=== PATIENT | male | born 1935 | race Caucasian/White ===

== ENCOUNTER 2016-08-02 06:51 | Emergency (ER) | payer OTHER ==
[~2016-08-02] VITALS: Ht 175.3 cm; Wt 74.0 kg
[~2016-08-02 06:51] MED LIST: ACET-1311 PO; FRRG PO; IBUP-1050 PO; ZNT/150 PO
[2016-08-02 06:56] VITALS: TEMP 37.8; Ht 175.3 cm; Wt 74.0 kg
[2016-08-02] MEDS ORDERED: SODIUM CHLORIDE 0.9% 1000ML 1,000 ML IV STA (07:10)
[2016-08-02] MEDS ORDERED: ONDANSETRON INJ 2 MG/ML 2 ML VIAL IV STA (07:10)
[2016-08-02] MEDS ORDERED: PANTOprazole INJ 40 MG in SYRINGE 0 ML IV ONE (07:15)
[2016-08-02 07:22] LABS: COMPLETE YES; EOS % 1.3 %; HEMATOCRIT 43.4 % (42-52); LYMPH % 3.4 %; LYMPH ABS # 0.16 K/uL (1.2-3.4); MEAN CELL VOLUME 88.4 fL (80-100); MEAN CORPUSCULAR HEMOGLOBIN 30.5 pg (25-34); MEAN CORPUSCULAR HGB CONC 34.6 g/dl (32-36); MEAN PLATELET VOLUME 9.7 fL (7.4-10.4); MONO % 6.8 %; NEUT % 88.5 %; PLATELET COUNT 183 K/uL (130-400); RED BLOOD COUNT 4.91 M/uL (4.7-6.1); WHITE BLOOD COUNT 4.74 K/uL (4.8-10.8)
[2016-08-02 07:33] LABS: BUN/CREATININE RATIO 15.9 (10-20); CALCIUM 8.7 mg/dl (8.5-10.1); CREATININE 1.4 mg/dl (0.60-1.40); POTASSIUM 3.6 mmol/L (3.5-5.1)
--- NOTE | 2016-08-02 07:38 | EMERGENCY ROOM VISIT NOTE ---
History Report prepared by Juan: Lizbet Crum Under the Supervision of: Dr. Ru Le D.O. First contact with patient: 06:56 Chief Complaint: VOMITING Stated Complaint: DIARRHEA/VOMITING/WEAK/LIGHTHEADED Nursing Triage Summary: Pt presents via BLS to room A. Pt reports nausea, vomitting, diarrhea since last night. pt reports "i feel weak." History of Present Illness The patient is a 80 year old male arriving by ambulance who presents to the Emergency Room with complaints of multiple episodes of vomiting since 1899 last night. Currently, he is feeling nauseous and he rates his discomfort as a 5/10. Since the time of onset, the patient has vomited 20 times. He has also passed 10 -12 movements of watery diarrhea. Patient states that he now feels generally weak, but he denies fevers, chills, headache, chest pain, cough, shortness of breath, abdominal pain, hematochezia, melena, rectal bleeding, hematuria, urinary symptoms or increased swelling to his legs. Patient states that he has recently been around several other people who have been ill as he has been in and out of the hospital with his . 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 He also has a history of bowel obstruction and a duodenal ulcer. He takes Prilosec PRN. Source of History: patient Onset: 1899 last night Position: abdomen Symptom Intensity: 5/10 Quality: other (vomiting) Timing: other (20 episodes) Associated Symptoms: + diarrhea, + nausea, + weakness, No SOB, No abdominal pain, No chest pain, No chills, No fevers Review of Systems See HPI for pertinent positives & negatives. A total of 10 systems reviewed and were otherwise negative. Past Medical & Surgical Medical Problems: (1) Abdominal adhesions (2) Bowel obstruction (3) Bowel obstruction (4) Duodenal ulcer (5) Duodenal ulcer Surgical Problems: (1) H/O abdominal surgery (2) History of bowel resection Social History Smoking Status: Former Smoker Marital Status: Housing Status: lives with significant other Occupation Status: retired Current/Historical Medications Scheduled Acetaminophen (Tylenol), 650 MG PO Q4HR PRN Lactobacillus (Floranex), 1 TAB PO TID Scheduled PRN Ibuprofen (Advil), 200-600 MG PO Q4H PRN for Pain Ondansetron Hcl (Zofran), 4 MG PO Q8H PRN for Nausea Ranitidine Hcl (Zantac), 150 MG PO DAILY PRN for REFLUX Allergies Coded Allergies: Penicillin G (Verified Allergy, Unknown, "YEARS AGO" - UNKNOWN, 08/02/16) Sulfa Antibiotics (Verified Allergy, Unknown, "YEARS AGO" UNKNOWN REACTION , 08/02/16) Physical Exam Vital Signs Date Time Temp Pulse Resp B/P Pulse Ox O2 Delivery O2 Flow Rate FiO2 08/02/16 09:28 99 18 122/54 95 Room Air 08/02/16 08:52 92 08/02/16 07:51 103 20 132/98 100 Room Air 08/02/16 07:16 100 08/02/16 06:56 37.8 97 18 115/78 94 Room Air Physical Exam GENERAL: Patient is awake, alert, and in no acute distress. Patient is resting comfortably and showing no signs of anxiety EYES: The conjunctivae are clear. The pupils are round and reactive. EARS, NOSE, MOUTH AND THROAT: The nose is without any evidence of any deformity. Mucous membranes are dry, tongue is midline NECK: The neck is nontender and supple. RESPIRATORY: Normal respiratory effort is noted there is no evidence of wheezing rhonchi or rales CARDIOVASCULAR: Tachycardic rate but regular rhythm noted but no murmurs rubs or gallops normal S1 normal S2 GASTROINTESTINAL: The abdomen is soft. Bowel sounds are present in all quadrants. Abdomen is nontender MUSCULOSKELETAL/EXTREMITIES: There is no evidence of gross deformity full range of motion is noted in the hips and shoulders SKIN: There is no obvious evidence of any rash. There are no petechiae, pallor or cyanosis noted. NEUROLOGIC: Patient is awake alert and oriented x3 strength is symmetric patellar reflexes are 2+ bilaterally Medical Decision & Procedures ER Provider Diagnostic Interpretation: X-ray results as stated below per interpretation by me and the radiologist. CT results as stated below per my review and radiologist interpretation. ABDOMEN 2VIEW W/PA CHEST RTN CLINICAL HISTORY: Abdominal pain and vomiting COMPARISON STUDY: 11/10/2015 FINDINGS: The erect chest reveals no free air. There is no focal pulmonary consolidation. There are no pleural effusions. Erect and supine views the abdomen reveal multiple air-fluid levels. There are dilated small bowel loops measuring up to 52 mm in diameter. There is a gas and stool collection within the right mid abdomen in an unusual appearing bowel loop, possibly colonic. This measures [address] scanning should be considered in follow-up. IMPRESSION: Abnormal bowel gas pattern. Suspected bowel obstruction. Unusual appearing dilated gas and stool-filled right mid abdominal bowel measuring [address] scanning should be considered in follow-up. Electronically signed by: Manuel Terry M.D. 08/02/2016 7:57 AM Hand fracture, left, concussion, contusion of multiple sites CT OF THE ABDOMEN AND PELVIS WITH CONTRAST CLINICAL HISTORY: Vomiting. Abnormal radiograph. COMPARISON STUDY: CT of the abdomen and pelvis March 01, 2016 and abdominal series August 02, 2016 TECHNIQUE: Following IV administration of 92 mL of Optiray-320, axial images of the abdomen and pelvis were obtained from the lung bases to the proximal femurs. Images were reviewed in the axial, sagittal, and coronal planes. IV contrast was administered without complication. CT DOSE: 566.35 mGycm FINDINGS: Lung bases are clear with the exception of atelectasis. There is no pneumatosis, free air or portal venous gas. A 1.4 cm hypodense lateral segment hepatic lesion is unchanged since CT of February 03, 2014. There is no biliary or pancreatic ductal dilatation. The spleen and adrenal glands are normal. There are bilateral parapelvic cysts. Several small bowel anastomoses are noted. Dilatation at the level of the anastomosis is unchanged since earlier exams. The colon is fluid-filled. Portions of the small bowel are fluid filled. The prostate is mildly enlarged. There is no lymphadenopathy. There are no suspicious skeletal lesions. There is no evidence for a bowel obstruction. IMPRESSION: 1. Several small bowel anastomosis identified. Bowel dilatation at the level of the anastomoses is unchanged since earlier exams. No evidence for a bowel obstruction. 2. Fluid-filled colon as well as portions of the small bowel which may reflect a diarrheal state/gastroenteritis. Electronically signed by: Mike Flores M.D. 08/02/2016 10:56 AM Laboratory Results 08/02/16 07:00 Red Blood Count 4.91, Mean Corpuscular Volume 88.4, Mean Corpuscular Hemoglobin 30.5, Mean Corpuscular Hemoglobin Concent 34.6, Mean Platelet Volume 9.7, Neutrophils (%) (Auto) 88.5, Lymphocytes (%) (Auto) 3.4, Monocytes (%) (Auto) 6.8, Eosinophils (%) (Auto) 1.3, Basophils (%) (Auto) 0.0, Neutrophils # (Auto) 4.20, Lymphocytes # (Auto) 0.16, Monocytes # (Auto) 0.32, Eosinophils # (Auto) 0.06, Basophils # (Auto) 0.00 08/02/16 07:00 Test 08/02/16 07:00 08/02/16 07:45 White Blood Count 4.74 K/uL (4.8-10.8) Red Blood Count 4.91 M/uL (4.7-6.1) Hemoglobin 15.0 g/dL (14.0-18.0) Hematocrit 43.4 % (42-52) Mean Corpuscular Volume 88.4 fL (80-100) Mean Corpuscular Hemoglobin 30.5 pg (25-34) Mean Corpuscular Hemoglobin Concent 34.6 g/dl (32-36) Platelet Count 183 K/uL (130-400) Mean Platelet Volume 9.7 fL (7.4-10.4) Neutrophils (%) (Auto) 88.5 % Lymphocytes (%) (Auto) 3.4 % Monocytes (%) (Auto) 6.8 % Eosinophils (%) (Auto) 1.3 % Basophils (%) (Auto) 0.0 % Neutrophils # (Auto) 4.20 K/uL (1.4-6.5) Lymphocytes # (Auto) 0.16 K/uL (1.2-3.4) Monocytes # (Auto) 0.32 K/uL (0.11-0.59) Eosinophils # (Auto) 0.06 K/uL (0-0.5) Basophils # (Auto) 0.00 K/uL (0-0.2) RDW Standard Deviation 48.3 fL (36.4-46.3) RDW Coefficient of Variation 15.2 % (11.5-14.5) Immature Granulocyte % (Auto) 0.0 % Immature Granulocyte # (Auto) 0.00 K/uL (0.00-0.02) Anion Gap 9.0 mmol/L (3-11) Est Creatinine Clear Calc Drug Dose 42.8 ml/min Estimated GFR () 55.0 Estimated GFR (Non- 47.5 BUN/Creatinine Ratio 15.9 (10-20) Calcium Level 8.7 mg/dl (8.5-10.1) Total Bilirubin 0.9 mg/dl (0.2-1) Direct Bilirubin 0.2 mg/dl (0-0.2) Aspartate Amino Transf (AST/SGOT) 17 U/L (15-37) Alanine Aminotransferase (ALT/SGPT) 23 U/L (12-78) Alkaline Phosphatase 69 U/L (45-117) Total Protein 6.4 gm/dl (6.4-8.2) Albumin 3.4 gm/dl (3.4-5.0) Lipase 85 U/L (73-393) Urine Color DK YELLOW Urine Appearance CLEAR (CLEAR) Urine pH 5.0 (4.5-7.5) Urine Specific [place] 1.024 (1.000-1.030) Urine Protein NEG (NEG) Urine Glucose (UA) NEG (NEG) Urine Ketones NEG (NEG) Urine Occult Blood NEG (NEG) Urine Nitrite NEG (NEG) Urine Bilirubin NEG (NEG) Urine Urobilinogen NEG (NEG) Urine Leukocyte Esterase NEG (NEG) Laboratory results per my review. Medications Administered Medications (Trade) Dose Ordered Sig/Aleah Route Start Time Stop Time Status Last Admin Dose Admin Sodium Chloride (Nss 1000ml) 1,000 ml @ 999 mls/hr Q1H1M STAT IV 08/02/16 07:10 08/02/16 08:10 DC 08/02/16 07:15 999 MLS/HR Ondansetron HCl 4 mg 4 mg NOW STAT IV 08/02/16 07:10 08/02/16 07:11 DC 08/02/16 07:15 4 MG Pantoprazole Sodium 40 mg/ Syringe 10 ml @ 5 mls/min NOW ONCE IV 08/02/16 07:15 08/02/16 07:16 DC 08/02/16 07:21 5 MLS/MIN Sodium Chloride (Nss 500ml) 500 ml @ 999 mls/hr Q31M STAT IV 08/02/16 08:30 08/02/16 09:00 DC 08/02/16 08:37 999 MLS/HR ED Course 0700: The patient was evaluated in room A2. A complete history and physical examination were performed. 0710: Zofran 4 mg IV, NSS bolus IV and Pantoprazole Sodium 40 mg/Syringe 10 ml @ 5 mls/min IV were ordered. 0830: Upon reevaluation, patient was doing well. Additional fluids will bordered. NSS 500 ml @ 999 mls/hr IV was ordered. 0935: I reevaluated the patient at this time and updated him on the results of his radiology reports. He will go to CT for further imaging studies. 1030: NSS 1,000 ml @ 200 mls/hr IV was ordered. 1130: Upon reevaluation, patient was doing well. I updated him on the results of his CT. The hospitalist will be contacted. 1135: After discussion with Ernestine MORAN, the patient will continue to be evaluated by the [facility] Hospitalist for further management. He verbalized his understanding and agreement with this treatment plan. Medical Decision Differential diagnosis: Etiologies such as gastroenteritis, food borne illness, infections, appendicitis , diverticulitis, inflammatory bowel disease, obstruction, GI bleed, biliary pathology, as well as others were entertained. Nursing notes reviewed. The patient is a 80-year-old male who presented to the emergency department for an evaluation of nausea vomiting and diarrhea. The patient had very extensive symptoms and appeared to be dehydrated on physical exam. The patient is a history of bowel obstruction in the past. The patient is also had adhesions. The patient did not appear to have a physical exam consistent with an acute surgical abdomen. He was treated with IV fluids and IV antiemetics and on subsequent reevaluation was feeling much better. The patient was discharged to home but was asked to return when his x-rays were read as possible bowel obstruction. The patient was still waiting for his ride outside and was brought back in through triage. A second encounter was created. The patient at that time was found have a fever. He was initially hypotensive and was treated with further IV hydration. CT the abdomen and pelvis did not reveal any definite signs of bowel obstruction but did show a very significant amount of fluid filled bowel. I do feel that the patient's diarrheal illness is likely to continue giving these findings. This reason I discussed his case with the on- call [facility] hospitalist group. They've agreed to evaluate the patient in the emergency department for further management and disposition. I discussed the patient's laboratory and radiographic studies with him. Consults Time Called: 2930 Consulting Physician: Ernestine MORAN - [facility] Returned Call: [phone] Discussed the patient's case. He will continue to be evaluated by the [facility] hospitalist for further management. Impression Primary Impression: Nausea, vomiting, and diarrhea Additional Impressions: Dehydration, Bowel obstruction Scribe Attestation The scribe's documentation has been prepared under my direction and personally reviewed by me in its entirety. I confirm that the note above accurately reflects all work, treatment, procedures, and medical decision making performed by me. Departure Information Dispostion Being Evaluated By Hospitalist (Sh[facility]) Prescriptions Ondansetron Hcl (ZOFRAN) 4 Mg Tab 4 MG PO Q8H Y for Nausea, #15 TAB Prov: Ru Le, 08/02/16 Referrals Roby Balderrama M.D. (PCP)
--- NOTE | 2016-08-02 07:59 | DIAGNOSTIC IMAGING REPORT ---
ABDOMEN 2VIEW W/PA CHEST RTN CLINICAL HISTORY: Abdominal pain and vomiting COMPARISON STUDY: 11/10/2015 FINDINGS: The erect chest reveals no free air. There is no focal pulmonary consolidation. There are no pleural effusions. Erect and supine views the abdomen reveal multiple air-fluid levels. There are dilated small bowel loops measuring up to 52 mm in diameter. There is a gas and stool collection within the right mid abdomen in an unusual appearing bowel loop, possibly colonic. This measures [address] scanning should be considered in follow-up. IMPRESSION: Abnormal bowel gas pattern. Suspected bowel obstruction. Unusual appearing dilated gas and stool-filled right mid abdominal bowel measuring [address] scanning should be considered in follow-up. Electronically signed by: Manuel Terry M.D. 08/02/2016 7:57 AM
[2016-08-02 08:06] LABS: URINE APPEARANCE CLEAR (CLEAR); URINE BILIRUBIN NEG (NEG); URINE COLOR DK YELLOW; URINE NITRITE NEG (NEG); URINE SPECIFIC GRAVITY 1.024 (1.000-1.030); UROBILINOGEN NEG (NEG)
[2016-08-02 08:09] LABS: MANUAL MICROSCOPIC REQUIRED? NO; REVIEW REQ? NO
[2016-08-02] MEDS ORDERED: SODIUM CHLORIDE 0.9% 500ML 500 ML IV STA (08:30)
[2016-08-02] MEDS ORDERED: ONDA4TAB46 PO (08:50)
[2016-08-02 09:28] VITALS: BP 122/54; PULSE 99; O2SAT 95
[2016-08-02] MEDS ORDERED: LACT1TAB4 PO (10:50)
== END 2016-08-02 09:37 | disposition home or self-care (01) ==
LOC: EDBD 06:51 → C.EDA 06:52
DX: R11.2 Nausea with vomiting, unspecified (principal); R19.7 Diarrhea, unspecified; E86.0 Dehydration; K63.89 Other specified diseases of intestine; Z87.891 Personal history of nicotine dependence

== ENCOUNTER 2016-08-02 10:00 | Inpatient (IN) | payer OTHER ==
[~2016-08-02] VITALS: Ht 175.3 cm; Wt 74.1 kg
[~2016-08-02 10:00] MED LIST changes: +ONDA4TAB46 PO
[2016-08-02] MEDS ORDERED: SODIUM CHLORIDE 0.9% 1000ML 1,000 ML IV STA (10:14)
--- NOTE | 2016-08-02 10:16 | EMERGENCY ROOM VISIT NOTE ---
ED Visit Note First contact with patient: 10:05 The patient is a 80-year-old male who presented to the emergency department after recently being discharged. The patient had symptoms of nausea vomiting and diarrhea. His abdomen exam was not consistent with an acute surgical abdomen however his x-rays were read as signs of possible obstruction. When I realized his x-ray showed signs of possible obstruction the patient was asked to return to the emergency department for a CAT scan the abdomen and pelvis but he had already been discharged and was awaiting his ride. He came back again through triage. Please see his initial chart from today earlier. I will continue to chart his progress on the more recent visit on that earlier history and physical.
[2016-08-02] MEDS ORDERED: OPTIRAY 320 IV PRN (10:30)
[2016-08-02] MEDS ORDERED: LACT1TAB4 PO (10:50)
--- NOTE | 2016-08-02 10:58 | DIAGNOSTIC IMAGING REPORT ---
CT OF THE ABDOMEN AND PELVIS WITH CONTRAST CLINICAL HISTORY: Vomiting. Abnormal radiograph. COMPARISON STUDY: CT of the abdomen and pelvis March 01, 2016 and abdominal series August 02, 2016 TECHNIQUE: Following IV administration of 92 mL of Optiray-320, axial images of the abdomen and pelvis were obtained from the lung bases to the proximal femurs. Images were reviewed in the axial, sagittal, and coronal planes. IV contrast was administered without complication. CT DOSE: 566.35 mGycm FINDINGS: Lung bases are clear with the exception of atelectasis. There is no pneumatosis, free air or portal venous gas. A 1.4 cm hypodense lateral segment hepatic lesion is unchanged since CT of February 03, 2014. There is no biliary or pancreatic ductal dilatation. The spleen and adrenal glands are normal. There are bilateral parapelvic cysts. Several small bowel anastomoses are noted. Dilatation at the level of the anastomosis is unchanged since earlier exams. The colon is fluid-filled. Portions of the small bowel are fluid filled. The prostate is mildly enlarged. There is no lymphadenopathy. There are no suspicious skeletal lesions. There is no evidence for a bowel obstruction. IMPRESSION: 1. Several small bowel anastomosis identified. Bowel dilatation at the level of the anastomoses is unchanged since earlier exams. No evidence for a bowel obstruction. 2. Fluid-filled colon as well as portions of the small bowel which may reflect a diarrheal state/gastroenteritis. Electronically signed by: Mike Flores M.D. 08/02/2016 10:56 AM
[2016-08-02 11:56] VITALS: O2SAT 95; Ht 175.3 cm; Wt 74.1 kg
[2016-08-02] MEDS ORDERED: ONDANSETRON INJ 2 MG/ML 2 ML VIAL IV PRN (12:00)
[2016-08-02 12:21] LABS: HEMATOCRIT 38.8 % (42-52); MEAN CELL VOLUME 88.6 fL (80-100); MEAN CORPUSCULAR HEMOGLOBIN 29.5 pg (25-34); MEAN CORPUSCULAR HGB CONC 33.2 g/dl (32-36); MEAN PLATELET VOLUME 9.9 fL (7.4-10.4); PLATELET COUNT 155 K/uL (130-400); RED BLOOD COUNT 4.38 M/uL (4.7-6.1)
[2016-08-02 12:47] LABS: BUN/CREATININE RATIO 15.5 (10-20); CALCIUM 7.6 mg/dl (8.5-10.1); CREATININE 1.2 mg/dl (0.60-1.40); MAGNESIUM 1.8 mg/dl (1.8-2.4)
[2016-08-02 12:50] LABS: ALB/GLOB RATIO 1.1 (0.9-2); PHOSPHORUS 2.3 mg/dl (2.5-4.9)
[2016-08-02] MEDS: ACETAMINOPHEN 325 MG TAB PO PRN (13:28)
[2016-08-02 13:40] VITALS: BP 112/71; PULSE 93; TEMP 37.8; O2SAT 97
[2016-08-02] MEDS ORDERED: IV FLUIDS COMPLETED PRN (13:45)
--- NOTE | 2016-08-02 14:16 | History and Physical ---
History & Physical Date & Time of Service: Aug 02, 2016 at 13:47 Chief Complaint: Nausea, Vomiting, Diarrhea Primary Care Physician: Roby Balderrama M.D. History of Present Illness 80 year old male who presents to the ER with nausea, vomiting, and diarrhea. Patient reports his symptoms began last evening around 7pm. He reports multiple episodes of vomiting and diarrhea since that time. He denies hematemesis, coffee ground emesis, BRBPR, or dark tarry stools. He denies abdominal pain. He reports chills but did not take his temperature. He reports his is currently admitted to the hospital with the same symptoms. He denies chest pain and shortness of breath. He reports feeling generally weak but denies lightheadedness, dizziness, diaphoresis, or syncopal events. He denies any urinary symptoms. In the ER, abdominal XR was concerning for SBO so CT abd/ pelvis was obtained that did not show a SBO but did show fluid filled colon, likely diarrheal illness. Patient was mildly hypotensive which improved with IVF. Temp noted to be 38.3. Creat 1.2. Past Medical/Surgical History Medical Problems: (1) Bowel obstruction Status: Resolved (2) Duodenal ulcer Status: Resolved Surgical Problems: (1) History of bowel resection Permanent Comment: x6 Status: Resolved Family History FH: pancreatic cancer BROTHER Social History Smoking Status: Former Smoker Alcohol Use: none Marital Status: Housing status: lives with family Multi-Drug Resistant Organisms History of MDRO: No Allergies Coded Allergies: Penicillin G (Verified Allergy, Unknown, "YEARS AGO" - UNKNOWN, 08/02/16) Sulfa Antibiotics (Verified Allergy, Unknown, "YEARS AGO" UNKNOWN REACTION , 08/02/16) Home Medications Scheduled Acetaminophen (Tylenol), 650 MG PO Q4HR PRN Lactobacillus (Floranex), 1 TAB PO TID Scheduled PRN Ibuprofen (Advil), 200-600 MG PO Q4H PRN for Pain Ondansetron Hcl (Zofran), 4 MG PO Q8H PRN for Nausea Ranitidine Hcl (Zantac), 150 MG PO DAILY PRN for REFLUX Review of Systems 10 point review of systems was completed with the pertinent positives and negatives noted per the HPI Physical Exam Vital Signs Date Time Temp Pulse Resp B/P Pulse Ox O2 Delivery O2 Flow Rate FiO2 08/02/16 13:23 37.8 08/02/16 13:20 37.8 94 22 120/64 93 08/02/16 13:19 94 22 120/64 93 Room Air 08/02/16 12:56 86 08/02/16 11:56 95 Room Air 08/02/16 11:32 98 23 116/66 95 Room Air 08/02/16 10:49 94 08/02/16 10:03 38.3 109 18 96/61 94 Room Air General Appearance: WD/WN, no apparent distress Head: normocephalic, atraumatic Eyes: normal inspection, PERRL, EOMI, sclerae normal, funduscopic exam normal ENT: normal ENT inspection, hearing grossly normal, TMs normal, pharynx normal Neck: supple, no adenopathy, thyroid normal, no JVD, no carotid bruits, trachea midline Respiratory/Chest: chest non-tender, lungs clear, normal breath sounds, no respiratory distress, no accessory muscle use Cardiovascular: regular rate, rhythm, no edema, no gallop, no JVD, no murmur, normal peripheral pulses, + tachycardia, + systolic murmur Abdomen/GI: normal bowel sounds, non tender, soft, no organomegaly, no pulsatile mass Back: normal inspection, no CVA tenderness Extremities/Musculoskelatal: normal inspection, no calf tenderness, normal capillary refill, no pedal edema, normal range of motion, non-tender, pelvis stable Neurologic/Psych: saturator II-XII nml as tested, no motor/sensory deficits, alert, normal mood/affect, normal reflexes, oriented x 3 Skin: normal color, warm/dry, no rash Lymphatic: no adenopathy Diagnostics Laboratory Results Results Past 24 Hours Test 08/02/16 12:07 Range/Units White Blood Count 3.70 4.8-10.8 K/uL Red Blood Count 4.38 4.7-6.1 M/uL Hemoglobin 12.9 14.0-18.0 g/dL Hematocrit 38.8 42-52 % Mean Corpuscular Volume 88.6 80-100 fL Mean Corpuscular Hemoglobin 29.5 25-34 pg Mean Corpuscular Hemoglobin Concent 33.2 32-36 g/dl RDW Standard Deviation 49.3 36.4-46.3 fL RDW Coefficient of Variation 15.2 11.5-14.5 % Platelet Count 155 130-400 K/uL Mean Platelet Volume 9.9 7.4-10.4 fL Sodium Level 145 136-145 mmol/L Potassium Level 4.0 3.5-5.1 mmol/L Chloride Level 114 98-107 mmol/L Carbon Dioxide Level 22 21-32 mmol/L Anion Gap 9.0 3-11 mmol/L Blood Urea Nitrogen 19 7-18 mg/dl Creatinine 1.20 0.60-1.40 mg/dl Est Creatinine Clear Calc Drug Dose 49.9 ml/min Estimated GFR () 66.3 Estimated GFR (Non- 57.2 BUN/Creatinine Ratio 15.5 10-20 Random Glucose 111 70-99 mg/dl Lactic Acid Level 1.3 0.4-2.0 mmol/L Calcium Level 7.6 8.5-10.1 mg/dl Phosphorus Level 2.3 2.5-4.9 mg/dl Magnesium Level 1.8 1.8-2.4 mg/dl Total Bilirubin 0.7 0.2-1 mg/dl Aspartate Amino Transf (AST/SGOT) 13 15-37 U/L Alanine Aminotransferase (ALT/SGPT) 20 12-78 U/L Alkaline Phosphatase 58 45-117 U/L Total Protein 5.6 6.4-8.2 gm/dl Albumin 2.9 3.4-5.0 gm/dl Globulin 2.7 2.5-4.0 gm/dl Albumin/Globulin Ratio 1.1 0.9-2 Lipase 79 73-393 U/L Microbiology Results 08/02/16 Blood Culture, Zuleyma Batch Pending 08/02/16 Blood Culture, Ordered Pending Diagnostic Radiology CT ABD/PELVIS IMPRESSION: 1. Several small bowel anastomosis identified. Bowel dilatation at the level of the anastomoses is unchanged since earlier exams. No evidence for a bowel obstruction. 2. Fluid-filled colon as well as portions of the small bowel which may reflect a diarrheal state/gastroenteritis. Impression Assessment and Plan NAUSEA, VOMITING, DIARRHEA; SIRS - admit to med/surg - patient presenting with N/V/D x 1 day; noted to have similar symptoms as well - meets SIRS criteria with temp 38.3, mild tachycardia, and borderline hypotension - HR and BP improved with IVF - CT showing liquid throughout colon, likely diarrhea illness - due to SIRS, will empirically place on Cipro and Flagyl until stool studies are resulted - lactic acid WNL - supportive care with IVF, IV PPI, PRN antiemetics - clear liquid diet for now DVT PROPHYLAXIS - SQ Heparin DISPO - In my clinical judgment this beneficiary meets acute admission criteria, established by [facility], that includes being hospitalized through two midnights. Attending Note: Patient is interviewed and examined along with Ernestine MORAN Patient is a 80 Yr old male with with PMH of Duodenal Ulcer, Bowel resection presents with history of nausea, vomiting, diarrhea, generalized weakness and low grade fever since 1 day duration. He denies any abdominal pain blood in stools or emesis. His had similar symptoms and is currently being treated at [facility]. He denies any other relevant history. Physical Exam: Vitals signs as above General: No apparent distress CVS: S1, S2, + murmur, Tachycardia Resp: CTA Abd: soft, non tender, no guarding/rigidity Neuro: No focal deficits Assessment and plan: SIRS and Gastroenteritis: Currently mildly hypotensive, tachycardic CT abd: No signs of obstruction Start on IV fluids, Zofran PRN Empirically start on Cipro and flagyl Plan to DC antibiotics if stool studies/Blood cultures negative Advance diet as tolerated H/O Duodenal Ulcer and bowel resection: Stable No signs of obstruction on CT abd Continue PPI DVT Px: Heparin SQ Advanced Directives Existing Advance Directive: Yes Existing Living Will: Yes Existing Power of Lead Slot Technician: Yes VTE Prophylaxis VTE Risk Assessment Done? Y/N: Yes Risk Level: Moderate
[2016-08-02 14:26] LABS: INR 1.1 (0.9-1.1); PROTHROMBIN TIME (PATIENT) 11.6 SECONDS (9.0-12.0)
[2016-08-02] MEDS: PANTOprazole INJ 40 MG in SYRINGE 0 ML IV SCH ×2 (15:04→15:05)
[2016-08-02] MEDS: METRONIDAZOLE / NSS 500 MG in PREMIXED NSS 100 ML IV SCH ×2 (15:06→21:29)
[2016-08-02] MEDS: SODIUM CHLORIDE 0.9% 1000ML 1,000 ML IV SCH (15:06)
[2016-08-02 15:35] VITALS: BP 105/57; PULSE 83; TEMP 37.8; O2SAT 94
[2016-08-02] MEDS: LACTOBACILLUS ACIDOPHILUS (FLORANEX) TAB PO SCH ×2 (16:37→21:24)
[2016-08-02] MEDS: CIPROFLOXACIN / D5W 400 MG in PREMIXED IN D5W 200 ML IV SCH (16:37)
[2016-08-02] MEDS: HEPARIN SOD 5000 UNIT/0.5 ML CARP SQ SCH (21:27)
[2016-08-03] MEDS: SODIUM CHLORIDE 0.9% 1000ML 1,000 ML IV SCH (00:09)
[2016-08-03 00:44] VITALS: BP 103/61; PULSE 76; TEMP 37.2; O2SAT 94
[2016-08-03] MEDS: CIPROFLOXACIN / D5W 400 MG in PREMIXED IN D5W 200 ML IV SCH ×2 (02:36→14:36)
[2016-08-03] MEDS: METRONIDAZOLE / NSS 500 MG in PREMIXED NSS 100 ML IV SCH ×3 (05:56→22:29)
[2016-08-03 07:12] LABS: HEMATOCRIT 33.4 % (42-52); MEAN CELL VOLUME 88.6 fL (80-100); MEAN CORPUSCULAR HEMOGLOBIN 29.4 pg (25-34); MEAN CORPUSCULAR HGB CONC 33.2 g/dl (32-36); MEAN PLATELET VOLUME 10.3 fL (7.4-10.4); PLATELET COUNT 127 K/uL (130-400); RED BLOOD COUNT 3.77 M/uL (4.7-6.1); WHITE BLOOD COUNT 3.57 K/uL (4.8-10.8)
[2016-08-03 07:35] VITALS: BP 111/61; PULSE 70; TEMP 36.8; O2SAT 95
[2016-08-03 07:47] LABS: BUN/CREATININE RATIO 14.9 (10-20); CALCIUM 7.4 mg/dl (8.5-10.1); CREATININE 1.1 mg/dl (0.60-1.40); POTASSIUM 3.5 mmol/L (3.5-5.1)
[2016-08-03 08:00] VITALS: O2SAT 95
[2016-08-03 08:03] LABS: PHOSPHORUS 1.7 mg/dl (2.5-4.9)
[2016-08-03] MEDS: HEPARIN SOD 5000 UNIT/0.5 ML CARP SQ SCH ×2 (09:00→20:20)
[2016-08-03] MEDS: LACTOBACILLUS ACIDOPHILUS (FLORANEX) TAB PO SCH ×3 (09:08→20:17)
[2016-08-03] MEDS: ACETAMINOPHEN 325 MG TAB PO PRN (15:39)
[2016-08-03 16:00] VITALS: BP 121/67; PULSE 75; TEMP 36.8; O2SAT 97
--- NOTE | 2016-08-03 17:23 | Progress Note ---
Internal Med Progress Note Date of Service: Aug 03, 2016. (Ernestine Moran CRNP) Provider Documentation: SUBJECTIVE: Patient seen with Dr. Mancuso. Patient reports much improvement in his symptoms today. No further diarrhea or vomiting. Tolerating clear liquids. Feels generally weak, no lightheadedness or dizziness. No chest pain or shortness of breath. OBJECTIVE: Vital Signs-as noted below Exam: please refer to Dr. Mancuso's addendum for physical exam Lab data as noted below. ASSESSMENT & PLAN: NAUSEA, VOMITING, DIARRHEA; SIRS - patient improving today, no further diarrhea or vomiting - patient presenting with N/V/D x 1 day; noted to have similar symptoms as well - meets SIRS criteria with temp 38.3, mild tachycardia, and borderline hypotension - HR and BP improved with IVF - CT showing liquid throughout colon, likely diarrhea illness - due to SIRS, will empirically place on Cipro and Flagyl until stool studies are resulted (still pending); but suspect viral gastroenteritis - lactic acid WNL - supportive care with IVF, IV PPI, PRN antiemetics - d/c fluids today, change IV PPI to PO ranitidine, advance diet DVT PROPHYLAXIS - SQ Heparin DISPO - expect d/c home tomorrow (Ernestine Moran CRNP) ASSESSMENT & PLAN: Attending Note: Patient is interviewed and examined along with Ernestine MORAN Patient states he feels much better when compared to yesterday. States diarrhea resolved. Denies any nausea, vomiting, abd pain. Physical Exam: Vitals signs as noted above General: Moderately built and nourished, No distress CVS; S1, S2, + murmur Resp: CTA Abd: Soft, non tender, BS present Neuro: No focal deficits Assessment and plan: SIRS and Gastroenteritis: Improving clinically CT abd: No signs of obstruction Tolerating diet, DC IV fluids, Zofran PRN Continue Cipro and Flagyl Stool studies pending Will advance diet H/O Duodenal Ulcer and bowel resection: Stable No signs of obstruction on CT abd Continue PPI DVT Px: Heparin SQ Disposition: Plan to discharge tomorrow if stable Vital Signs: Date Time Temp Pulse Resp B/P Pulse Ox O2 Delivery O2 Flow Rate FiO2 08/03/16 16:00 Room Air 08/03/16 16:00 36.8 75 18 121/67 97 Room Air 08/03/16 08:00 95 Room Air 08/03/16 07:35 36.8 70 18 111/61 95 Room Air 08/03/16 00:44 37.2 76 18 103/61 94 Room Air 08/03/16 00:00 Room Air (Will Mancuso MD) Lab Results: Results Past 24 Hours Test 08/03/16 06:36 Range/Units White Blood Count 3.57 4.8-10.8 K/uL Red Blood Count 3.77 4.7-6.1 M/uL Hemoglobin 11.1 14.0-18.0 g/dL Hematocrit 33.4 42-52 % Mean Corpuscular Volume 88.6 80-100 fL Mean Corpuscular Hemoglobin 29.4 25-34 pg Mean Corpuscular Hemoglobin Concent 33.2 32-36 g/dl RDW Standard Deviation 49.4 36.4-46.3 fL RDW Coefficient of Variation 15.2 11.5-14.5 % Platelet Count 127 130-400 K/uL Mean Platelet Volume 10.3 7.4-10.4 fL Sodium Level 146 136-145 mmol/L Potassium Level 3.5 3.5-5.1 mmol/L Chloride Level 115 98-107 mmol/L Carbon Dioxide Level 24 21-32 mmol/L Anion Gap 7.0 3-11 mmol/L Blood Urea Nitrogen 16 7-18 mg/dl Creatinine 1.10 0.60-1.40 mg/dl Est Creatinine Clear Calc Drug Dose 54.5 ml/min Estimated GFR () 73.6 Estimated GFR (Non- 63.5 BUN/Creatinine Ratio 14.9 10-20 Random Glucose 83 70-99 mg/dl Calcium Level 7.4 8.5-10.1 mg/dl Phosphorus Level 1.7 2.5-4.9 mg/dl (Will Mancuso MD)
[2016-08-03] MEDS ORDERED: RANITIDINE HCL 150 MG TAB PO ONE (17:30)
[2016-08-04 00:31] VITALS: BP 124/67; PULSE 63; TEMP 36.7; O2SAT 95
[2016-08-04] MEDS: CIPROFLOXACIN / D5W 400 MG in PREMIXED IN D5W 200 ML IV SCH (02:11)
[2016-08-04] MEDS: METRONIDAZOLE / NSS 500 MG in PREMIXED NSS 100 ML IV SCH (05:45)
[2016-08-04 06:02] LABS: MEAN CELL VOLUME 87.1 fL (80-100); MEAN CORPUSCULAR HEMOGLOBIN 29.6 pg (25-34); MEAN CORPUSCULAR HGB CONC 33.9 g/dl (32-36); PLATELET COUNT 120 K/uL (130-400); RED BLOOD COUNT 3.79 M/uL (4.7-6.1); WHITE BLOOD COUNT 3.92 K/uL (4.8-10.8)
[2016-08-04 06:40] LABS: BUN/CREATININE RATIO 13.1 (10-20); CALCIUM 7.9 mg/dl (8.5-10.1); CREATININE 0.88 mg/dl (0.60-1.40); POTASSIUM 3.3 mmol/L (3.5-5.1)
[2016-08-04] MEDS: LACTOBACILLUS ACIDOPHILUS (FLORANEX) TAB PO SCH (07:43)
[2016-08-04] MEDS: HEPARIN SOD 5000 UNIT/0.5 ML CARP SQ SCH (07:45)
[2016-08-04] MEDS ORDERED: RANITIDINE HCL 150 MG TAB PO SCH (08:00)
[2016-08-04 08:13] VITALS: BP 155/77; PULSE 69; TEMP 36.6; O2SAT 98
[2016-08-04] MEDS ORDERED: POTASSIUM CHLORIDE 10 MEQ TABCR PO ONE (08:45)
--- NOTE | 2016-08-04 09:09 | DIAGNOSTIC IMAGING REPORT ---
KUB CLINICAL HISTORY: Abdominal distention, vomiting, diarrhea COMPARISON STUDY: 08/02/2016 FINDINGS: There is mild gaseous prominence the colon. There are no transition zone to indicate a bowel obstruction. There is a minimally dilated left mid abdominal small bowel loop. There is a linear opacity projecting of the pelvis. This is present the prior study. This may represent prior extravasated contrast. There are multiple pelvic basin calcifications likely representing phleboliths. IMPRESSION: Diminished bowel distention. Electronically signed by: Manuel Terry M.D. 08/04/2016 9:06 AM Dictated Date/Time: 08/04/2016 9:04 AM
--- NOTE | 2016-08-04 10:54 | Hospitalist Progress Note ---
Hospitalist Progress Note Date of Service Aug 04, 2016. Subjective Pt evaluation today including: conversation w/ patient, physical exam, lab review, review of studies, review of inpatient medication list Patient is seen and examined at bedside. States having an episode semiformed BM this morning. Abdominal distention better after BM. Denies any nausea, vomiting, abdominal pain. Medications Medications (Trade) Dose Ordered Sig/Aleah Route Start Time Stop Time Status Last Admin Dose Admin Ranitidine HCl (zANTac TAB) 150 mg 1730 ONCE PO 08/03/16 17:30 08/03/16 17:31 DC 08/03/16 19:15 150 MG Ranitidine HCl (zANTac TAB) 150 mg QAM PO 08/04/16 08:00 09/03/16 07:59 08/04/16 07:43 150 MG Potassium Chloride (Klor-Con M10) 40 meq NOW ONCE PO 08/04/16 08:45 08/04/16 09:04 DC 08/04/16 09:37 40 MEQ Objective Vital Signs Date Time Temp Pulse Resp B/P Pulse Ox O2 Delivery O2 Flow Rate FiO2 08/04/16 08:13 36.6 69 18 155/77 98 Room Air 08/04/16 02:20 Room Air 08/04/16 00:31 36.7 63 18 124/67 95 Room Air 08/03/16 16:00 Room Air 08/03/16 16:00 36.8 75 18 121/67 97 Room Air Physical Exam General Appearance: WD/WN, no apparent distress Eyes: normal inspection, PERRL, EOMI, sclerae normal ENT: normal ENT inspection, hearing grossly normal, TMs normal, pharynx normal Neck: supple, no adenopathy, thyroid normal, no JVD, no carotid bruits, trachea midline Respiratory/Chest: chest non-tender, lungs clear, normal breath sounds, no respiratory distress, no accessory muscle use Cardiovascular: regular rate, rhythm, no edema, no gallop, no JVD, + systolic murmur Abdomen: normal bowel sounds, non tender, soft, no organomegaly, no pulsatile mass Extremities: normal range of motion, non-tender, normal inspection, no pedal edema, no calf tenderness, normal capillary refill, pelvis stable Neurologic/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: 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, no motor/sensory deficits, alert, normal mood/affect, oriented x 3 Skin: normal color, warm/dry, no rash Lymphatic: no adenopathy Laboratory Results Last 24 Hours Test 08/04/16 05:30 White Blood Count 3.92 K/uL Red Blood Count 3.79 M/uL Hemoglobin 11.2 g/dL Hematocrit 33.0 % Mean Corpuscular Volume 87.1 fL Mean Corpuscular Hemoglobin 29.6 pg Mean Corpuscular Hemoglobin Concent 33.9 g/dl RDW Standard Deviation 47.6 fL RDW Coefficient of Variation 14.9 % Platelet Count 120 K/uL Mean Platelet Volume 10.0 fL Sodium Level 145 mmol/L Potassium Level 3.3 mmol/L Chloride Level 113 mmol/L Carbon Dioxide Level 24 mmol/L Anion Gap 8.0 mmol/L Blood Urea Nitrogen 12 mg/dl Creatinine 0.88 mg/dl Est Creatinine Clear Calc Drug Dose 68.1 ml/min Estimated GFR () 94.7 Estimated GFR (Non- 81.7 BUN/Creatinine Ratio 13.1 Random Glucose 87 mg/dl Calcium Level 7.9 mg/dl Diagnostic Results KUB: Diminished bowel distention. CT Abd: 1. Several small bowel anastomosis identified. Bowel dilatation at the level of the anastomoses is unchanged since earlier exams. No evidence for a bowel obstruction. 2. Fluid-filled colon as well as portions of the small bowel which may reflect a diarrheal state/gastroenteritis. Assessment and Plan Patient is a 80 Yr old male with with PMH of Duodenal Ulcer, Bowel resection presents with history of nausea, vomiting, diarrhea, generalized weakness and low grade fever since 1 day duration. He denies any abdominal pain blood in stools or emesis. His had similar symptoms and is currently being treated at [facility]. He denies any other relevant history. SIRS and Gastroenteritis: Likely Viral origin Stool for C.diff is negative SIRS criteria parameters improved CT abd: No signs of obstruction Repeat KUB:No obstruction IV fluids discontinued, Zofran PRN DC IV Abx: Cipro and flagyl Blood cultures negative to date Tolerating diet H/O Duodenal Ulcer and bowel resection: Stable No signs of obstruction on CT abd Continue PPI DVT Px: Heparin SQ
--- NOTE | 2016-08-04 11:05 | Discharge Instructions ---
Discharge Instructions Admission Reason for Admission: Nausea, Vomiting And Diarrhea Discharge Discharge Diagnosis / Problem: Viral Gastroenteritis Discharge Goals Goal(s): Decrease discomfort, Improve function Activity Recommendations Activity Limitations: resume your previous activity Exercise/Sports Limitations: as tolerated . Instructions / Follow-Up Instructions / Follow-Up Follow up with your Primary Care Provider in 1 week Take adequate oral intake to keep yourself hydrated Seek immediate medical attention if you develop any fever, abdominal pain, worsening diarrhea, blood in stools Current Hospital Diet Patient's current hospital diet: Regular Diet Discharge Diet Recommended Diet: Regular Diet Pending Studies Studies pending at discharge: yes List of pending studies: Stool Culture Medical Emergencies . Who to Call and When: Medical Emergencies: If at any time you feel your situation is an emergency, please call 911 immediately. . Non-Emergent Contact Non-Emergency issues call your: Primary Care Provider Call Non-Emergent contact if: you have a fever, your pain is worsening, you have any medication questions . . "Provider Documentation" section prepared by Will Mancuso. VTE Core Measure Inpt VTE Proph given/why not?: Unfractionated heparin SQ
[2016-08-04 11:13] VITALS: BP 155/77; PULSE 69; TEMP 36.6; O2SAT 98
--- NOTE | 2016-08-04 11:33 | Discharge Summary ---
Discharge Summary Admission Date: Aug 02, 2016 at 12:20 Discharge Date: Aug 04, 2016 Discharge Disposition: Home Principal Diagnosis: SIRS, Viral Gastroenteritis Secondary Diagnoses/Problems: H/O duodenal ulcer and recurrent SBOs Procedures: CT ABD/PELVIS IMPRESSION 08/02/16: 1. Several small bowel anastomosis identified. Bowel dilatation at the level of the anastomoses is unchanged since earlier exams. No evidence for a bowel obstruction. 2. Fluid-filled colon as well as portions of the small bowel which may reflect a diarrheal state/gastroenteritis. KUB XR IMPRESSION 08/04/16: Diminished bowel distention. Medication Reconciliation Continued Medications: Acetaminophen (Tylenol) 325 Mg Tab 650 MG PO Q4HR PRN, 0 Refills Ibuprofen (Advil) 200 Mg Tab 200-600 MG PO Q4H PRN for Pain, TAB Lactobacillus (Floranex) 1 Tab Tab 1 TAB PO TID Ondansetron Hcl (Zofran) 4 Mg Tab 4 MG PO Q8H PRN for Nausea, #15 TAB Ranitidine Hcl (Zantac) 150 Mg Tab 150 MG PO DAILY PRN for REFLUX Admission Information HPI (per Admitting provider): 80 year old male who presents to the ER with nausea, vomiting, and diarrhea. Patient reports his symptoms began last evening around 7pm. He reports multiple episodes of vomiting and diarrhea since that time. He denies hematemesis, coffee ground emesis, BRBPR, or dark tarry stools. He denies abdominal pain. He reports chills but did not take his temperature. He reports his is currently admitted to the hospital with the same symptoms. He denies chest pain and shortness of breath. He reports feeling generally weak but denies lightheadedness, dizziness, diaphoresis, or syncopal events. He denies any urinary symptoms. In the ER, abdominal XR was concerning for SBO so CT abd/ pelvis was obtained that did not show a SBO but did show fluid filled colon, likely diarrheal illness. Patient was mildly hypotensive which improved with IVF. Temp noted to be 38.3. Creat 1.2. Physical Exam (per Admitting): General Appearance: WD/WN, no apparent distress Head: normocephalic, atraumatic Eyes: normal inspection, PERRL, EOMI, sclerae normal, funduscopic exam normal ENT: normal ENT inspection, hearing grossly normal, TMs normal, pharynx normal Neck: supple, no adenopathy, thyroid normal, no JVD, no carotid bruits, trachea midline Respiratory/Chest: chest non-tender, lungs clear, normal breath sounds, no respiratory distress, no accessory muscle use Cardiovascular: regular rate, rhythm, no edema, no gallop, no JVD, no murmur , normal peripheral pulses, + tachycardia, + systolic murmur Abdomen/GI: normal bowel sounds, non tender, soft, no organomegaly, no pulsatile mass Back: normal inspection, no CVA tenderness Extremities/Musculoskelatal: normal inspection, no calf tenderness, normal capillary refill, no pedal edema, normal range of motion, non-tender, pelvis stable 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 His had similar symptoms and was admitted to the hospital as well. On admission, patient met SIRS criteria with tachycardia, fever, and borderline BP. Vitals improved with IVF. Lactic acid was negative. CT abd/ pelvis was negative for acute findings. Due to SIRS criteria, patient was started empirically on Cipro and Flagyl. These were discontinued once stools studies resulted as negative. Blood cultures were negative as well. Patient was given IVF, IV PPI, and PRN antiemetics. Patient was started on a clear liquid diet which was advanced and he tolerated well. IVF were stopped and IV PPI was changed to PO ranitidine which he takes at home. On the day of discharge, patient was complaining of some increased abdominal distention however denied nausea or abdominal pain. KUB was obtained that was negative for obstruction. Patient had a bowel movement and distention improved. Labs were unremarkable during admission. Total time spent on discharge = 30 minutes This includes examination of the patient, discharge planning, medication reconciliation, and communication with other providers. Discharge Instructions Discharge Instructions Admission Reason for Admission: Nausea, Vomiting And Diarrhea Discharge Discharge Diagnosis / Problem: Viral Gastroenteritis Discharge Goals Goal(s): Decrease discomfort, Improve function Activity Recommendations Activity Limitations: resume your previous activity Exercise/Sports Limitations: as tolerated . Instructions / Follow-Up Instructions / Follow-Up Follow up with your Primary Care Provider in 1 week Take adequate oral intake to keep yourself hydrated Seek immediate medical attention if you develop any fever, abdominal pain, worsening diarrhea, blood in stools Current Hospital Diet Patient's current hospital diet: Regular Diet Discharge Diet Recommended Diet: Regular Diet Pending Studies Studies pending at discharge: yes List of pending studies: Stool Culture Medical Emergencies . Who to Call and When: Medical Emergencies: If at any time you feel your situation is an emergency, please call 911 immediately. . Non-Emergent Contact Non-Emergency issues call your: Primary Care Provider Call Non-Emergent contact if: you have a fever, your pain is worsening, you have any medication questions . . "Provider Documentation" section prepared by Will Mancuso. VTE Core Measure Inpt VTE Proph given/why not?: Unfractionated heparin SQ Additional Copies To Roby Balderrama M.D.
--- NOTE | 2016-08-08 06:51 | EDITING REQUIRED CODING QUERY ---
CODING QUERY To promote full compliance with coding requirements relating to patient care, provider participation is requested in all cases of neonatal social worker uncertainty. Please assist us with the question(s) below: Coding Question(s): Dr. Mancuso, The following is documented in the chart: Patient meets SIRS criteria with temp 38.3, mild tachycardia, and borderline hypotension?. 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
== END 2016-08-04 11:53 | disposition home or self-care (01) | DRG 392 ==
LOC: ENRESERVTM → ENRESERVDT → C.EDB 10:15 → C.MS4W 12:20
PROVIDERS: ADMIT Internal Medicine; ATTEND Internal Medicine
DX: A08.4 Viral intestinal infection, unspecified (principal); R65.10 Systemic inflammatory response syndrome (SIRS) of non-infectious origin without acute organ dysfunction; K26.9 Duodenal ulcer, unspecified as acute or chronic, without hemorrhage or perforation; Z87.891 Personal history of nicotine dependence; Z90.49 Acquired absence of other specified parts of digestive tract; Z79.899 Other long term (current) drug therapy; E86.0 Dehydration; K63.89 Other specified diseases of intestine

== ENCOUNTER → 2016-08-31 | Outpatient (CLI) | payer OTHER ==
[~2016-08-31] MED LIST changes: -FRRG PO; +LACT1TAB4 PO
== END | disposition home or self-care (01) ==
LOC: C.PATHSPEC 18:17
PROVIDERS: ATTEND Urology
DX: R97.20 Elevated prostate specific antigen [PSA] (principal)

== ENCOUNTER → 2018-02-18 | Outpatient (CLI) | payer OTHER ==
[~2018-02-18] MED LIST changes: +GADAVIST IV PRN; -ONDA4TAB46 PO
--- NOTE | 2018-02-19 07:02 | DIAGNOSTIC IMAGING REPORT ---
PROSTATE MRI COMBO CLINICAL HISTORY: Elevated PSA. TECHNIQUE: Multisequence, multiplanar MR imaging of the prostate was performed before and after the intravenous administration of 7.5 cc of Gadavist. Post contrast imaging was performed utilizing dynamic enhancement. Additional postprocessing was performed on a separate [employer] workstation by the radiologist for 3-D volumetric segmentation of the prostate and contouring of region(s) of interest (SAMIA) for targeting. COMPARISON: None. FINDINGS: Prostate: The prostate measures 5.1 x 4.2 x 4.3 cm cm (DynaCAD prostate boundary segmentation volume 46.75 mL). Moderate changes of benign prostatic hyperplasia. Precontrast T1 weighted imaging demonstrates no evidence of intrinsic T1 hyperintensity to suggest hemorrhage. Suspicious lesion(s) described below: Lesion (Pipeliner CRMaCAD SAMIA) 1: Note is made of a 2 x 0.7 x 0.9 cm T2 hypointense focus within the left anterior mid aspect of the gland which appears to involve the peripheral and transitional zones. This demonstrates increased signal intensity on the diffusion-weighted sequence with diminished signal intensity on the ADC sequence with evidence for increased vascularity. This is considered a PI-RADS: 5 lesion. Clinically significant cancer is highly likely to be present. Seminal vesicles normal. Bladder: Normal. Bowel: Visualized portion of the rectum normal. Peritoneum: No free fluid in the pelvis. Lymph nodes: No lymphadenopathy in the visualized portion of the pelvis. Vasculature: Iliac vessels patent. Abdominal wall: Normal. Osseous structures: Normal bone marrow signal intensity. IMPRESSION: 1. 2 x 0.7 x 0.9 cm T2 hypointense focus with restricted diffusion within the left anterior mid aspect of the gland which appears to involve the peripheral and transitional zones. Associated hypervascularity. This is considered a PI-RADS: 5 lesion. Clinically significant cancer is highly likely to be present. This lesion has been segmented for targeted biopsy. 2. Moderate benign prostatic hyperplasia. Electronically signed by: Mike Flores M.D. 02/19/2018 7:00 AM Dictated Date/Time: 02/18/2018 10:59 AM
== END | disposition home or self-care (01) ==
LOC: C.MRIBC 08:20
PROVIDERS: ATTEND Urology
DX: N40.0 Benign prostatic hyperplasia without lower urinary tract symptoms (principal)

== ENCOUNTER 2020-10-29 12:15 | Observation (INO) ==
[2020-10-29] MEDS ORDERED: NITROGLYCERIN SL 0.4 MG/TAB TAB SL PRN (12:26)
[2020-10-29] MEDS ORDERED: ASPIRIN CHEW 324 MG PO STA (12:26)
--- NOTE | 2020-10-29 12:31 | Emergency Department Note ---
Impression & Plan Chest pain, HTN (hypertension), Leukopenia, High serum chloride ED Provider Note NAME: KRISTIN ALVAREZ AGE: 85 SEX: M : 1935 ARRIVES VIA: Walk-In INFORMANT: Patient ED PROVIDER(S): Robel Brink DO CHIEF COMPLAINT: chest pain HPI: Patient is an 85-year-old male who presents the ER with a past medical history of hypertension and previous smoker for chest pain. Describes as a pressure going to bilateral shoulders. No belly pain, nausea, vomiting, or d iarrhea. Denies any shortness of breath. Admits to losing his about 2 weeks ago. No other exacerbating or remitting factors. He has never had this before. Pain feels like a pressure and radiates throughout bilateral chest. About 2-3 out of 10 currently. No other exacerbating or remitting factors. ROS: See above HPI for pertinent positives & negatives. A total of 10 systems reviewed and were otherwise negative. PAST MEDICAL HISTORY:See Below PAST SURGICAL HISTORY:See Below FAMILY HISTORY:See Below SOCIAL HISTORY:See Below HOME MEDICATIONS:See Below ALLERGIES:See Below VITALS:See Below PHYSICAL EXAMINATION: GENERAL: Sitting up in bed, alert, well appearing, well nourished, no distress, non-toxic EYE EXAM: normal conjunctiva. OROPHARYNX: no exudate, no erythema, lips, buccal mucosa, and tongue normal and mucous membranes are moist NECK: supple, no nuchal rigidity, no adenopathy, non-tender LUNGS: Clear to auscultation. Normal chest wall mechanics HEART: no murmurs, S1 normal and S2 normal ABDOMEN: abdomen soft, non-tender, normo-active bowel sounds, no masses, no rebound or guarding. BACK: Back is symmetrical on inspection and there is no deformity, no midline tenderness, no CVA tenderness. SKIN: no rashes and no bruising UPPER EXTREMITIES: upper extremities are grossly normal. LOWER EXTREMITIES: No pitting edema. NEURO EXAM: Normal sensorium, cranial nerves II-XII grossly intact, normal speech, no gross weakness of arms, no gross weakness of legs. MEDICAL DECISION MAKING: Patient is an 85-year-old male with past medical history of hypertension previous smoker, mitral regurg who presents the ER for chest pain. Goes to bilateral shoulders. Does not go to his back. IV was established blood work was obtained. Labs show mild leukopenia 4000. No significant anemia. BMP with slightly elevated chloride. LFTs bilirubin and lipase was negative. Troponin was negative. He was given aspirin nitro. Chest pain resolved. EKG was nondiagnostic. Updated discussed with hospitalist for further observation. Discussed with Pt concerning signs and symptoms to watch out for. Pt was instructed to follow up with their PCP and discussed with the patient their option to return to the ED at anytime for persistent or worsening symptoms. The appropriate anticipatory guidance and out-patient management, including indications for return to the emergency department, were explained at length to the patient and understood. Triage Nursing notes reviewed. Limited review of prior medical records performed Vital Signs: reviewed and remarkable for no significant abnormalities Differential diagnosis: Differential diagnoses includes but is not limited to acute coronary syndrome, myocardial infarction, pericarditis, pulmonary embolus, aortic dissection, pneumonia, pneumothorax, musculoskeletal, shingles, esophageal. ER treatment provided: See below Diagnostics interpreted by me: ECG: Sinus tach at a rate of 102 Left axis Left bundle branch block QTC [address] changes in the high lateral leads No significant change in the left bundle from previous performed in July of this year Cardiac Monitoring: An order was placed for continuous cardiac monitoring. The monitor shows a rate of 98 with sinus rhythm. Laboratory studies: As stated above and show below. Imaging studies: Portable AP upright 1 view the chest shows no focal infiltrate pneumothorax. Consultation(s): Discussed with Dr. Daniel Fernandes for further evaluation Procedures: none Critical Care: None Past Med/Surg History Medical History (Updated 10/29/20 @ 16:36 by Robel Brink DO) Anemia Aortic insufficiency Aortic stenosis Moderate 07/2019 Bowel obstruction had 8 episodes and last one was 1988 BPH (benign prostatic hyperplasia) Duodenal ulcer hx GERD (gastroesophageal reflux disease) Hypertension IBS (irritable bowel syndrome) Malignant melanoma of skin of nose Mitral regurgitation Osteoarthritis Prostate cancer 04/2018--radiation Tubular adenoma of colon Surgical History History of appendectomy History of bilateral cataract extraction History of bowel resection "x6" History of colonoscopy removal of polyp History of esophagogastroduodenoscopy (EGD) History of eyelid surgery bilt History of Mohs micrographic surgery for skin cancer History of prostate biopsy x3--malignant History of removal of cyst off of face History of repair of left rotator cuff History of surgical removal of pilonidal cyst Family History (Updated 08/25/20 @ 08:13 by Heather Toribio MA) Grandfather , in his eighties No problems noted. Grandmother , not known No problems noted. Grandfather No problems noted. Grandmother No problems noted. Father , at age 84 committed suicide No problems noted. Sister , In her seventies of appendicitis No problems noted. Brother , at age 80 cancer, they did a Whipple surgery n him No problems noted. Brother , in his sixties of blood clot after surgery Stomach cancer Sister , In her sixties of a blood clot. Had breast cancer No problems noted. Sister , in her eighties cause unknown No problems noted. Son Age: 62 No problems noted. Daughter Age: 53 No problems noted. Son Age: 58 No problems noted. Son Age: 52 No problems noted. Other No family history of adverse response to anesthesia Denies family history of Ovarian cancer Prostate cancer Coronary heart disease Myocardial infarction Breast cancer Colorectal cancer Social History (Updated 08/25/20 @ 08:13 by Heather Toribio MA) Smoking Status: Never smoker Age Started Using Tobacco: 13; Age Quit Using Tobacco: 49; packs per day: 2; Years Smoked: 36; Cigarettes Per Day: 40; Number of Years Since Quit: 35; Second Hand Exposure: Yes (father smoked); Hx Alcohol Use: No Hx Substance Use: No Preferred Language: Khmer Communication Ability: Effective Visual Impairment: No Limitations Hearing Ability: Hard of Hearing 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 Beliefs That Will Affect Care: None marital status: Current Living Situation: Spouse current occupational status: retired Feels Safe at Home: Yes Childhood Exposure to Second-Hand Smoke: Yes caffeine: Yes (3 cups a day) during the past year weight has: remained stable Dental Care, Regularly: Yes Physical Activity Frequency: Does not Exercise Seatbelt Use: always Sunscreen Use: No Assistive Devices: Glasses Allergies Allergies Allergy/AdvReac Type Severity Reaction Status Date / Time penicillin G Allergy Unknown "YEARS Verified 10/29/20 13:22 AGO" - UNKNOWN Sulfa (Sulfonamide Allergy Unknown "YEARS Verified 10/29/20 13:22 Antibiotics) AGO" UNKNOWN REACTION Home Meds Home Medications Medication Instructions Recorded Confirmed ferrous sulfate 325 mg (65 mg 650 mg PO Q OTHER DAY tab 10/10/18 10/29/20 iron) tablet docusate sodium 100 mg capsule 100 mg PO QAM cap 04/09/19 10/29/20 cholecalciferol (vitamin D3) 50 4,000 units PO QAM tab 10/10/19 10/29/20 mcg (2,000 unit) tablet mecobalamin (vitamin B12) 500 mcg SL HS 02/16/20 10/29/20 famotidine 20 mg PO HS 08/13/20 10/29/20 losartan 100 mg PO QAM 10/29/20 10/29/20 Previous Rx's Medication Instructions Recorded Wheeled Walker #1 ea 06/14/20 tamsulosin 0.4 mg capsule 0.4 mg PO HS #90 cap 08/04/20 Results & Data (ED) Vital Signs Vital Signs - 24 hr 10/29/20 12:17 10/29/20 12:27 10/29/20 12:32 Temperature 36.6 C Temperature Source Temporal Artery Scan Oral Pulse Rate 79 78 Respiratory Rate 16 23 Blood Pressure 151/72 H 188/85 H Blood Pressure Mean 98 119 Pulse Oximetry 98 Oxygen Delivery Method Room Air Room Air Sepsis Recent Fever Within 48 Hours No Sepsis New/Unexplained Change in Mental Status N/A Sepsis Action Taken by Nursing No Action Required 10/29/20 12:34 10/29/20 12:40 10/29/20 13:27 Temperature Temperature Source Pulse Rate 79 82 84 Respiratory Rate 20 21 25 H Blood Pressure Blood Pressure Mean Pulse Oximetry Oxygen Delivery Method Sepsis Recent Fever Within 48 Hours Sepsis New/Unexplained Change in Mental Status Sepsis Action Taken by Nursing 10/29/20 13:30 10/29/20 13:40 10/29/20 13:50 Temperature Temperature Source Pulse Rate 82 66 71 Respiratory Rate 17 14 Blood Pressure Blood Pressure Mean Pulse Oximetry Oxygen Delivery Method Sepsis Recent Fever Within 48 Hours Sepsis New/Unexplained Change in Mental Status Sepsis Action Taken by Nursing 10/29/20 14:00 10/29/20 14:10 10/29/20 14:23 Temperature Temperature Source Pulse Rate 74 72 65 Respiratory Rate 19 18 Blood Pressure Blood Pressure Mean Pulse Oximetry Oxygen Delivery Method Sepsis Recent Fever Within 48 Hours Sepsis New/Unexplained Change in Mental Status Sepsis Action Taken by Nursing 10/29/20 14:30 10/29/20 14:40 10/29/20 14:50 Temperature Temperature Source Pulse Rate 68 64 64 Respiratory Rate 19 17 18 Blood Pressure Blood Pressure Mean Pulse Oximetry Oxygen Delivery Method Sepsis Recent Fever Within 48 Hours Sepsis New/Unexplained Change in Mental Status Sepsis Action Taken by Nursing 10/29/20 14:56 10/29/20 14:57 10/29/20 15:00 Temperature Temperature Source Pulse Rate 59 L 64 64 Respiratory Rate 17 14 15 Blood Pressure 163/73 H Blood Pressure Mean 103 Pulse Oximetry Oxygen Delivery Method Sepsis Recent Fever Within 48 Hours Sepsis New/Unexplained Change in Mental Status Sepsis Action Taken by Nursing 10/29/20 15:10 10/29/20 15:20 10/29/20 15:30 Temperature Temperature Source Pulse Rate 65 65 61 Respiratory Rate 17 20 14 Blood Pressure Blood Pressure Mean Pulse Oximetry Oxygen Delivery Method Sepsis Recent Fever Within 48 Hours Sepsis New/Unexplained Change in Mental Status Sepsis Action Taken by Nursing 10/29/20 15:40 10/29/20 15:50 10/29/20 16:00 Temperature Temperature Source Pulse Rate 64 69 64 Respiratory Rate 15 14 16 Blood Pressure Blood Pressure Mean Pulse Oximetry Oxygen Delivery Method Sepsis Recent Fever Within 48 Hours Sepsis New/Unexplained Change in Mental Status Sepsis Action Taken by Nursing 10/29/20 16:10 Temperature Temperature Source Pulse Rate 66 Respiratory Rate 22 Blood Pressure Blood Pressure Mean Pulse Oximetry Oxygen Delivery Method Sepsis Recent Fever Within 48 Hours Sepsis New/Unexplained Change in Mental Status Sepsis Action Taken by Nursing Laboratory Data Result diagrams: 10/29/20 12:32 10/29/20 12:32 Lab Results 10/29/20 10/29/20 10/29/20 Range/Units 12:32 12:32 13:15 WBC 4.19 L (4.8-10.8) K/uL RBC 4.65 L (4.7-6.1) M/uL Hgb 13.4 L (14.0-18.0) g/dL Hct 41.3 L (42-52) % MCV 88.8 (80-100) fL MCH 28.8 (25-34) pg MCHC 32.4 (32-36) g/dL RDW Std Deviation 46.9 H (36.4-46.3) fL RDW Coeff of Victor Hugo 14.3 (11.5-14.5) % Plt Count 177 (130-400) K/uL MPV 10.0 (7.4-10.4) fL Immature Gran % (Auto) 0.2 % Neut % (Auto) 72.3 % Lymph % (Auto) 13.4 % [place] % (Auto) 12.2 % Eos % (Auto) 1.7 % Baso % (Auto) 0.2 % Neut # (Auto) 3.03 (1.4-6.5) K/uL Lymph # (Auto) 0.56 L (1.2-3.4) K/uL [place] # (Auto) 0.51 (0.11-0.59) K/uL Eos # (Auto) 0.07 (0-0.5) K/uL Baso # (Auto) 0.01 (0-0.2) K/uL Immature Gran # (Auto) 0.01 (0.00-0.02) K/uL Sodium 140 (136-145) mmol/L Potassium 3.5 (3.5-5.1) mmol/L Chloride 110 H (98-107) mmol/L Carbon Dioxide 26 (21-32) mmol/L Anion Gap 4.0 (3-11) BUN 11 (7-18) mg/dl Creatinine 1.06 (0.6-1.4) mg/dl Est Cr Clr Drug Dosing 50.2 ml/min Est GFR ( Amer) 74.3 Est GFR (Non-Af Amer) 64.1 BUN/Creatinine Ratio 10.5 (10-20) Glucose 90 (70-99) mg/dl Calcium 9.1 (8.5-10.1) mg/dl Total Bilirubin 0.5 (0.2-1) mg/dl AST 15 (15-37) U/L ALT 21 (12-78) U/L Alkaline Phosphatase 106 (45-117) U/L Troponin I < 0.015 (0-0.045) ng/ml Total Protein 7.6 (6.4-8.2) gm/dl Albumin 4.4 (3.4-5.0) gm/dl Globulin 3.2 (2.5-4.0) gm/dl Albumin/Globulin Ratio 1.4 (0.9-2) Lipase 110 (73-393) U/L COVID-19 Eval Order CovFluRsv at [facility] SARS-CoV-2 (PCR) (Negative) Influenza Type A (PCR) (Neg) Influenza Type B (PCR) (Neg) RSV (RT-PCR) (Neg) 10/29/20 Range/Units 13:15 WBC (4.8-10.8) K/uL RBC (4.7-6.1) M/uL Hgb (14.0-18.0) g/dL Hct (42-52) % MCV (80-100) fL MCH (25-34) pg MCHC (32-36) g/dL RDW Std Deviation (36.4-46.3) fL RDW Coeff of Victor Hugo (11.5-14.5) % Plt Count (130-400) K/uL MPV (7.4-10.4) fL Immature Gran % (Auto) % Neut % (Auto) % Lymph % (Auto) % [place] % (Auto) % Eos % (Auto) % Baso % (Auto) % Neut # (Auto) (1.4-6.5) K/uL Lymph # (Auto) (1.2-3.4) K/uL [place] # (Auto) (0.11-0.59) K/uL Eos # (Auto) (0-0.5) K/uL Baso # (Auto) (0-0.2) K/uL Immature Gran # (Auto) (0.00-0.02) K/uL Sodium (136-145) mmol/L Potassium (3.5-5.1) mmol/L Chloride (98-107) mmol/L Carbon Dioxide (21-32) mmol/L Anion Gap (3-11) BUN (7-18) mg/dl Creatinine (0.6-1.4) mg/dl Est Cr Clr Drug Dosing ml/min Est GFR ( Amer) Est GFR (Non-Af Amer) BUN/Creatinine Ratio (10-20) Glucose (70-99) mg/dl Calcium (8.5-10.1) mg/dl Total Bilirubin (0.2-1) mg/dl AST (15-37) U/L ALT (12-78) U/L Alkaline Phosphatase (45-117) U/L Troponin I (0-0.045) ng/ml Total Protein (6.4-8.2) gm/dl Albumin (3.4-5.0) gm/dl Globulin (2.5-4.0) gm/dl Albumin/Globulin Ratio (0.9-2) Lipase (73-393) U/L COVID-19 Eval Order SARS-CoV-2 (PCR) NEGATIVE (Negative) Influenza Type A (PCR) Negative (Neg) Influenza Type B (PCR) Negative (Neg) RSV (RT-PCR) Negative (Neg) Administered Medications Nitroglycerin (Nitroglycerin Sl 0.4 Mg/Tab Tab) 0.4 mg SL PRN PRN PRN Reason: chest pain Stop: 11/28/20 12:25 Last Admin: 10/29/20 12:48 Dose: 0.4 mg Documented by: [id number] Discontinued Medications Aspirin (Aspirin Chew 324 Mg) 324 mg PO NOW STA Stop: 10/29/20 12:27 Last Admin: 10/29/20 12:48 Dose: 324 mg Documented by: [id number] Imaging Data Radiologist's Impression: Chest X-Ray 10/29/20 12:27 XR chest 1V portable HISTORY: 85 years-old Male Chest Pain acute atypical chest pain COMPARISON: Chest radiograph 08/13/2020 TECHNIQUE: Portable AP view the chest FINDINGS: Cardiac silhouette is mildly enlarged. No pneumothorax, pleural effusion, airspace consolidation or overt pulmonary edema. Degenerative changes of the shoulders and spine. IMPRESSION: No acute process. ACT 112: Negative or not required by law. The above report was generated using voice recognition software. It may contain grammatical, syntax or spelling errors. Electronically signed by: Herminio Hare M.D. 10/29/2020 12:53 PM Discharge Plan Visit Data Chief Complaint: Cardiac Assessment Stated Complaint: ELEVATED B/P PAIN IN CHEST & SHOULDERS ED Provider: Robel Brink Discharge Problem: Chest pain, HTN (hypertension), Leukopenia, High serum chloride Forms Stand Alone Forms: My [employer] Prescriptions Prescriptions: No Action ferrous sulfate [FeroSul] 325 mg (65 mg iron) tablet 650 mg PO Q OTHER DAY RF: 0 docusate sodium [Colace] 100 mg capsule 100 mg PO QAM RF: 0 cholecalciferol (vitamin D3) 50 mcg (2,000 unit) tablet 4,000 units PO QAM RF: 0 tamsulosin [Flomax] 0.4 mg capsule 0.4 mg PO HS Qty: 90 RF: 1 (DME) Wheeled Walker Misc See Rx Instructions .MEDSUPPLY Qty: 1 RF: 0 mecobalamin (vitamin B12) 1,000 mcg tablet,disintegrating 500 mcg SL HS RF: 0 famotidine 20 mg tablet 20 mg PO HS RF: 0 losartan 100 mg tablet 100 mg PO QAM RF: 0 Discharge Problem: Chest pain Qualifiers: Chest pain type: unspecified Qualified Code(s): R07.9 - Chest pain, unspecified HTN (hypertension) Qualifiers: Hypertension type: unspecified Qualified Code(s): I10 - Essential (primary) hypertension Leukopenia Qualifiers: Leukopenia type: unspecified Qualified Code(s): D72.819 - Decreased white blood cell count, unspecified
[2020-10-29 12:39] LABS: Basophils # (auto) 0.01 K/uL (0-0.2); Basophils % (auto) 0.2 %; Eosinophils # (auto) 0.07 K/uL (0-0.5); Eosinophils % (auto) 1.7 %; Hematocrit (blood only) 41.3 % (42-52); Hemoglobin 13.4 g/dL (14.0-18.0); Immature Granulocytes # (auto) 0.01 K/uL (0.00-0.02); Immature Granulocytes % (auto) 0.2 %; Lymphocytes # (auto) 0.56 K/uL (1.2-3.4); Lymphocytes % (auto) 13.4 %; Mean Corpuscular Hemoglobin 28.8 pg (25-34); Mean Corpuscular Hgb Conc 32.4 g/dL (32-36); Mean Corpuscular Volume 88.8 fL (80-100); Monocytes # (auto) 0.51 K/uL (0.11-0.59); Monocytes % (auto) 12.2 %; Neutrophils # (auto) 3.03 K/uL (1.4-6.5); Neutrophils % (auto) 72.3 %; Platelet Count 177 K/uL (130-400); RDW Coefficient of Variation 14.3 % (11.5-14.5); RDW Standard Deviation 46.9 fL (36.4-46.3); Red Blood Count 4.65 M/uL (4.7-6.1); White Blood Count 4.19 K/uL (4.8-10.8)
--- NOTE | 2020-10-29 12:54 | XRay Report ---
XR chest 1V portable HISTORY: 85 years-old Male Chest Pain acute atypical chest pain COMPARISON: Chest radiograph 08/13/2020 TECHNIQUE: Portable AP view the chest FINDINGS: Cardiac silhouette is mildly enlarged. No pneumothorax, pleural effusion, airspace consolidation or o vert pulmonary edema. Degenerative changes of the shoulders and spine. IMPRESSION: No acute process. ACT 112: Negative or not required by law. The above report was generated using voice recognition software. It may contain grammatical, syntax o r spelling errors. Electronically signed by: Herminio Hare M.D. 10/29/2020 12:53 PM
[2020-10-29 12:57] LABS: Alanine Aminotransferase 21 U/L (12-78); Albumin Level 4.4 gm/dl (3.4-5.0); Aspartate Aminotransferase 15 U/L (15-37); BUN Creatinine Ratio 10.5 (10-20); Blood Urea Nitrogen 11 mg/dl (7-18); Calcium 9.1 mg/dl (8.5-10.1); Carbon Dioxide 26 mmol/L (21-32); Chloride 110 mmol/L (98-107); Creatinine Clr Calc Pharmacy 50.2 ml/min; Est GFR (African American) 74.3; Est GFR (Non-African American) 64.1; Glucose 90 mg/dl (70-99); Lipase 110 U/L (73-393); Potassium 3.5 mmol/L (3.5-5.1); Sodium 140 mmol/L (136-145)
[2020-10-29 13:01] LABS: Albumin Globulin Ratio 1.4 (0.9-2); Alkaline Phosphatase 106 U/L (45-117); Bilirubin,Total 0.5 mg/dl (0.2-1); Globulin 3.2 gm/dl (2.5-4.0); Total Protein 7.6 gm/dl (6.4-8.2); Troponin I < 0.015 ng/ml (0-0.045)
--- NOTE | 2020-10-29 13:48 | History & Physical Report ---
Date of Service October 29, 2020 Assessment & Plan (1) Atypical chest pain: Serially trend troponins Nitroglycerin appears to be helpful therefore to treat his BP will start nitro 2% 1 inch paste Consult cardiology in a.m. to assess need for stress testing ?alternative etiologies including GI and MSK from shoulder pains appear to also be possibilities but need to rule out ACS initially (2) Hypertensive urgency: BP 208/84 in ER Known Hx white coat hypertension and increased stress/grief with his dying 2 weeks ago Multiple recent changes to his BP meds (amlodipine caused leg swelling and losartan recently increased 50 -> 100mg daily Continue losartan 100mg PO daily Start nitro paste 2% 1 inch while admitted (consider [facility]MN on discharge) (3) Aortic stenosis: Moderate on Echo 08/2020, no significant change to last year (4) Iron malabsorption: Continue ferrous sulphate 650mg PO Q2D (5) Gastritis: Continue famotidine 20mg PO HS (6) BPH (benign prostatic hyperplasia): Continue tamsulosin 0.4mg HS Admission and Anticipated Discharge Date Admission Date: October 29, 2020 History of Present Illness Chief Complaint: Chest pain Primary Care Provider: Adithya Allen MD Darcie Hill is an 85-year-old male with moderate aortic stenosis who presents to the ER with chest pain. He finds it difficult to explain his pain but uses words of heaviness/tightness. He reports it coming on gradually when he woke up this morning around 3:30am. He occasionally gets shoulder pains related to arthritis but never chest pains. Today he had both but unclear if they were related. On one occasion twisting to the left may have made the chest pain wo rse. Chest pain is substernal, severity 10/10 at worst, currently 3/10. Improved with nitroglycerin given in ER. No worse on walking around the house or with his breakfast this morning. He did consider reflux becing the cause and he took Mylanta but unclear whether this made a difference. His grandson was visiting from [place]. At around 11am the patient was having a throbbing headache in addition to a high blood pressure therefore decided to come to the ER. He denies any fevers, chills, cough, URI symptoms. No palpitations, claudication, presyncope or syncope. He ate a bowl of His blood pressure has been elevated recently which has been changing his medication with his PCP. His stress has been very high recently with the of his 2 weeks ago. Recently was put on amlodipine but this caused foot swelling so was discontinued in favor of increasing his losartan (50 ->100mg, taken increased dose just for the last few days). In the ER BP was as high as 208/84, initial troponin negative, EKG showed no new ischemic changes to prior. He was referred to medicine for admission and ongoing management of chest pain rule out MA. Allergies Allergy/AdvReac Type Severity Reaction Status Date / Time penicillin G Allergy Unknown "YEARS Verified 10/29/20 13:22 AGO" - UNKNOWN Sulfa (Sulfonamide Allergy Unknown "YEARS Verified 10/29/20 13:22 Antibiotics) AGO" UNKNOWN REACTION Home Medications Medication Instructions Recorded Confirmed Type ferrous sulfate 325 mg (65 mg 650 mg PO Q OTHER DAY tab 10/10/18 10/29/20 History iron) tablet docusate sodium 100 mg capsule 100 mg PO QAM cap 04/09/19 10/29/20 History cholecalciferol (vitamin D3) 50 4,000 units PO QAM tab 10/10/19 10/29/20 History mcg (2,000 unit) tablet mecobalamin (vitamin B12) 500 mcg SL HS 02/16/20 10/29/20 History Wheeled Walker #1 ea 06/14/20 09/13/20 Rx tamsulosin 0.4 mg capsule 0.4 mg PO HS #90 cap 08/04/20 10/29/20 Rx famotidine 20 mg PO HS 08/13/20 10/29/20 History losartan 100 mg PO QAM 10/29/20 10/29/20 History Past Med/Surg History Medical History Anemia Aortic insufficiency Aortic stenosis Moderate 07/2019 Bowel obstruction had 8 episodes and last one was 1988 BPH (benign prostatic hyperplasia) Duodenal ulcer hx GERD (gastroesophageal reflux disease) Hypertension IBS (irritable bowel syndrome) Malignant melanoma of skin of nose Mitral regurgitation Osteoarthritis Prostate cancer 04/2018--radiation Tubular adenoma of colon Surgical History History of appendectomy History of bilateral cataract extraction History of bowel resection "x6" History of colonoscopy removal of polyp History of esophagogastroduodenoscopy (EGD) History of eyelid surgery bilt History of Mohs micrographic surgery for skin cancer History of prostate biopsy x3--malignant History of removal of cyst off of face History of repair of left rotator cuff History of surgical removal of pilonidal cyst Family History Grandfather , in his eighties No problems noted. Grandmother , not known No problems noted. Grandfather No problems noted. Grandmother No problems noted. Father , at age 84 committed suicide No problems noted. Sister , In her seventies of appendicitis No problems noted. Brother , at age 80 cancer, they did a Whipple surgery n him No problems noted. Brother , in his sixties of blood clot after surgery Stomach cancer Sister , In her sixties of a blood clot. Had breast cancer No problems noted. Sister , in her eighties cause unknown No problems noted. Son Age: 62 No problems noted. Daughter Age: 53 No problems noted. Son Age: 58 No problems noted. Son Age: 52 No problems noted. Other No family history of adverse response to anesthesia Denies family history of Ovarian cancer Prostate cancer Coronary heart disease Myocardial infarction Breast cancer Colorectal cancer Social History Smoking Status: Former smoker Age Started Using Tobacco: 13; Age Quit Using Tobacco: 49; packs per day: 2; Years Smoked: 36; Cigarettes Per Day: 40; Number of Years Since Quit: 35; Second Hand Exposure: Yes (father smoked); Hx Alcohol Use: No Hx Substance Use: No Preferred Language: Zimbabwean Communication Ability: Effective Visual Impairment: No Limitations Hearing Ability: Hard of Hearing Weight Recorder Required: No Beliefs That Will Affect Care: None marital status: Current Living Situation: Alone Current Living Situation Comment: recently current occupational status: retired Other Information That Helps Us Care for You: No Feels Safe at Home: Yes Safety Concerns: Feels Safe At This Time Childhood Exposure to Second-Hand Smoke: Yes caffeine: Yes (3 cups a day) during the past year weight has: remained stable Dental Care, Regularly: Yes Physical Activity Frequency: Does not Exercise Seatbelt Use: always Sunscreen Use: No Assistive Devices: Glasses Review of Systems Review of Systems: All systems reviewed & are unremarkable except as noted in HPI & below Physical Exam Constitutional: WD/WN, vitals as above Eyes: + anicteric sclerae; normal pupil size ENMT: external ear and nose normal, oropharynx normal Neck: trachea midline Respiratory: normal respiratory effort, lungs clear to auscultation Cardiovascular: Rate/Rhythm: regular rate and regular rhythm Heart Sounds: + murmur (2/6 systolic LLSB) Vessels: no JVD Extremities: normal capillary refill; no calf tenderness and no pedal edema Gastrointestinal (Abdomen): normal bowel sounds, soft, nontender, no hepatosplenomegaly Musculoskeletal: no cyanosis or clubbing, extremities motor strength 5/5 Skin: no rashes, warm and dry Neurologic: moves all extremities and awake; not confused Psychiatric: A+Ox3, euthymic affect Results & Data Results & Data ([facility]) Vital Signs (Past 12 Hours) Vital Signs Temp Pulse Resp BP Pulse Ox 10/29/20 13:30 82 17 10/29/20 13:27 84 25 H 10/29/20 12:40 82 21 10/29/20 12:34 79 20 10/29/20 12:32 78 23 188/85 H 10/29/20 12:17 36.6 C 79 16 151/72 H 98 Diagnostic Findings XR chest 1V portable IMPRESSION: No acute process. Medications Administered ER medications given: Aspirin 324 mg p.o. Nitroglycerin 0.4 mg SL ECG Indication: chest pain Rate (beats per minute): 102 Rhythm: sinus tachycardia Findings: + LBBB and + left axis deviation; no acute ischemic change Comparison ECG Date: from (August 13, 2020) Change: the following changes noted (PVCs no longer present) PG Care Time/CCT Total # of Minutes Spent Total Time Spent with Patient: Total time spent is greater than 50% in coordination of care (as documented) at patient's floor/unit and/or counseling patient: Coding Level of Care Code 53573 OBS Care - Level 3 Diagnoses Atypical chest pain R07.89 Hypertensive urgency I16.0 Aortic stenosis I35.0 Iron malabsorption K90.9 Gastritis K29.70 BPH (benign prostatic hyperplasia) N40.0
[2020-10-29 14:27] LABS: Influenza A virus by PCR Negative (Neg); Influenza B virus by PCR Negative (Neg); RSV by PCR Negative (Neg); SARS CoV2 RNA(COVID-19) InHosp NEGATIVE (Negative)
--- NOTE | 2020-10-29 16:18 | Electrocardiogram Report ---
Test Reason : Blood Pressure : / mmHG Vent. Rate : 102 BPM Atrial Rate : 102 BPM P-R Int : 194 ms QRS Dur : 130 ms QT Int : 352 ms P-R-T Axes : 080 -61 091 degrees QTc Int : 458 ms Poor data quality, interpretation may be adversely affected Sinus tachycardia Left axis deviation Left ventricular hypertrophy with QRS widening and repolarization abnormality Abnormal ECG When compared with ECG of 13-AUG-2020 12:05, Premature ventricular complexes are no longer Present [place] interval has decreased Minimal criteria for Septal infarct are no longer Present Confirmed by Ru Vera ([id number]) on 10/29/2020 4:17:48 PM Referred By: Confirmed By:Ru Vera
[2020-10-29] MEDS: NITROGLYCERIN 2% OINTMENT 30GM TUBE EXT SCH (17:22)
[2020-10-29] MEDS ORDERED: hydrALAZINE HCL 20 MG/ML VIAL IV PRN (17:31)
[2020-10-29] MEDS: FAMOTIDINE 20 MG TAB PO SCH (21:10)
[2020-10-29] MEDS: CYANOCOBALAMIN 500 MCG TABLET (VITAMIN B-12) PO SCH (21:10)
[2020-10-29] MEDS: TAMSULOSIN HCL 0.4 MG CAP PO SCH (21:10)
[2020-10-29] MEDS: MELATONIN 3 MG TAB PO PRN (22:42)
[2020-10-30] MEDS: NITROGLYCERIN 2% OINTMENT 30GM TUBE EXT SCH ×4 (00:09→17:03)
[2020-10-30] MEDS: ACETAMINOPHEN 325 MG TAB PO PRN (06:09)
[2020-10-30 07:30] LABS: BUN Creatinine Ratio 12.6 (10-20); Blood Urea Nitrogen 13 mg/dl (7-18); Calcium 8.4 mg/dl (8.5-10.1); Carbon Dioxide 26 mmol/L (21-32); Chloride 113 mmol/L (98-107); Creatinine Clr Calc Pharmacy 52.2 ml/min; Est GFR (African American) 77.9; Est GFR (Non-African American) 67.2; Glucose 84 mg/dl (70-99); Sodium 142 mmol/L (136-145)
[2020-10-30 07:35] LABS: Troponin I < 0.015 ng/ml (0-0.045)
[2020-10-30] MEDS: DOCUSATE SODIUM 100 MG CAP PO SCH (07:53)
[2020-10-30] MEDS: CHOLECALCIFEROL 1,000 UNITS 25 MCG TAB PO SCH (07:53)
[2020-10-30] MEDS ORDERED: LOSARTAN POTASSIUM 50 MG TAB PO SCH (09:00)
[2020-10-30] MEDS ORDERED: KETOROLAC TROMETHAMINE 15 MG/ML VIAL IV ONE (10:51)
[2020-10-30] MEDS ORDERED: DICLOFENAC SOD 1% GEL 100 GM TUBE EXT STA (10:51)
--- NOTE | 2020-10-30 13:04 | Cardiology Consultation ---
Date of Consultation October 30, 2020 Assessment & Plan (1) Chest pain: (2) Hypertensive urgency: (3) Moderate aortic stenosis: (4) Bereavement: No evidence of acute coronary event by enzymes, repeat ECG for today ordered. Symptom complex is difficult to untangle, although he has longstanding shoulder arthralgias he had separate additional symptoms which may have been musculoskeletal (recent golfing) but are equally likely to have been supply/demand mediated angina due to acute hypertension occurring in a patient with moderate aortic stenosis. Would favor continued observation while further managing his blood pressure. Would discontinue Nitropaste, since this is not an acute coronary event. Although amlodipine was stopped due to ankle edema, he was on 5 mg daily with good blood pressure effect, would favor restarting amlodipine at just 2.5 mg daily as additional antihypertensive while monitoring for any recurrent edema (much less likely at this low dose). He has some degree of insomnia and clearly is working through bereavement issues which increase his adrenergic state and likely blood pressure, would favor a dose of clonidine (0.1 mg) at bedtime for additional control of labile hypertension. Case discussed with Dr. Smith. Will follow along with you and reevaluate the patient tomorrow. History of Present Illness Reason for Consultation: Chest pain Requesting Physician: Daniel Fernandes MD Attending Physician: Lonnie Smith MD History of Present Illness 85-year-old man with moderate aortic stenosis, hypertension, and bereavement (lost his 2 weeks ago) who was admitted 10/29/2020 after an episode of prolonged chest discomfort. He has chronic bilateral shoulder arthralgias which are fairly constant, yesterday morning he awoke with a chest "tightness" bilateral anterior region. This did not change with activity but persisted through much of the day, when he later developed a headache he became concerned and presented to the ER where he was found to be hypertensive (BP up to 208/84 mmHg last evening). He denies dyspnea, palpitations, presyncope, or syncope. He did go golfing for the first time in a long time earlier this week and wondered about a musculoskeletal component to his pain ECG showed sinus tachycardia 102 bpm, LVH with QRS widening and repolarization abnormality. Compared with an ECG from July 2020, rate was faster but no other significant change. No ECG from today. Troponin negative x3. He is unsure when his chest discomfort resolved, but it has not recurred today. He notes that the topical nitroglycerin seems to be beneficial, but not in a dramatic way. He had no complaints at the time of my evaluation this morning. Allergies Allergy/AdvReac Type Severity Reaction Status Date / Time penicillin G Allergy Unknown "YEARS Verified 10/29/20 13:22 AGO" - UNKNOWN Sulfa (Sulfonamide Allergy Unknown "YEARS Verified 10/29/20 13:22 Antibiotics) AGO" UNKNOWN REACTION Home Medications Medication Instructions Recorded Confirmed Type ferrous sulfate 325 mg (65 mg 650 mg PO Q OTHER DAY tab 10/10/18 10/29/20 History iron) tablet docusate sodium 100 mg capsule 100 mg PO QAM cap 04/09/19 10/29/20 History cholecalciferol (vitamin D3) 50 4,000 units PO QAM tab 10/10/19 10/29/20 History mcg (2,000 unit) tablet mecobalamin (vitamin B12) 500 mcg SL HS 02/16/20 10/29/20 History Wheeled Walker #1 ea 06/14/20 09/13/20 Rx tamsulosin 0.4 mg capsule 0.4 mg PO HS #90 cap 08/04/20 10/29/20 Rx famotidine 20 mg PO HS 08/13/20 10/29/20 History losartan 100 mg PO QAM 10/29/20 10/29/20 History Patient History Medical History Anemia Aortic insufficiency Aortic stenosis Moderate 07/2019 Bowel obstruction had 8 episodes and last one was 1988 BPH (benign prostatic hyperplasia) Duodenal ulcer hx GERD (gastroesophageal reflux disease) Hypertension IBS (irritable bowel syndrome) Malignant melanoma of skin of nose Mitral regurgitation Osteoarthritis Prostate cancer 04/2018--radiation Tubular adenoma of colon Surgical History History of appendectomy History of bilateral cataract extraction History of bowel resection "x6" History of colonoscopy removal of polyp History of esophagogastroduodenoscopy (EGD) History of eyelid surgery bilt History of Mohs micrographic surgery for skin cancer History of prostate biopsy x3--malignant History of removal of cyst off of face History of repair of left rotator cuff History of surgical removal of pilonidal cyst Family History Brother, at age 80 cancer, they did a Whipple surgery n him Brother, in his sixties of blood clot after surgery Father, at age 84 committed suicide Grandfather Grandfather, in his eighties Grandmother Grandmother, not known Sister, in her eighties cause unknown Sister, In her seventies of appendicitis Sister, In her sixties of a blood clot. Had breast cancer Stomach cancer Brother No family history of adverse response to anesthesia Denies family history of Ovarian cancer Prostate cancer Coronary heart disease Myocardial infarction Breast cancer Colorectal cancer Social History Smoking Status: Former smoker Age Started Using Tobacco: 13; Age Quit Using Tobacco: 49; packs per day: 2; Years Smoked: 36; Cigarettes Per Day: 40; Number of Years Since Quit: 35; Second Hand Exposure: Yes (father smoked); Hx Alcohol Use: No Hx Substance Use: No Preferred Language: Frisian Communication Ability: Effective Visual Impairment: No Limitations Hearing Ability: Hard of Hearing Behavioral Therapy Coordinator Required: No Beliefs That Will Affect Care: None marital status: Current Living Situation: Alone Current Living Situation Comment: recently current occupational status: retired Other Information That Helps Us Care for You: No Feels Safe at Home: Yes Safety Concerns: Feels Safe At This Time Childhood Exposure to Second-Hand Smoke: Yes caffeine: Yes (3 cups a day) during the past year weight has: remained stable Dental Care, Regularly: Yes Physical Activity Frequency: Does not Exercise Seatbelt Use: always Sunscreen Use: No Assistive Devices: None Physical Exam Physical Exam: Elderly white male in no distress. BP 170/79 mmHg. Pulse 80 bpm and regular without ectopy Skin: no ecchymoses or generalized lesions. HEENT: unremarkable. Neck: Jugular venous pulse at the clavicle at 90 degrees, bilateral transmitted murmur to the carotids. Lungs: clear. Cardiac: regular rhythm, normal S1, diminished but audible aortic component S2, 3/6 crescendo decrescendo systolic ejection murmur right upper sternal border rating to the carotids and left sternal border, as well as to the apex. No diastolic murmur or gallop. Abdomen: benign. Extremities: no edema, pulses intact. Neurologic: normal affect and conversation, nonfocal. Results & Data ([facility]) Vital Signs (Past 12 Hours) Vital Signs Temp Pulse Pulse Resp BP BP Pulse Ox 10/30/20 10:59 97.7 F 80 18 170/79 H 96 10/30/20 07:42 98.1 F 67 19 153/73 H 95 10/30/20 07:11 64 10/30/20 04:15 98.1 F 74 17 139/70 95 Laboratory Results Hemoglobin 13.4 with white count 4.19 and normal platelet count. Normal electrolytes, creatinine 1.02. Troponin negative. Hemoglobin A1c 5.6 last year. Diagnostic Findings ECGs as noted in HPI. Telemetry with sinus rhythm 60 to 90 bpm. Chest x-ray showed no acute process. Carotid Doppler August 2020 showed no significant stenosis. Echocardiogram August 2020 showed EF 50 to 55% with mild LVH, moderate aortic stenosis with mild aortic regurgitation, mild mitral regurgitation. Compared with July 2019 study, no significant change. PG Care Time/CCT Total # of Minutes Spent Total Time Spent with Patient: Total time spent is greater than 50% in c oordination of care (as documented) at patient's floor/unit and/or counseling patient: Coding Level of Care Code 76261 Initial Inpt Care Lvl 3 Diagnoses Chest pain R07.9 Chest pain type: unspecified Hypertensive urgency I16.0 Moderate aortic stenosis I35.0 Bereavement Z63.4 (1) Chest pain Chest pain type: unspecified Qualified Code(s): R07.9 - Chest pain, unspecified
--- NOTE | 2020-10-30 16:14 | Hospitalist Progress Note ---
Date of Service October 30, 2020 Assessment & Plan (1) Hypertensive urgency: BP 208/84 in ER. Known Hx white coat hypertension and increased stress/grief with his dying 2 weeks ago. - Continue losartan 100mg PO daily - Restart home amlodipine, but at 2.5 mg PO daily - Start clonidine 0.1 mg PO HS per cardiology. (2) Atypical chest pain: Serial troponins were negative. - Most likely MSK pain as he reports bilateral shoulder pain which is tender to palpation. - Trialling Voltaren gel (3) Aortic stenosis: Moderate on echo in 08/2020, no significant change to last year. - No inpatient needs (4) Iron malabsorption: - Continue ferrous sulphate 650mg PO Q2D (5) Gastritis: - Continue famotidine 20mg PO HS (6) BPH (benign prostatic hyperplasia): - Continue tamsulosin 0.4 mg PO HS (7) DVT prophylaxis: SCDs - Low DVT risk per admission calculator Admission and Anticipated Discharge Date Admission Date: October 29, 2020 Subjective Feeling better today. Some headache and continued shoulder pain. Reports no fevers/chills, chest pain, shortness of breath, abdominal pain, nausea, or vomiting. Physical Exam Constitutional: WD/WN, vitals as above Eyes: EOM intact bilaterally; no conjunctival abnormality ENMT: external ear and nose normal, oropharynx normal Neck: trachea midline, no thyromegaly normal visual inspection Respiratory: normal respiratory effort, lungs clear to auscultation no respiratory distress Cardiovascular: RRR, no murmur, no edema Gastrointestinal (Abdomen): Inspection/Auscultation: abdomen normal to inspection; abdomen not distended Musculoskeletal: no cyanosis or clubbing, extremities motor strength 5/5 Skin: no rashes, warm and dry Neurologic: moves all extremities and awake Psychiatric: Orientation: alert, oriented to person and cooperative Results & Data Results & Data ([facility]) Vital Signs (Past 12 Hours) Vital Signs Temp Pulse Pulse Resp BP BP Pulse Ox 10/30/20 15:26 37 C 65 18 151/76 H 96 10/30/20 15:25 62 10/30/20 10:59 36.5 C 80 18 170/79 H 96 10/30/20 07:42 36.7 C 67 19 153/73 H 95 10/30/20 07:11 64 10/30/20 04:15 36.7 C 74 17 139/70 95 PG Care Time/CCT Total # of Minutes Spent Total Time Spent with Patient: Total time spent is greater than 50% in coord ination of care (as documented) at patient's floor/unit and/or counseling patient: Coding Level of Care Code 45806 Subseq Obs Care Lvl 2 Diagnoses Hypertensive urgency I16.0 Atypical chest pain R07.89 Aortic stenosis I35.0 Iron malabsorption K90.9 Gastritis K29.70 BPH (benign prostatic hyperplasia) N40.0 DVT prophylaxis Z29.9
[2020-10-30] MEDS: CYANOCOBALAMIN 500 MCG TABLET (VITAMIN B-12) PO SCH (20:09)
[2020-10-30] MEDS: TAMSULOSIN HCL 0.4 MG CAP PO SCH (20:09)
[2020-10-30] MEDS: MELATONIN 3 MG TAB PO PRN (20:45)
[2020-10-30] MEDS: FAMOTIDINE 20 MG TAB PO SCH (20:45)
[2020-10-30] MEDS ORDERED: cloNIDine HCL 0.1 MG TAB PO SCH (21:00)
[2020-10-30] MEDS ORDERED: amLODIPine BESYLATE 5 MG TAB PO SCH (21:00)
[2020-10-31] MEDS: ACETAMINOPHEN 325 MG TAB PO PRN (06:26)
[2020-10-31] MEDS: DOCUSATE SODIUM 100 MG CAP PO SCH (07:57)
[2020-10-31] MEDS: CHOLECALCIFEROL 1,000 UNITS 25 MCG TAB PO SCH (07:57)
[2020-10-31] MEDS ORDERED: FERROUS SULFATE 325 MG TAB PO SCH (09:00)
[2020-10-31] MEDS ORDERED: LOSARTAN POTASSIUM 50 MG TAB PO SCH (09:00)
--- NOTE | 2020-10-31 11:03 | Cardiology Progress Note ---
Date of Service October 31, 2020 Assessment & Plan (1) Chest pain: (2) Hypertensive urgency: (3) Moderate aortic stenosis: (4) Bereavement: No evidence of acute coronary event by enzymes or serial ECGs. Symptom complex remains equivocal, he did have bilateral shoulder arthralgias again this morning but there was no change during brisk walking and no chest pain, weighing against the shoulder pain being an anginal equivalent. Blood pressure is somewhat better with amlodipine restarted at lower dose and bedtime clonidine. In the absence of evidence for acute coronary syndrome or ongoing angina, as well as given his better blood pressure control, reasonable for him to be discharged today with further evaluation as an outpatient. I will discuss with his primary trademark attorney, Dr. Estrada, most likely he will schedule a stress study to further evaluate hemodynamics during exercise and exclude myocardial ischemia in order to allow the patient to resume his full exercise program. Recommend continuing amlodipine in the morning, clonidine in the evening upon discharge. Would also give patient prescription for PRN clonidine that he could take once or twice daily if he notes a markedly elevated blood pressure at home (systolic blood pressure greater than 160 mmHg). The patient checks his blood pressure twice a day. The patient also should have sublingual nitroglycerin available for any recurrent chest discomfort. We did discuss bereavement issues at some length again today. He is struggling somewhat but has a good attitude going forward. Admission and Anticipated Discharge Date Admission Date: October 29, 2020 Subjective Uneventful night, mild insomnia. Telemetry benign, blood pressure improving. No recurrent chest discomfort, but he did note bilateral shoulder achiness upon awakening today. He walked 8 loops around the hallways and noted only shoulder discomfort without chest discomfort, no change from his rest symptoms of shoulder discomfort. He denied any dyspnea, palpitations, lightheadedness, or other complaints. He was comfortable at the time of my evaluation. Physical Exam Physical Exam: No distress. BP 158/73 mmHg. Pulse 70 bpm and regular without ectopy Skin: no ecchymoses or generalized lesions. HEENT: unremarkable. Neck: Jugular venous pulse at the clavicle at 90 degrees, bilateral transmitted murmur to the carotids. Lungs: clear. Cardiac: regular rhythm, normal S1, diminished but audible aortic component S2, 3/6 crescendo decrescendo systolic ejection murmur right upper sternal border rating to the carotids and left sternal border, as well as to the apex. No diastolic murmur or gallop. Abdomen: benign. Extremities: no edema, pulses intact. Shoulder discomfort did not increase when pushing against resistance or with range of motion. Neurologic: normal affect and conversation, nonfocal. Results & Data ([facility]) Vital Signs (Past 12 Hours) Vital Signs Temp Pulse Pulse Resp BP BP Pulse Ox 10/31/20 08:16 97.7 F 69 18 158/73 H 95 10/31/20 06:59 69 10/31/20 04:00 98.1 F 72 18 128/64 95 10/31/20 00:34 65 Diagnostic Findings ECG yesterday showed sinus rhythm at 75 bpm, LVH with QRS widening and minor repolarization abnormalities. Compared with 10/29/2020 ECG, nonspecific T wave abnormality replaced inverted T waves in the lateral leads. PG Care Time/CCT Total # of Minutes Spent Total Time Spent with Patient: Total time spent is greater than 50% in coordination of care (as documented) at patient's floor/unit and/or counseling patient: Coding Level of Care Code 79438 Subseq Hosp Care Lvl 3 Diagnoses Chest pain R07.9 Chest pain type: unspecified Hypertensive urgency I16.0 Moderate aortic stenosis I35.0 Bereavement Z63.4 (1) Chest pain Chest pain type: unspecified Qualified Code(s): R07.9 - Chest pain, unspecified
[2020-10-31 12:09] VITALS: PULSE 65; TEMP 98.2; O2SAT 98
[2020-10-31 13:12] VITALS: BP 128/64
--- NOTE | 2020-10-31 13:28 | Electrocardiogram Report ---
Test Reason : Blood Pressure : / mmHG Vent. Rate : 075 BPM Atrial Rate : 075 BPM P-R Int : 196 ms QRS Dur : 130 ms QT Int : 386 ms P-R-T Axes : 039 -55 049 degrees QTc Int : 431 ms Normal sinus rhythm Left axis deviation Left ventricular hypertrophy with QRS widening Abnormal ECG When compared with ECG of 29-OCT-2020 12:24, No significant change Confirmed by John Gomez [id number] on 10/31/2020 1:28:21 PM Referred By: REFERRED SELF Confirmed By:John Gomez
--- NOTE | 2020-10-31 17:10 | Discharge Summary ---
Date of Service October 31, 2020 Admission HPI Per Admitting Provider Darcie Hill is an 85-year-old male with moderate aortic stenosis who presents to the ER with chest pain. He finds it difficult to explain his pain but uses words of heaviness/tightness. He reports it coming on gradually when he woke up this morning around 3:30am. He occasionally gets shoulder pains related to arthritis but never chest pains. Today he had both but unclear if they were related. On one occasion twisting to the left may have made the chest pain worse. Chest pain is substernal, severity 10/10 at worst, currently 3/10. Improved with nitroglycerin given in ER. No worse on walking around the house or with his breakfast this morning. He did consider reflux becing the cause and he took Mylanta but unclear whether this made a difference. His grandson was visiting from [place], [place]. At around 11am the patient was having a throbbing headache in addition to a high blood pressure therefore decided to come to the ER. He denies any fevers, chills, cough, URI symptoms. No palpitations, claudication, presyncope or syncope. He ate a bowl of His blood pressure has been elevated recently which has been changing his medication with his PCP. His stress has been very high recently with the of his 2 weeks ago. Recently was put on amlodipine but this caused foot swelling so was discontinued in favor of increasing his losartan (50 ->100mg, taken increased dose just for the last few days). In the ER BP was as high as 208/84, initial troponin negative, EKG showed no new ischemic changes to prior. He was referred to medicine for admission and ongoing management of chest pain rule out GA. Principal Diagnosis MSK pain Hypertension Discharge Exam Constitutional WD/WN, vitals as above Eyes EOM intact bilaterally; no conjunctival abnormality ENMT external ear and nose normal, oropharynx normal Neck trachea midline, no thyromegaly normal visual inspection Respiratory normal respiratory effort, lungs clear to auscultation no respiratory distress Cardiovascular RRR, no murmur, no edema Gastrointestinal (Abdomen) Inspection/Auscultation: abdomen normal to inspection; abdomen not distended Musculoskeletal no cyanosis or clubbing, extremities motor strength 5/5 Skin no rashes, warm and dry Neurologic moves all extremities and awake Psychiatric Orientation: alert, oriented to person and cooperative Discharge Data Allergies Allergy/AdvReac Type Severity Reaction Status Date / Time penicillin G Allergy Unknown "YEARS Verified 10/29/20 13:22 AGO" - UNKNOWN Sulfa (Sulfonamide Allergy Unknown "YEARS Verified 10/29/20 13:22 Antibiotics) AGO" UNKNOWN REACTION Consultations 10/29/20 13:19 ED Decision to Admit Stat 10/30/20 07:13 Consult Cardiology Routine Hospital Course (1) Hypertensive urgency: BP 208/84 in ER. Known Hx white coat hypertension and increased stress/grief with his dying 2 weeks ago. - Continue losartan 100mg PO daily - Restart home amlodipine, but at 2.5 mg PO daily (which Dr. Gomez felt would reduce/minimize swelling) - Started clonidine 0.1 mg PO HS per cardiology as well as clonidine 0.1 mg PO daily PRN for SBP > 190 (per cardiology). (2) Atypical chest pain: Serial troponins were negative. - Most likely MSK pain as he reports bilateral shoulder pain which is tender to palpation. - Voltaren gel improved his pain. - Per cardiology, will consider outpatient stress test. (3) Aortic stenosis: Moderate on echo in 08/2020, no significant change to last year. - No inpatient needs (4) Iron malabsorption: - Continue ferrous sulphate 650mg PO Q2D (5) Gastritis: - Continue famotidine 20mg PO HS (6) BPH (benign prostatic hyperplasia): - Continue tamsulosin 0.4 mg PO HS (7) DVT prophylaxis: SCDs - Low DVT risk per admission calculator Total Time Total Time Spent Total Time Spent (In Minutes): 35 Discharge Plan Discharge Items Patient Disposition: Home - Self-Care Reason For Visit: CHEST PAIN R/O GA Discharge Diagnosis: High blood pressure Activity: Resume your previous activity Non-emergency contact: Primary Care Provider and Patternmaker Sample Call non-emergency contact if: your symptoms worsen Follow-up/Referrals: Wilner Allen MD [Primary Care Provider] - Carl Estrada Jr, MD, FAC [Physician] - Diet: Heart Healthy Addtl Attending Provider Instructions: Mr. Hill, You were admitted to the hospital with high blood pressure and some shoulder pain that is likely musculoskeletal in nature. Dr. Gomez saw you and had some recommendations on how to help keep your blood pressure in better line. Dr. Gomez recommended adding back a small dose of amlodipine which will be less likely to cause swelling. 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 He also recommended an "as needed" dose during the day if your blood pressure goes above 190. Please follow up with Dr. Estrada in the next week or two to check on your blood pressure and make any refinements possible. Pending Studies at Discharge: No Stand-Alone Forms: My [facility], Smoking Cessation Medications and DC Order Prescriptions: New amlodipine [Norvasc] 5 mg Tablet 2.5 mg PO HS Qty: 30 RF: 0 clonidine HCl 0.1 mg Tablet 0.1 mg PO HS Qty: 30 RF: 0 nitroglycerin [Nitrostat] 0.4 mg Tablet, Sublingual 0.4 mg sublingual Q5M PRN (Reason: chest pain) Qty: 30 RF: 0 clonidine HCl 0.1 mg tablet 0.1 mg PO DAILY PRN (Reason: Blood pressure > 190) Qty: 30 RF: 0 Continued ferrous sulfate [FeroSul] 325 mg (65 mg iron) tablet 650 mg PO Q OTHER DAY RF: 0 docusate sodium [Colace] 100 mg capsule 100 mg PO QAM RF: 0 cholecalciferol (vitamin D3) 50 mcg (2,000 unit) tablet 4,000 units PO QAM RF: 0 tamsulosin [Flomax] 0.4 mg capsule 0.4 mg PO HS Qty: 90 RF: 1 (DME) Wheeled Walker Misc See Rx Instructions .MEDSUPPLY Qty: 1 RF: 0 mecobalamin (vitamin B12) 1,000 mcg tablet,disintegrating 500 mcg SL HS RF: 0 famotidine 20 mg tablet 20 mg PO HS RF: 0 losartan 100 mg tablet 100 mg PO QAM RF: 0 Discharge Orders: Discharge Order (Routine); Ordered 10/31/20 Ordered By: Lonnie Smith Admission Data Admit Date/Time: 10/29/20 14:12 Attending Provider: Lonnie Smith Admit Provider: Daniel Fernandes Primary Care Provider: Wilner Allen Other Providers: John Gomez ; Lonnie Smith Other Interventions: Discharge Summary Assessment (RN) Last Done: 10/31/20 13:11 Coding Level of Care Code 65529 OBS Care - Discharge Diagnoses Hypertensive urgency I16.0 Atypical chest pain R07.89 Aortic stenosis I35.0 Iron malabsorption K90.9 Gastritis K29.70 BPH (benign prostatic hyperplasia) N40.0 DVT prophylaxis Z29.9
== END 2020-10-31 14:04 | disposition home or self-care (01) ==
LOC: 2N 12:15 → ED 12:15 → SUATTDRO 14:12 → 2N 17:08

== ENCOUNTER 2020-11-22 22:58 | Inpatient (IN) ==
[2020-11-22] MEDS ORDERED: fentaNYL citrate 100 MCG/2 ML VIAL IV STA (23:18)
[2020-11-22] MEDS ORDERED: ONDANSETRON INJ 2 MG/ML 2 ML VIAL IV STA (23:18)
--- NOTE | 2020-11-22 23:24 | Emergency Department Note ---
Impression & Plan Small bowel obstruction ED Provider Note NAME: KRISTIN ALVAREZ AGE: 85 SEX: M ARRIVES VIA: Walk-In INFORMANT: Patient ED PROVIDER(S): Jenny Maier DO CHIEF COMPLAINT: Abdominal pain and vomiting PLAN: [facility] Condition: Stable MEDICAL DECISION MAKING: This is an 85-year-old male patient who presents to the emergency department with abdominal pain and vomiting. Patient has an extensive history of previous small bowel obstructions. The patient has had increasing abdominal pain, bloating and belching throughout the day today. He was vomiting this evening. An obstruction series shows significantly dilated loops of small bowel. CT scan of the abdomen/pelvis confirms high-grade small bowel obstruction. NG tube was placed to wall suction. This did relieve some of the patient's abdominal discomfort. I discussed the case with the [facility] hospitalist and they will evaluate for further management. Triage Nursing notes reviewed and agree with them. Prior medical records reviewed Vital Signs: reviewed and remarkable for mild hypertension Differential diagnosis: Gastritis; pancreatitis; small bowel obstruction ER treatment provided: IV fentanyl IV Zofran NG tube placement Diagnostics interpreted by me: ECG: Normal sinus rhythm at a rate of 62 with left axis deviation and LVH. This is unchanged from October 30, 2020. There is no signs of ischemia and no ectopy. Cardiac Monitoring: Normal sinus rhythm at a rate of 85. Laboratory studies: See below Imaging studies: As per stat rad CT abdomen pelvis with contrast: Comparison to October 03, 2019. There are several and a stenotic staple lines involving the small bowel. There are several severely dilated loops of small bowel in the mid to lower abdomen measuring up to 9.9 cm in diameter greatest at the locations of previous anastomosis. The distal small bowel is completely decompressed as is the colon indicating a high-grade distal small bowel obstruction. No perforation or abscess seen. There is an NG tube extending into the stomach. The stomach is partially distended but nondilated. The liver demonstrates a right lobe 4 mm simple cyst. The gallbladder, pancreas, spleen, adrenal glands, and kidneys appear within normal limits. The abdominal aorta is mildly calcified but nondilated. Moderate to severe facet arthrosis and degenerative disc disease in the lower lumbar spine. No acute fracture or subluxation. HPI: 85/M arrives for evaluation of abdominal pain and vomiting. Patient describes sharp upper abdominal pain and vomiting throughout the day today. He tried eating soup but became bloated and had significant belching. The pain in his upper abdomen seemed to intensify and he began to vomit. The patient was concerned he may have a recurrent bowel obstruction as he has had multiple obstructions in the past. However, the last one was in 1997. ROS: See above HPI for pertinent positives & negatives. A total of 10 systems reviewed and were otherwise negative. 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 The patient describes initially suffering a trauma to his abdomen in 1988. Approximately 6 weeks after that traumatic injury, he developed his first bowel obstruction. Over the course of 9 years, the patient describes having approximately 10 bowel obstructions. The patient has not had a bowel obstruction since 1997. PAST SURGICAL HISTORY:Lysis of adhesions for small bowel obstruction FAMILY HISTORY:See Below SOCIAL HISTORY:Recently HOME MEDICATIONS:See list ALLERGIES:See list VITALS:See Below PHYSICAL EXAMINATION: HEENT: Head - normocephalic and atraumatic. Pupils are equal, round, and reactive to light. Extraocular eye muscles are intact, and sclera are anicteric. Nose - moist nasal mucosa without discharge. Mouth - moist buccal mucosa. Oropharynx is nonerythematous and there is no tonsillar exudate or edema noted. Neck: Supple; no cervical lymphadenopathy Lungs: Clear to auscultation bilaterally with no wheezes, rales, or rhonchi. Abdomen: Moderately distended; tympanic with percussion. There are no palpable pulsatile masses or hepatosplenomegaly. There is moderate pain with palpation superior to the umbilicus. Extremities: No evidence of cyanosis, clubbing, or edema. There are easily palpable peripheral pulses. Skin: warm and dry with good turgor and no rashes. ED COURSE: Times/Reassessments: 2305: Patient was evaluated in room B3. A complete history and physical was performed. An order was placed for continuous cardiac monitoring. The patient is in a sinus bradycardia at 56. A twelve-lead EKG was obtained. An IV lock was initiated and labs are drawn as above. The patient was given 4 mg of IV Zofran for significant nausea. The patient was given 50 mcg of IV fentanyl for abdominal pain. He went for an obstruction series. 0030: Patient was reevaluated at this time. I reviewed the results of the labs and the x-ray with the patient and explained that he would have a nasogastric tube placed. The patient will go for CT scan of the abdomen/pelvis. 0225: I reevaluated the patient at this time and reviewed the results of the CT scan with the patient and explained that he would require admission to the hospital. Jenny Maier, DO Past Med/Surg History Medical History Anemia Aortic insufficiency Aortic stenosis Moderate 07/2019 Bowel obstruction had 10 episodes, and last one was 1997 Duodenal ulcer hx GERD (gastroesophageal reflux disease) Hypertension IBS (irritable bowel syndrome) Malignant melanoma of skin of nose Mitral regurgitation Osteoarthritis Prostate cancer 04/2018--radiation Tubular adenoma of colon Surgical History History of appendectomy History of bilateral cataract extraction History of bowel resection "x6" History of colonoscopy removal of polyp History of esophagogastroduodenoscopy (EGD) History of eyelid surgery bilt History of Mohs micrographic surgery for skin cancer History of prostate biopsy x3--malignant History of removal of cyst off of face History of repair of left rotator cuff History of surgical removal of pilonidal cyst Family History Grandfather , in his eighties No problems noted. Grandmother , not known No problems noted. Grandfather No problems noted. Grandmother No problems noted. Father , at age 84 committed suicide No problems noted. Sister , In her seventies of appendicitis No problems noted. Brother , at age 80 cancer, they did a Whipple surgery n him No problems noted. Brother , in his sixties of blood clot after surgery Stomach cancer Sister , In her sixties of a blood clot. Had breast cancer No problems noted. Sister , in her eighties cause unknown No problems noted. Son Age: 62 No problems noted. Daughter Age: 53 No problems noted. Son Age: 58 No problems noted. Son Age: 52 No problems noted. Other No family history of adverse response to anesthesia Denies family history of Ovarian cancer Prostate cancer Coronary heart disease Myocardial infarction Breast cancer Colorectal cancer Social History Smoking Status: Former smoker Age Started Using Tobacco: 13; Age Quit Using Tobacco: 49; packs per day: 2; Years Smoked: 36; Cigarettes Per Day: 40; Number of Years Since Quit: 35; Second Hand Exposure: Yes (father smoked); Hx Alcohol Use: No Hx Substance Use: No Preferred Language: Slovak Communication Ability: Effective Visual Impairment: No Limitations Hearing Ability: Hard of Hearing Plant Culture Manager Required: No Beliefs That Will Affect Care: None marital status: / Current Living Situation: Alone Current Living Situation Comment: recently current occupational status: retired Feels Safe at Home: Yes Childhood Exposure to Second-Hand Smoke: Yes caffeine: Yes (3 cups a day) during the past year weight has: remained stable Dental Care, Regularly: Yes Physical Activity Frequency: Does not Exercise Seatbelt Use: always Sunscreen Use: No Assistive Devices: None Allergies Allergies Allergy/AdvReac Type Severity Reaction Status Date / Time penicillin G Allergy Unknown "YEARS Verified 11/22/20 23:40 AGO" - UNKNOWN Sulfa (Sulfonamide Allergy Unknown "YEARS Verified 11/22/20 23:40 Antibiotics) AGO" UNKNOWN REACTION Home Meds Home Medications Medication Instructions Recorded Confirmed ferrous sulfate 325 mg (65 mg 650 mg PO Q OTHER DAY tab 10/10/18 11/22/20 iron) tablet docusate sodium 100 mg capsule 100 mg PO QAM cap 04/09/19 11/22/20 cholecalciferol (vitamin D3) 50 4,000 units PO QAM tab 10/10/19 11/22/20 mcg (2,000 unit) tablet mecobalamin (vitamin B12) 500 mcg SL HS 02/16/20 11/22/20 famotidine 20 mg PO HS 08/13/20 11/22/20 losartan 100 mg PO QAM 10/29/20 11/22/20 tamsulosin 0.4 mg PO QPM 11/22/20 11/22/20 Previous Rx's Medication Instructions Recorded Julia Alfaro #1 ea 06/14/20 clonidine HCl 0.1 mg PO DAILY PRN #30 tab 10/31/20 nitroglycerin [Nitrostat] 0.4 mg SUBLINGUAL Q5M PRN #30 tab 10/31/20 carvedilol 12.5 mg tablet 12.5 mg PO BID #60 tab 11/15/20 Results & Data (ED) Vital Signs Vital Signs - 24 hr 11/22/20 23:02 11/22/20 23:41 11/22/20 23:44 Temperature 36.6 C Temperature Source Temporal Artery Scan Pulse Rate 56 L Pulse Rate [Bilateral Apical] 63 Respiratory Rate 18 20 Respiratory Depth Normal Respiratory Pattern Regular Blood Pressure 155/73 H Blood Pressure [Left Arm] 163/72 H Blood Pressure Mean 100 Blood Pressure Mean [Left Arm] 102 Blood Pressure Position Sitting Pulse Oximetry 98 93 93 Oxygen Delivery Method Room Air Room Air Sepsis Recent Fever Within 48 Hours No Sepsis New/Unexplained Change in Mental Status No Sepsis Action Taken by Nursing No Action Required 11/23/20 00:08 11/23/20 00:42 11/23/20 01:12 Temperature Temperature Source Pulse Rate Pulse Rate [Bilateral Apical] 73 78 80 Respiratory Rate 20 20 20 Respiratory Depth Respiratory Pattern Blood Pressure Blood Pressure [Left Arm] 163/70 H 165/95 H 146/90 H Blood Pressure Mean Blood Pressure Mean [Left Arm] 101 118 108 Blood Pressure Position Pulse Oximetry 93 94 97 Oxygen Delivery Method Room Air Room Air Room Air Sepsis Recent Fever Within 48 Hours Sepsis New/Unexplained Change in Mental Status Sepsis Action Taken by Nursing 11/23/20 02:08 11/23/20 03:19 Temperature Temperature Source Pulse Rate Pulse Rate [Bilateral Apical] 85 76 Respiratory Rate 20 20 Respiratory Depth Respiratory Pattern Blood Pressure Blood Pressure [Left Arm] 122/103 H 174/78 H Blood Pressure Mean Blood Pressure Mean [Left Arm] 109 110 Blood Pressure Position Pulse Oximetry 97 94 Oxygen Delivery Method Room Air Room Air Sepsis Recent Fever Within 48 Hours Sepsis New/Unexplained Change in Mental Status Sepsis Action Taken by Nursing Laboratory Data Result diagrams: 11/22/20 23:29 11/22/20 23:30 Lab Results 11/22/20 11/22/20 11/23/20 Range/Units 23:29 23:30 02:46 WBC 9.62 (4.8-10.8) K/uL RBC 4.38 L (4.7-6.1) M/uL Hgb 13.0 L (14.0-18.0) g/dL Hct 38.8 L (42-52) % MCV 88.6 (80-100) fL MCH 29.7 (25-34) pg MCHC 33.5 (32-36) g/dL RDW Std Deviation 47.6 H (36.4-46.3) fL RDW Coeff of Victor Hugo 14.6 H (11.5-14.5) % Plt Count 185 (130-400) K/uL MPV 10.3 (7.4-10.4) fL Immature Gran % (Auto) 0.4 % Neut % (Auto) 89.7 % Lymph % (Auto) 3.5 % [place] % (Auto) 6.1 % Eos % (Auto) 0.2 % Baso % (Auto) 0.1 % Neut # (Auto) 8.62 H (1.4-6.5) K/uL Lymph # (Auto) 0.34 L (1.2-3.4) K/uL [place] # (Auto) 0.59 (0.11-0.59) K/uL Eos # (Auto) 0.02 (0-0.5) K/uL Baso # (Auto) 0.01 (0-0.2) K/uL Immature Gran # (Auto) 0.04 H (0.00-0.02) K/uL Sodium 142 (136-145) mmol/L Potassium 3.9 (3.5-5.1) mmol/L Chloride 111 H (98-107) mmol/L Carbon Dioxide 26 (21-32) mmol/L Anion Gap 5.0 (3-11) BUN 16 (7-18) mg/dl Creatinine 1.09 (0.6-1.4) mg/dl Est Cr Clr Drug Dosing 48.8 ml/min Est GFR ( Amer) 71.9 Est GFR (Non-Af Amer) 62.0 BUN/Creatinine Ratio 14.2 (10-20) Glucose 148 H (70-99) mg/dl Calcium 8.7 (8.5-10.1) mg/dl Total Bilirubin 0.5 (0.2-1) mg/dl AST 13 L (15-37) U/L ALT 22 (12-78) U/L Alkaline Phosphatase 94 (45-117) U/L Troponin I < 0.015 (0-0.045) ng/ml Total Protein 6.7 (6.4-8.2) gm/dl Albumin 3.7 (3.4-5.0) gm/dl Globulin 3.0 (2.5-4.0) gm/dl Albumin/Globulin Ratio 1.2 (0.9-2) Lipase 126 (73-393) U/L Urine Color Urine Appearance (Clear) Urine pH (4.5-7.5) Ur Specific [place] (1.000-1.030) Urine Protein (Negative) Urine Glucose (UA) (Negative) Urine Ketones (Negative) Urine Blood (Negative) Urine Nitrite (Negative) Urine Bilirubin (Negative) Urine Urobilinogen (Negative) Ur Leukocyte Esterase (Negative) Urine WBC (Auto) (0-5) /hpf Urine RBC (Auto) (0-4) /hpf U Hyaline Cast (Auto) (0-5) /lpf U Epithel Cells (Auto) (0-5) /lpf Urine Bacteria (Auto) (Negative) COVID-19 Eval Order CovFluRsv at [facility] SARS-CoV-2 (PCR) (Negative) Influenza Type A (PCR) (Neg) Influenza Type B (PCR) (Neg) RSV (RT-PCR) (Neg) 11/23/20 11/23/20 Range/Units 02:46 03:16 WBC (4.8-10.8) K/uL RBC (4.7-6.1) M/uL Hgb (14.0-18.0) g/dL Hct (42-52) % MCV (80-100) fL MCH (25-34) pg MCHC (32-36) g/dL RDW Std Deviation (36.4-46.3) fL RDW Coeff of Victor Hugo (11.5-14.5) % Plt Count (130-400) K/uL MPV (7.4-10.4) fL Immature Gran % (Auto) % Neut % (Auto) % Lymph % (Auto) % [place] % (Auto) % Eos % (Auto) % Baso % (Auto) % Neut # (Auto) (1.4-6.5) K/uL Lymph # (Auto) (1.2-3.4) K/uL [place] # (Auto) (0.11-0.59) K/uL Eos # (Auto) (0-0.5) K/uL Baso # (Auto) (0-0.2) K/uL Immature Gran # (Auto) (0.00-0.02) K/uL Sodium (136-145) mmol/L Potassium (3.5-5.1) mmol/L Chloride (98-107) mmol/L Carbon Dioxide (21-32) mmol/L Anion Gap (3-11) BUN (7-18) mg/dl Creatinine (0.6-1.4) mg/dl Est Cr Clr Drug Dosing ml/min Est GFR ( Amer) Est GFR (Non-Af Amer) BUN/Creatinine Ratio (10-20) Glucose (70-99) mg/dl Calcium (8.5-10.1) mg/dl Total Bilirubin (0.2-1) mg/dl AST (15-37) U/L ALT (12-78) U/L Alkaline Phosphatase (45-117) U/L Troponin I (0-0.045) ng/ml Total Protein (6.4-8.2) gm/dl Albumin (3.4-5.0) gm/dl Globulin (2.5-4.0) gm/dl Albumin/Globulin Ratio (0.9-2) Lipase (73-393) U/L Urine Color Dark Yellow Urine Appearance Clear (Clear) Urine pH 5.0 (4.5-7.5) Ur Specific [place] > 1.045 H (1.000-1.030) Urine Protein Trace H (Negative) Urine Glucose (UA) Negative (Negative) Urine Ketones Negative (Negative) Urine Blood Negative (Negative) Urine Nitrite Negative (Negative) Urine Bilirubin Negative (Negative) Urine Urobilinogen Negative (Negative) Ur Leukocyte Esterase Negative (Negative) Urine WBC (Auto) 1-5 (0-5) /hpf Urine RBC (Auto) 5-10 H (0-4) /hpf U Hyaline Cast (Auto) 1-5 (0-5) /lpf U Epithel Cells (Auto) 5-10 H (0-5) /lpf Urine Bacteria (Auto) Negative (Negative) COVID-19 Eval Order SARS-CoV-2 (PCR) NEGATIVE (Negative) Influenza Type A (PCR) Negative (Neg) Influenza Type B (PCR) Negative (Neg) RSV (RT-PCR) Negative (Neg) Administered Medications Ciprofloxacin (Cipro / D5w) 400 mg in 200 mls @ 100 mls/hr IV Q12H SUSAN; Protocol Stop: 12/03/20 05:59 Last Admin: 11/23/20 05:52 Dose: 100 mls/hr Documented by: [id number] Metronidazole (Flagyl) 500 mg in 100 mls @ 100 mls/hr IV Q8H SUSAN Stop: 12/03/20 05:59 Last Admin: 11/23/20 05:52 Dose: 100 mls/hr Documented by: [id number] Sodium Chloride (Nss 1000ml) 1,000 mls @ 125 mls/hr IV .Q8H SUSAN Stop: 12/23/20 05:44 Last Admin: 11/23/20 05:52 Dose: 125 mls/hr Documented by: [id number] Discontinued Medications Fentanyl Citrate (Fentanyl Citrate 100 Mcg/2 Ml Vial) 50 mcg IV NOW STA Stop: 11/22/20 23:19 Last Admin: 11/22/20 23:36 Dose: 50 mcg Documented by: [id number] Sodium Chloride (Nss) 500 mls @ 125 mls/hr IV .Q4H SUSAN Stop: 12/23/20 02:14 Last Infusion: 11/23/20 05:51 Dose: 0 mls/hr Documented by: [id number] Admin: 11/23/20 02:22 Dose: 125 mls/hr Documented by: [id number] Ioversol (Optiray 300 100ml) 100 ml IV ONCE ONE Stop: 11/23/20 01:13 Last Admin: 11/23/20 01:12 Dose: 79 ml Documented by: [id number] Ondansetron HCl (Ondansetron Inj 2 Mg/Ml 2 Ml Vial) 4 mg IV NOW STA Stop: 11/22/20 23:19 Last Admin: 11/22/20 23:36 Dose: 4 mg Documented by: [id number] Discharge Plan Visit Data Chief Complaint: Vomiting Stated Complaint: VOMITING, SHARP PAIN IN STOMACH ED Provider: Jenny Maier Discharge Problem: Small bowel obstruction Patient Disposition: Admitted As Inpatient Discharge Instructions Interventions: ED Discharge Assessment Last Done: 11/23/20 04:36
[2020-11-22 23:43] LABS: Basophils # (auto) 0.01 K/uL (0-0.2); Basophils % (auto) 0.1 %; Eosinophils # (auto) 0.02 K/uL (0-0.5); Eosinophils % (auto) 0.2 %; Hematocrit (blood only) 38.8 % (42-52); Immature Granulocytes # (auto) 0.04 K/uL (0.00-0.02); Immature Granulocytes % (auto) 0.4 %; Lymphocytes # (auto) 0.34 K/uL (1.2-3.4); Lymphocytes % (auto) 3.5 %; Mean Corpuscular Hemoglobin 29.7 pg (25-34); Mean Corpuscular Hgb Conc 33.5 g/dL (32-36); Mean Corpuscular Volume 88.6 fL (80-100); Mean Platelet Volume 10.3 fL (7.4-10.4); Monocytes # (auto) 0.59 K/uL (0.11-0.59); Monocytes % (auto) 6.1 %; Neutrophils # (auto) 8.62 K/uL (1.4-6.5); Neutrophils % (auto) 89.7 %; Platelet Count 185 K/uL (130-400); RDW Coefficient of Variation 14.6 % (11.5-14.5); RDW Standard Deviation 47.6 fL (36.4-46.3); Red Blood Count 4.38 M/uL (4.7-6.1); White Blood Count 9.62 K/uL (4.8-10.8)
[2020-11-23] LABS: Alanine Aminotransferase 22 U/L (12-78); Albumin Level 3.7 gm/dl (3.4-5.0); Aspartate Aminotransferase 13 U/L (15-37); BUN Creatinine Ratio 14.2 (10-20); Blood Urea Nitrogen 16 mg/dl (7-18); Calcium 8.7 mg/dl (8.5-10.1); Carbon Dioxide 26 mmol/L (21-32); Chloride 111 mmol/L (98-107); Creatinine Clr Calc Pharmacy 48.8 ml/min; Est GFR (African American) 71.9; Glucose 148 mg/dl (70-99); Lipase 126 U/L (73-393); Potassium 3.9 mmol/L (3.5-5.1); Sodium 142 mmol/L (136-145)
[2020-11-23 00:05] LABS: Albumin Globulin Ratio 1.2 (0.9-2); Alkaline Phosphatase 94 U/L (45-117); Bilirubin,Total 0.5 mg/dl (0.2-1); Total Protein 6.7 gm/dl (6.4-8.2); Troponin I < 0.015 ng/ml (0-0.045)
[2020-11-23] MEDS ORDERED: OPTIRAY 300 100mL IV ONE (01:12)
[2020-11-23] MEDS ORDERED: SODIUM CHLORIDE 0.9% 500 ML IV SCH (02:15)
[2020-11-23 03:27] LABS: Appearance Urine Clear (Clear); Bacteria Urine Automated Negative (Negative); Bilirubin Urine Negative (Negative); Blood Urine Negative (Negative); Color Urine Dark Yellow; Glucose Urine UA Negative (Negative); Ketones Urine Negative (Negative); Leukocyte Esterase Urine Negative (Negative); Nitrite Urine Negative (Negative); Protein Urine Trace (Negative); Specific Gravity Urine > 1.045 (1.000-1.030); Urobilinogen Urine Negative (Negative)
[2020-11-23 03:32] LABS: Influenza A virus by PCR Negative (Neg); Influenza B virus by PCR Negative (Neg); RSV by PCR Negative (Neg); SARS CoV2 RNA(COVID-19) InHosp NEGATIVE (Negative)
--- NOTE | 2020-11-23 03:34 | History & Physical Report ---
Date of Service November 23, 2020 Assessment & Plan (1) Small bowel obstruction: Small bowel obstruction/10 previous bowel obstructions, 6 requiring surgery with last episode 1997- NPO Admit to medical surgical floor NSS at 125 mils per hour Continue NG tube to low intermittent suction Cipro 400 mg IV every 12 hours Flagyl 500 mg IV every 8 hours Zofran 4 mg IV every 6 hours as needed Famotidine 20 mg IV every 12 hours Consult general surgery Present on Admission?: Yes (2) Bowel obstruction: See above Present on Admission?: Yes (3) Prostate cancer: Hold tamsulosin 0.4 mg every evening Present on Admission?: Yes (4) HTN (hypertension): Hypertension/moderate aortic stenosis- Hold carvedilol, and losartan. Hydralazine 10 mg IV every 4 hours as needed systolic blood pressure greater than 160 Present on Admission?: Yes (5) Moderate aortic stenosis: Present on Admission?: Yes (6) GERD (gastroesophageal reflux disease): GERD/gastritis/hiatal hernia/duodenal ulcer- Change famotidine to 20 mg IV every 12 hours Present on Admission?: Yes (7) Gastritis: See above Present on Admission?: Yes (8) Hiatal hernia: See above Present on Admission?: Yes (9) Duodenal ulcer: See above Present on Admission?: Yes History of Present Illness Chief Complaint: The patient presents to the emergency department with acute episode of severe abdominal pain, and nausea and vomiting x3 during the day prior to arrival, and one episode of nausea vomiting while in the ED. Primary Care Provider: Adithya Allen MD The patient is an 85-year-old male with a past medical history including multiple small bowel obstructions, moderate aortic stenosis, BPH, hypertensive urgency, hypertension, vitamin D deficiency, anemia, hypertension, DJD lumbar spine, gastritis, halo hernia, irritable bowel syndrome, colon tubular adenoma, prostate cancer, malignant melanoma of skin of nose and aortic insufficiency. Patient presented with symptoms similar to previous episodes of small bowel obstruction. Reports a total of 10 previous episodes of small bowel obstruction, 6 of which required surgery in a number of different states. Patient did have NG tube placed to low intermittent suction with some improvement in symptoms in the ED. CT scan of the abdomen the pelvis showed high-grade distal small bowel obstruction with dilated small bowel loops up to 9.9 cm in diameter. Allergies Allergy/AdvReac Type Severity Reaction Status Date / Time penicillin G Allergy Unknown "YEARS Verified 11/22/20 23:40 AGO" - UNKNOWN Sulfa (Sulfonamide Allergy Unknown "YEARS Verified 11/22/20 23:40 Antibiotics) AGO" UNKNOWN REACTION Home Medications Medication Instructions Recorded Confirmed Type ferrous sulfate 325 mg (65 mg 650 mg PO Q OTHER DAY tab 10/10/18 11/22/20 History iron) tablet docusate sodium 100 mg capsule 100 mg PO QAM cap 04/09/19 11/22/20 History cholecalciferol (vitamin D3) 50 4,000 units PO QAM tab 10/10/19 11/22/20 History mcg (2,000 unit) tablet mecobalamin (vitamin B12) 500 mcg SL HS 02/16/20 11/22/20 History Wheeled Walker #1 ea 06/14/20 11/01/20 Rx famotidine 20 mg PO HS 08/13/20 11/22/20 History losartan 100 mg PO QAM 10/29/20 11/22/20 History clonidine HCl 0.1 mg PO DAILY PRN #30 tab 10/31/20 11/22/20 Rx nitroglycerin [Nitrostat] 0.4 mg SUBLINGUAL Q5M PRN #30 tab 10/31/20 11/22/20 Rx carvedilol 12.5 mg tablet 12.5 mg PO BID #60 tab 11/15/20 11/22/20 Rx tamsulosin 0.4 mg PO QPM 11/22/20 11/22/20 History Past Med/Surg History Medical History Anemia Aortic insufficiency Aortic stenosis Bowel obstruction BPH (benign prostatic hyperplasia) Duodenal ulcer GERD (gastroesophageal reflux disease) Hypertension IBS (irritable bowel syndrome) Malignant melanoma of skin of nose Mitral regurgitation Osteoarthritis Prostate cancer Tubular adenoma of colon Surgical History History of appendectomy History of bilateral cataract extraction History of bowel resection History of colonoscopy History of esophagogastroduodenoscopy (EGD) History of eyelid surgery History of Mohs micrographic surgery for skin cancer History of prostate biopsy History of removal of cyst History of repair of left rotator cuff History of surgical removal of pilonidal cyst Family History Grandfather No problems noted. Grandmother No problems noted. Grandfather No problems noted. Grandmother No problems noted. Father No problems noted. Sister No problems noted. Brother No problems noted. Brother Stomach cancer Sister No problems noted. Sister No problems noted. Son Age: 62 No problems noted. Daughter Age: 53 No problems noted. Son Age: 58 No problems noted. Son Age: 52 No problems noted. Other No family history of adverse response to anesthesia Denies family history of Ovarian cancer Prostate cancer Coronary heart disease Myocardial infarction Breast cancer Colorectal cancer Social History Smoking Status: Never smoker Age Started Using Tobacco: 13; Age Quit Using Tobacco: 49; packs per day: 2; Years Smoked: 36; Cigarettes Per Day: 40; Number of Years Since Quit: 35; Second Hand Exposure: Yes (father smoked); Hx Alcohol Use: No Hx Substance Use: No Preferred Language: Zambian Communication Ability: Effective Visual Impairment: No Limitations Hearing Ability: Hard of Hearing Route Delivery Supervisor Required: No Beliefs That Will Affect Care: None marital status: / Current Living Situation: Alone Current Living Situation Comment: recently current occupational status: retired Feels Safe at Home: Yes Childhood Exposure to Second-Hand Smoke: Yes caffeine: Yes (3 cups a day) during the past year weight has: remained stable Dental Care, Regularly: Yes Physical Activity Frequency: Does not Exercise Seatbelt Use: always Sunscreen Use: No Assistive Devices: None Review of Systems Review of Systems: The patient denies chest pain, palpitations, shortness of breath, dyspnea on exertion, cough, lower extremity swelling, sore throat, fevers, chills, sweats, weight change, blood in urine or stool, dysuria, urinary frequency or urgency, lightheadedness, dizziness, headache, memory loss, loss of consciousness, rash, abnormal bruising or bleeding, focal weakness, numbness or tingling in arms or legs, generalized arthralgias or myalgias, back or neck pain, or night sweats. The review of systems is otherwise negative other than for that already noted above, and at least 10 systems have been reviewed. Physical Exam Physical Exam: The patient is awake, alert and oriented 3, well developed and well nourished, normocephalic and atraumatic, lying in bed and in no acute distress. HEENT--PERRL, EOMI, mucous membranes and oropharynx dry. Neck--supple. No JVD. No bruits. Thyroid normal, trachea midline, no adenopathy. Heart--normal S1 and S2. No murmurs, rubs or gallops. Lungs--clear bilaterally, no respiratory distress, no accessory muscle use. Abdomen--decreased bowel sounds. Nontender. Mildly distended and tympanitic. Extremities--no cyanosis or clubbing. No edema. Dermatologic--normal skin turgor, normal color, no abnormal lymph nodes, no rash. Neurologic--cranial nerves II through XII grossly intact. Rheumatologic--normal range of motion. Psychiatric--normal affect. Results & Data Results & Data ([facility]) Vital Signs (Past 12 Hours) Vital Signs Temp Pulse Pulse Resp BP BP Pulse Ox 11/23/20 03:19 76 20 174/78 H 94 11/23/20 02:08 85 20 122/103 H 97 11/23/20 01:12 80 20 146/90 H 97 11/23/20 00:42 78 20 165/95 H 94 11/23/20 00:08 73 20 163/70 H 93 11/22/20 23:44 63 20 163/72 H 93 11/22/20 23:41 93 11/22/20 23:02 97.9 F 56 L 18 155/73 H 98 Laboratory Results Laboratory Results WBC 9.62 K/uL (4.8-10.8) 11/22/20 23:29 RBC 4.38 M/uL (4.7-6.1) L 11/22/20 23:29 Hgb 13.0 g/dL (14.0-18.0) L 11/22/20 23:29 Hct 38.8 % (42-52) L 11/22/20 23:29 MCV 88.6 fL (80-100) 11/22/20 23: MCH 29.7 pg (25-34) 11/22/20 23: MCHC 33.5 g/dL (32-36) 11/22/20: RDW Std Deviation 47.6 fL (36.4-46.3) H 11/22/20: RDW Coeff of Victor Hugo 14.6 % (11.5-14.5) H 11/22/20: Plt Count 185 K/uL (130-400) 11/22/20: MPV 10.3 fL (7.4-10.4) 11/22/20: Immature Gran % (Auto) 0.4 % 11/22/20 23: Neut % (Auto) 89.7 % 11/22/20: Lymph % (Auto) 3.5 % 11/22/20: Andrews % (Auto) 6.1 % 11/22/20: Eos % (Auto) 0.2 % 11/22/20: Baso % (Auto) 0.1 % 11/22/20: Neut # (Auto) 8.62 K/uL (1.4-6.5) H 11/22/20: Lymph # (Auto) 0.34 K/uL (1.2-3.4) L 11/22/20 23: Andrews # (Auto) 0.59 K/uL (0.11-0.59) 11/22/20: Eos # (Auto) 0.02 K/uL (0-0.5) 11/22/20 23: Baso # (Auto) 0.01 K/uL (0-0.2) 11/22/20: Immature Gran # (Auto) 0.04 K/uL (0.00-0.02) H 11/22/20 23: Sodium 142 mmol/L (136-145) 11/22/20 23: Potassium 3.9 mmol/L (3.5-5.1) 11/22/20 23: Chloride 111 mmol/L (98-107) H 11/22/20 23: Carbon Dioxide 26 mmol/L (21-32) 11/22/20 23: Anion Gap 5.0 (3-11) 11/22/20 23: BUN 16 mg/dl (7-18) 11/22/20 23: Creatinine 1.09 mg/dl (0.6-1.4) 11/22/20 23:30 Est Cr Clr Drug Dosing 48.8 ml/min 11/22/20 23:30 Est GFR ( Amer) 71.9 11/22/20 23:30 Est GFR (Non-Af Amer) 62.0 11/22/20 23:30 BUN/Creatinine Ratio 14.2 (10-20) 11/22/20 23:30 Glucose 148 mg/dl (70-99) H 11/22/20 23:30 Calcium 8.7 mg/dl (8.5-10.1) 11/22/20 23:30 Total Bilirubin 0.5 mg/dl (0.2-1) 11/22/20 23:30 AST 13 U/L (15-37) L 11/22/20 23:30 ALT 22 U/L (12-78) 11/22/20 23:30 Alkaline Phosphatase 94 U/L (45-117) 11/22/20 23:30 Troponin I < 0.015 ng/ml (0-0.045) 11/22/20 23:30 Total Protein 6.7 gm/dl (6.4-8.2) 11/22/20 23:30 Albumin 3.7 gm/dl (3.4-5.0) 11/22/20 23:30 Globulin 3.0 gm/dl (2.5-4.0) 11/22/20 23:30 Albumin/Globulin Ratio 1.2 (0.9-2) 11/22/20 23:30 Lipase 126 U/L (73-393) 11/22/20 23:30 Urine Color Dark Yellow 11/23/20 03:16 Urine Appearance Clear (Clear) 11/23/20 03:16 Urine pH 5.0 (4.5-7.5) 11/23/20 03:16 Ur Specific [place] > 1.045 (1.000-1.030) H 11/23/20 03:16 Urine Protein Trace (Negative) H 11/23/20 03:16 Urine Glucose (UA) Negative (Negative) 11/23/20 03:16 Urine Ketones Negative (Negative) 11/23/20 03:16 Urine Blood Negative (Negative) 11/23/20 03:16 Urine Nitrite Negative (Negative) 11/23/20 03:16 Urine Bilirubin Negative (Negative) 11/23/20 03:16 Urine Urobilinogen Negative (Negative) 11/23/20 03:16 Ur Leukocyte Esterase Negative (Negative) 11/23/20 03:16 Urine WBC (Auto) 1-5 /hpf (0-5) 11/23/20 03:16 Urine RBC (Auto) 5-10 /hpf (0-4) H 11/23/20 03:16 U Hyaline Cast (Auto) 1-5 /lpf (0-5) 11/23/20 03:16 U Epithel Cells (Auto) 5-10 /lpf (0-5) H 11/23/20 03:16 Urine Bacteria (Auto) Negative (Negative) 11/23/20 03:16 COVID-19 Eval Order [facility]FluRsv at [facility] 11/23/20 02:46 SARS-CoV-2 (PCR) NEGATIVE (Negative) 11/23/20 02:46 Influenza Type A (PCR) Negative (Neg) 11/23/20 02:46 Influenza Type B (PCR) Negative (Neg) 11/23/20 02:46 RSV (RT-PCR) Negative (Neg) 11/23/20 02:46 Diagnostic Findings [facility] Patient: KRISTIN ALVAREZ (Male) : 37 Status: ER Date: 11/23/20 01:10 Room #: History: EVAL SBO, PAIN IN ABD WITH VOMITING, PT DOES HAVE NG TUBE Slices: [phone] Priors: Tech: Kirill Heredia @ [phone] Exams: CT ABDOMEN & PELVIS With Contrast Contrast: IV Amt: 79 ML OPTIRAY 300 Accession Numbers: [id number] Preliminary Findings Only See Final Report For Complete Findings CT ABDOMEN & PELVIS With Contrast: Comparison to October 03, 2019. There are several anastomotic staple lines involving the small bowel. There are several severely dilated loops of small bowel in the mid to lower abdomen measuring up to 9.9 cm in diameter greatest at the locations of previous anastomosis. The distal small bowel is completely decompressed as is the colon indicating a high-grade distal small bowel obstruction. No perforation or abscess is seen. There is an NG tube extending into the stomach. The stomach is partially distended but nondilated. The liver demonstrates a right lobe 4 mm simple cyst. The gallbladder, pancreas, spleen, adrenal glands, and kidneys appear within normal limits. The abdominal aorta is mildly calcified but nondilated. Moderate to severe facet arthrosis and degenerative disc disease in the lower lumbar spine. No acute fracture or subluxation. Radiologist: Haris Reid MD Study ready at 01:15 and initial results transmitted at 01:41 *This report constitutes a preliminary interpretation only. Non-acute findings felt to be unrelated to the clinical presentation may not be discussed in this report. The study will be interpreted and a final report will be generated by the local Radiologist the following shift. To reach the hospital radiology department call [phone]. If a discrepancy is found between the preliminary and final interpretations of this study, please notify us via our Client Portal at [email or web address] under QA Exams.You can also fax this report with a description of the discrepancy, or include the final report, to our daytime fax number [phone].If faxing, please indicate the severity of discrepancy using one of the following categories: [ ] 1 - Agree/Informational [ ] 2 - Unlikely to Affect Management [ ] 3 - Possible Eventual Change of Management [ ] 4 - Probable Immediate Change of Management For all other patient related information, please fax us at [phone]. [id number] Code Status & VTE Plan Code Status Full code VTE Prophylaxis Plan VTE Prophylaxis will be ordered: Yes PG Care Time/CCT Total # of Minutes Spent Total Time Spent with Patient: Total time spent is greater than 50% in coordination of care (as documented) at patient's floor/unit and/or counseling patient: Coding Level of Care Code 85759 Initial Inpt Care Lvl 3 Diagnoses Small bowel obstruction K56.609 Bowel obstruction K56.609 Prostate cancer C61 HTN (hypertension) I10 Hypertension type: unspecified Moderate aortic stenosis I35.0 GERD (gastroesophageal reflux disease) K21.9 Gastritis K29.70 Hiatal hernia K44.9 Duodenal ulcer K26.9 (1) HTN (hypertension) Hypertension type: unspecified Qualified Code(s): I10 - Essential (primary) hypertension
[2020-11-23] MEDS ORDERED: hydrALAZINE HCL 20 MG/ML VIAL IV PRN (04:17)
[2020-11-23] MEDS ORDERED: ACETAMINOPHEN 1000 MG/100 ML IV IV PRN (05:32)
[2020-11-23] MEDS ORDERED: ONDANSETRON INJ 2 MG/ML 2 ML VIAL IV PRN (05:32)
[2020-11-23] MEDS ORDERED: Nursing to Pharmacy Communication SCH (05:45)
[2020-11-23] MEDS: metroNIDAZOLE 500 MG/100 ML BAG IV SCH ×3 (05:52→21:14)
[2020-11-23] MEDS: SODIUM CHLORIDE 0.9% 1000ML 1,000 ML IV SCH ×2 (05:52→14:07)
[2020-11-23] MEDS: CIPROFLOXACIN / D5W 400 MG/200 ML BAG IV SCH ×2 (05:52→17:24)
--- NOTE | 2020-11-23 06:09 | Surgery Consultation ---
Date of Consultation November 23, 2020 Assessment & Plan (1) Small bowel obstruction: Patient has been admitted by the medical service we will proceed as follows: Provide analgesics Provide antiemetics Maintain n.p.o. status Provide IV fluid for hydration Continue NG tube to low intermittent suction. Patient's multiple abdominal surgeries would be preferable to avoid surgery to see if we can resolve this in a conservative manner We will continue to follow along with the patient is hospitalized Supervising Physician Co-Signing Physician Notes I personally saw and evaluated the patient with Alverto Bustamante PA-C and agree with the assessment and plan. 85 yo male with history of multiple abdominal surgeries, here with SBO -CT images and results reviewed -He does have increased dilation of his mid small bowel, although this was present to some degree from CT scan from September 2019 -He is feeling better with NGT in place and has no abdominal pain currently -Would recommend non-operative management of his SBO at this point with keeping NPO/NGT in place -He may require a SBFT in 1-2 days if he does not resolve -Will follow History of Present Illness Reason for Consultation: Small bowel obstruction Attending Physician: Kemal Shaffer MD History of Present Illness Is an 85-year-old male who presented to [facility] emergency department last night secondary to abdominal pain. Patient says that he was doing fine until yesterday morning when he developed abdominal pain and bloating. He said the pain did not radiate and he did not identify any other modifying factors. He denies any fevers, shakes, chills. He did have associated nausea vomiting. Patient notes that he has had multiple abdominal surgeries secondary to small bowel obstruction in the past most recently 1997. Here. He reports that he has had 6 surgeries secondary small bowel obstructions but he is also had previous small bowel obstructions that were treated successfully in a conservative manner. In the emergency department the patient had imaging and labs performed which were independently reviewed by myself. CBC revealed white blood cell count was in the normal range. His hemoglobin is noted be 13.8. Platelet count was noted be normal. Chemistry profile revealed his sodium, potassium, BUN, creatinine were all within normal range. A Covid test was performed and was noted to be negative. CT scan of the abdomen showed concern for high-grade small bowel obstruction. Patient did have an NG tube inserted and he did note some relief of his abdominal complaints with this modality. At the time of my interview the patient was resting comfortably in bed and was in no distress. Allergies Allergy/AdvReac Type Severity Reaction Status Date / Time penicillin G Allergy Unknown "YEARS Verified 11/22/20 23:40 AGO" - UNKNOWN Sulfa (Sulfonamide Allergy Unknown "YEARS Verified 11/22/20 23:40 Antibiotics) AGO" UNKNOWN REACTION Home Medications Medication Instructions Recorded Confirmed Type ferrous sulfate 325 mg (65 mg 650 mg PO Q OTHER DAY tab 10/10/18 11/22/20 History iron) tablet docusate sodium 100 mg capsule 100 mg PO QAM cap 04/09/19 11/22/20 History cholecalciferol (vitamin D3) 50 4,000 units PO QAM tab 10/10/19 11/22/20 Histo ry mcg (2,000 unit) tablet mecobalamin (vitamin B12) 500 mcg SL HS 02/16/20 11/22/20 History Wheeled Walker #1 ea 06/14/20 11/01/20 Rx famotidine 20 mg PO HS 08/13/20 11/22/20 History losartan 100 mg PO QAM 10/29/20 11/22/20 History clonidine HCl 0.1 mg PO DAILY PRN #30 tab 10/31/20 11/22/20 Rx nitroglycerin [Nitrostat] 0.4 mg SUBLINGUAL Q5M PRN #30 tab 10/31/20 11/22/20 Rx carvedilol 12.5 mg tablet 12.5 mg PO BID #60 tab 11/15/20 11/22/20 Rx tamsulosin 0.4 mg PO QPM 11/22/20 11/22/20 History Patient History Medical History Anemia Aortic insufficiency Aortic stenosis Moderate 07/2019 Bowel obstruction had 10 episodes, and last one was 1997 Duodenal ulcer hx GERD (gastroesophageal reflux disease) Hypertension IBS (irritable bowel syndrome) Malignant melanoma of skin of nose Mitral regurgitation Osteoarthritis Prostate cancer 04/2018--radiation Tubular adenoma of colon Surgical History History of appendectomy History of bilateral cataract extraction History of bowel resection "x6" History of colonoscopy removal of polyp History of esophagogastroduodenoscopy (EGD) History of eyelid surgery bilt History of Mohs micrographic surgery for skin cancer History of prostate biopsy x3--malignant History of removal of cyst off of face History of repair of left rotator cuff History of surgical removal of pilonidal cyst Family History Grandfather , in his eighties No problems noted. Grandmother , not known No problems noted. Grandfather No problems noted. Grandmother No problems noted. Father , at age 84 committed suicide No problems noted. Sister , In her seventies of appendicitis No problems noted. Brother , at age 80 cancer, they did a Whipple surgery n him No problems noted. Brother , in his sixties of blood clot after surgery Stomach cancer Sister , In her sixties of a blood clot. Had breast cancer No problems noted. Sister , in her eighties cause unknown No problems noted. Son Age: 62 No problems noted. Daughter Age: 53 No problems noted. Son Age: 58 No problems noted. Son Age: 52 No problems noted. Other No family history of adverse response to anesthesia Denies family history of Ovarian cancer Prostate cancer Coronary heart disease Myocardial infarction Breast cancer Colorectal cancer Social History Smoking Status: Former smoker Age Started Using Tobacco: 13; Age Quit Using Tobacco: 49; packs per day: 2; Years Smoked: 36; Cigarettes Per Day: 40; Number of Years Since Quit: 35; Second Hand Exposure: Yes (father smoked); Hx Alcohol Use: No Hx Substance Use: No Preferred Language: South African Communication Ability: Effective Visual Impairment: No Limitations Hearing Ability: Hard of Hearing Safety Professional Required: No Beliefs That Will Affect Care: None marital status: / Current Living Situation: Alone Current Living Situation Comment: recently current occupational status: retired Feels Safe at Home: Yes Childhood Exposure to Second-Hand Smoke: Yes caffeine: Yes (3 cups a day) during the past year weight has: remained stable Dental Care, Regularly: Yes Physical Activity Frequency: Does not Exercise Seatbelt Use: always Sunscreen Use: No Assistive Devices: None Review of Systems Constitutional: no fever and no chills Eyes: no diplopia Ear, Nose, Mouth, Throat: no ear pain Respiratory: no cough Cardiovascular: no chest pain Gastrointestinal: + nausea and + vomiting; no abdominal pain Genitourinary: no dysuria Musculoskeletal: no back pain Integumentary: no rash Neurologic: no localized weakness Physical Exam Constitutional: well developed and well nourished; no acute distress Eyes: no conjunctival abnormality ENMT: Ears: no hearing impairment Neck: trachea midline Respiratory: normal respiratory effort; no respiratory distress and no labored breathing Cardiovascular: Rate/Rhythm: regular rate and regular rhythm Gastrointestinal (Abdomen): Percussion/Palpation: abdomen soft; abdomen nontender No rebound tenderness or guarding is noted. Patient had a well- healed midline incision. Musculoskeletal: No calf tenderness Skin: no rashes, warm and dry Neurologic: moves all extremities Psychiatric: A+Ox3, euthymic affect Results & Data ([facility]) Vital Signs (Past 12 Hours) Vital Signs Temp Pulse Pulse Resp BP BP Pulse Ox 11/23/20 04:16 82 20 109/51 L 95 11/23/20 03:19 76 20 174/78 H 94 11/23/20 02:08 85 20 122/103 H 97 11/23/20 01:12 80 20 146/90 H 97 11/23/20 00:42 78 20 165/95 H 94 11/23/20 00:08 73 20 163/70 H 93 11/22/20 23:44 63 20 163/72 H 93 11/22/20 23:41 93 11/22/20 23:02 36.6 C 56 L 18 155/73 H 98 PG Care Time/CCT Total # of Minutes Spent Total Time Spent with Patient: Total time spent is greater than 50% in coordination of care (as documented) at patient's floor/unit and/or counseling patient: Coding Level of Care Code 63492 Inpt Consult Level 5 Diagnoses Small bowel obstruction K56.609
--- NOTE | 2020-11-23 07:00 | XRay Report ---
XR abdomen 2V w PA chest CLINICAL HISTORY: Abdominal pain and vomiting. Possible small bowel obstruction COMPARISON STUDY: Chest x-ray dated 10/29/2020 FINDINGS: The heart is mildly enlarged. There is no free intraperitoneal air. There is no focal pulmo nary consolidation. Erect and supine views the abdomen reveal multiple dilated small bowel loops with air-fluid levels. The findings are consistent with a small bowel obstructive pattern. IMPRESSION: Multiple dilated small bowel loops with multiple air-fluid levels. The findings are cons istent with a small bowel obstruction. No free air identified. ACT 112: Negative or not required by law. Electronically signed by: Manuel Terry M.D. 11/23/2020 6:58 AM
--- NOTE | 2020-11-23 07:25 | CT Scan Report ---
CT abd pelvis IV con only CLINICAL HISTORY: Small bowel obstruction. COMPARISON STUDY: CT scan dated 10/03/2019, abdominal series dated 11/23/2020 TECHNIQUE: Patient was scanned in a dynamic helical fashion during intravenous administration of 79 c c of Optiray 320 A dose lowering technique was utilized adhering to the principles of ALARA. CT DOSE: 305.84 mGy.cm FINDINGS: Lower chest: There is an enteric tube present positioned within the stomach. There are mild basilar a telectatic changes. Liver: There is an 8 mm right hepatic lobe hypodensity, similar to the prior study and likely represe nting a cyst. The hepatic and portal veins appear patent. Gallbladder: Unremarkable. Spleen: Normal in size and attenuation. Pancreas: Unremarkable. Adrenal glands: Unremarkable. Kidneys: There are subcentimeter renal cysts. There is no hydronephrosis. Bowel: Postsurgical changes are again evident. There are multiple dilated small bowel loops with air- fluid levels. The distal small bowel is of normal caliber. The findings are indicative of a mid to di stal small bowel obstruction. There is no evidence of acute diverticulitis. Peritoneum: There is no intraperitoneal free air or abdominal ascites. Vasculature: The abdominal aorta is normal in course and caliber. Adenopathy: None. Pelvic viscera: Prostate brachytherapy seeds are visualized. There is minimal bladder wall thickening . Skeletal structures: No destructive osseous lesions are seen. IMPRESSION: 1. High-grade mid to distal small bowel obstruction. 2. Nasogastric tube within the stomach. 3. No evidence of free air. No evidence of ascites. No evidence of pneumatosis. No evidence of portal venous gas. 4. Evidence of a prior small bowel obstruction with an entero enteroanastomosis. The bowel the level of anastomosis is markedly dilated measuring 14 cm. ACT 112: Negative or not required by law. Electronically signed by: Manuel Terry M.D. 11/23/2020 7:24 AM
--- NOTE | 2020-11-23 07:44 | Hospitalist Progress Note ---
Date of Service November 23, 2020 Assessment & Plan (1) Small bowel obstruction: (2) GERD (gastroesophageal reflux disease): (3) Moderate aortic stenosis: (4) HTN (hypertension): (5) Anemia: (6) DJD (degenerative joint disease), lumbar: (7) Gastritis: (8) IBS (irritable bowel syndrome): (9) Tubular adenoma of colon: (10) Prostate cancer: Admission and Anticipated Discharge Date Admission Date: November 23, 2020 Results & Data Results & Data ([facility]) Vital Signs (Past 12 Hours) Vital Signs Temp Pulse Pulse Resp BP BP Pulse Ox 11/23/20 07:00 37.1 C 83 16 152/68 H 95 11/23/20 04:16 82 20 109/51 L 95 11/23/20 03:19 76 20 174/78 H 94 11/23/20 02:08 85 20 122/103 H 97 11/23/20 01:12 80 20 146/90 H 97 11/23/20 00:42 78 20 165/95 H 94 11/23/20 00:08 73 20 163/70 H 93 11/22/20 23:44 63 20 163/72 H 93 11/22/20 23:41 93 11/22/20 23:02 36.6 C 56 L 18 155/73 H 98 (1) HTN (hypertension) Hypertension type: unspecified Qualified Code(s): I10 - Essential (primary) hypertension
[2020-11-23] MEDS: FAMOTIDINE 20 MG in SYRINGE 3 ML IV SCH ×2 (08:49→21:14)
--- NOTE | 2020-11-23 12:41 | Electrocardiogram Report ---
Test Reason : Blood Pressure : / mmHG Vent. Rate : 062 BPM Atrial Rate : 062 BPM P-R Int : 202 ms QRS Dur : 144 ms QT Int : 408 ms P-R-T Axes : 050 -48 039 degrees QTc Int : 414 ms Normal sinus rhythm Left axis deviation Left ventricular hypertrophy with QRS widening Abnormal ECG When compared with ECG of 30-OCT-2020 17:48, No significant change was found Confirmed by Ru Vera ([id number]) on 11/23/2020 12:41:19 PM Referred By: REFERRED SELF Confirmed By:Ru Vera
--- NOTE | 2020-11-23 12:50 | Medical Student Progress Note ---
Date of Service November 23, 2020 Assessment & Plan (1) Small bowel obstruction: 1. Small Bowel Obstruction Arun Hill is an 85-year-old male with a past medical history of 10 small bowel obstructions between 1988 and 1997, GERD, HTN, moderate aortic stenosis, and BPH who presented to [facility] emergency department on 11/22/20 secondary to abdominal pain and vomiting. Abdominal/Pelvic CT confirmed a high-grade SBO and he was admitted for medical management and surgical consult. Of the 10 SBOs between 1988 and 1997, 6 were managed surgically. The patient's surgical history and lack of evidence for other causes makes adhesions the most likely cause of his current obstruction. The hospitalist team, surgical team, and the patient are in favor of non-surgical management at this time. * NPO status * NSS at 125 ml/hr for hydration during NPO status * Ondansetron 4 mg IV every 6 hours for nausea * Famotidine 20 mg IV every 12 hours * General surgery consult appreciated. Recommend medical management at this time. * Electrolytes within normal range. Recheck BMP daily. * Discontinued antibiotic therapy. Ciprofloxacin and Metronidazole initiated at time of admission but risk of infection is considered low * Discussed potential impact of dietary prevention of SBO (small meals, low fi amber). Due to a low level of evidence, no specific dietary recommendations were made. 2. HTN * Hydralazine 10 mg IV Q4h PRN * Hold home carvedilol and losartan 3. GERD * Famotidine 4 mg IV Code Status: Full code FEN: Normal saline infusion. NPO DVT PPx: LMWH Dispo: Observation Admission and Anticipated Discharge Date Admission Date: November 23, 2020 Supervising Attestation I personally examined the patient and verified all pop points of history and exam, discussed case, and agree with decision making with Morgan Petit MS4 Feeling much better already. Belly much less distended, no nausea, pain controlled, actually feels like he might have a bowel movement soon. Vitals noted, in general he is awake and alert pleasant no distress. HEENT normocephalic atraumatic mucous membranes moist. NG tube in place without any local breakdown. Abdomen is soft nondistended nontender no masses organomegaly. Extremities show no sinus clubbing or edema, no calf tenderness. Neuro shows no focal deficits. Small bowel obstructionalmost certainly adhesional. Supportive care, time, serial exams. Appears to be improving. add lovenox for DVT proph Otherwise as above Subjective Mr. Hill does not have any concerns this morning. He does not have any abdominal pain or N/V. He denies any bowel movement and he has not passed gas. However, he did experience a temporary urge to defecate today. Review of Systems Constitutional: no fever, no chills, no fatigue, no weakness and no insomnia Respiratory: no dyspnea Cardiovascular: no chest pain and no palpitations Gastrointestinal: + bloating; no abdominal pain, no heartburn, no nausea and no vomiting Genitourinary: no dysuria and no difficulty urinating Integumentary: no rash and no lesions Neurologic: no problem reported Psychiatric: no problem reported Physical Exam Constitutional: WD/WN, vitals as above Eyes: PERRL, conjunctivae normal, anicteric sclerae ENMT: external ear and nose normal, oropharynx normal Neck: normal visual inspection Respiratory: normal respiratory effort, lungs clear to auscultation Cardiovascular: RRR, no murmur, no edema Gastrointestinal (Abdomen): Inspection/Auscultation: abdomen normal to inspection, + abdomen distended (mild), + abdominal surgical scar (Midline, epigastric region) and + hypoactive bowel sounds (Bowel sounds present but are minimal); no high-pitched sounds and no hyperactive bowel sounds Percussion/Palpation: abdomen soft; abdomen nontender, no guarding, abdomen not rigid, no hepatosplenomegaly, no hernia, no abdominal mass and no ascites Skin: no rashes, warm and dry Psychiatric: A+Ox3, euthymic affect Results & Data ([facility]) Vital Signs (Past 12 Hours) Vital Signs Temp Pulse Resp BP Pulse Ox 11/23/20 07:00 37.1 C 83 16 152/68 H 95 11/23/20 04:16 82 20 109/51 L 95 11/23/20 03:19 76 20 174/78 H 94 11/23/20 02:08 85 20 122/103 H 97 11/23/20 01:12 80 20 146/90 H 97 11/23/20 00:42 78 20 165/95 H 94 Laboratory Results Sodium 142, Potassium 3.9, Calcium 8.7 BUN 16, Cr 1.09 Diagnostic Findings Abdominal/Pelvic CT: -High-grade mid/distal SBO -No free air, no ascites -Evidence of previous SBO with entero-enteroanastomosis. Marked 14 cm dilation at the level of the anastomosis
[2020-11-24] MEDS: SODIUM CHLORIDE 0.9% 1000ML 1,000 ML IV SCH ×4 (00:46→16:51)
[2020-11-24 06:04] LABS: Eosinophils # (auto) 0.08 K/uL (0-0.5); Eosinophils % (auto) 1.6 %; Hematocrit (blood only) 34.9 % (42-52); Hemoglobin 11.5 g/dL (14.0-18.0); Lymphocytes # (auto) 0.43 K/uL (1.2-3.4); Lymphocytes % (auto) 8.6 %; Mean Corpuscular Hemoglobin 29.3 pg (25-34); Mean Corpuscular Volume 88.8 fL (80-100); Neutrophils # (auto) 3.78 K/uL (1.4-6.5); Neutrophils % (auto) 75.8 %; Platelet Count 138 K/uL (130-400); RDW Coefficient of Variation 14.8 % (11.5-14.5); RDW Standard Deviation 48.6 fL (36.4-46.3); Red Blood Count 3.93 M/uL (4.7-6.1); White Blood Count 4.99 K/uL (4.8-10.8)
[2020-11-24] MEDS: CIPROFLOXACIN / D5W 400 MG/200 ML BAG IV SCH (06:07)
[2020-11-24] MEDS: metroNIDAZOLE 500 MG/100 ML BAG IV SCH (06:08)
[2020-11-24 06:37] LABS: Albumin Level 2.8 gm/dl (3.4-5.0); Calcium 7.6 mg/dl (8.5-10.1); Creatinine Clr Calc Pharmacy 54.8 ml/min; Est GFR (African American) 82.7; Est GFR (Non-African American) 71.4; Magnesium 2.1 mg/dl (1.8-2.4); Potassium 3.8 mmol/L (3.5-5.1)
[2020-11-24 06:43] LABS: Bilirubin,Total 0.9 mg/dl (0.2-1); Globulin 2.7 gm/dl (2.5-4.0); Total Protein 5.5 gm/dl (6.4-8.2)
--- NOTE | 2020-11-24 08:35 | Surgery Progress Note ---
Date of Service November 24, 2020 Assessment & Plan (1) Small bowel obstruction: Patient here with small bowel obstruction Patient denies abd pain/nausea/vomiting. Says he passed a tiny amount of flatus NGT output is decreasing 450cc documented from 1.9L Will recommend continuing NGT for now until further return of bowel function Encourage out of bed with ambulation If not much progress is made by tomorrow we will likely order a SBFT Admission and Anticipated Discharge Date Admission Date: November 23, 2020 Supervising Physician Co-Signing Physician Notes I personally saw and evaluated the patient with Gladys Mariano PA-C and agree with the assessment and plan. 85 yo male with history of multiple abdominal surgeries, here with SBO -Had a BM this morning and continues without abdominal pain or N/V -Clamp trial NGT, pull later if residual low -Will continue to follow Subjective Patient feeling okay this AM. Denies any abdominal pain, nausea/vomiting. Says he passed a tiny bit of flatus and thought he has felt some rumblings. No BM yet. Physical Exam Physical Exam: awake/alert Constitutional: no acute distress Respiratory: normal respiratory effort Gastrointestinal (Abdomen): Inspection/Auscultation: + abdomen distended (mild) Percussion/Palpation: abdomen soft; abdomen nontender Results & Data ([facility]) Vital Signs (Past 12 Hours) Vital Signs Temp Pulse Resp BP Pulse Ox 11/24/20 07:24 37.1 C 68 16 137/66 96 11/23/20 23:07 37.3 C 68 16 115/54 L 95 PG Care Time/CCT Total # of Minutes Spent Total Time Spent with Patient: Total time spent is greater than 50% in coordination of care (as documented) at patient's floor/unit and/or counseling patient: Coding Level of Care Code 70035 Subseq Hosp Care Lvl 1 Diagnoses Small bowel obstruction K56.609
[2020-11-24] MEDS: FAMOTIDINE 20 MG in SYRINGE 3 ML IV SCH ×2 (09:09→20:28)
[2020-11-24] MEDS: ENOXAPARIN INJ 40 MG/0.4 ML SYR SQ SCH (09:10)
--- NOTE | 2020-11-24 16:17 | Medical Student Progress Note ---
Date of Service November 24, 2020 Assessment & Plan (1) Small bowel obstruction: 1. Small Bowel Obstruction Arun Hill is an 85-year-old male with a past medical history of 10 small bowel obstructions between 1988 and 1997, GERD, HTN, moderate aortic stenosis, and BPH who presented to [facility] emergency department on 11/22/20 secondary to abdominal pain and vomiting. Abdominal/Pelvic CT confirmed a high-grade SBO and he was admitted for medical management and surgical consult. Of the 10 SBOs between 1988 and 1997, 6 were managed surgically. The patient's surgical history and lack of evidence for other causes makes adhesions the most likely cause of his current obstruction. The hospitalist team, surgical team, and the patient are in favor of non-surgical management at this time. * NPO status * NGT placed. 450 cc output on 11/23. Removed on 11/24 * NSS at 125 ml/hr for hydration during NPO status * Ondansetron 4 mg IV every 6 hours for nausea * Famotidine 20 mg IV every 12 hours * General surgery consult appreciated. Recommend medical management at this time. Surgical team will consider a SBFT if patient is still obstructed tomorrow * Electrolytes within normal range. Recheck BMP daily. * Acetaminophen PRN for pain * Discontinued antibiotic therapy. Ciprofloxacin and Metronidazole initiated at time of admission but risk of infection is considered low * Discussed potential impact of dietary prevention of SBO (small meals, low fiber). Due to a low level of evidence, no specific dietary recommendations were made. 2. HTN * Hydralazine 10 mg IV Q4h PRN * Hold home carvedilol and losartan 3. GERD * Famotidine 4 mg IV Code Status: Full code FEN: Normal saline infusion. NPO DVT PPx: LMWH Dispo: Observation Admission and Anticipated Discharge Date Admission Date: November 23, 2020 Supervising Attestation I personally examined the patient and verified all pop points of history and exam, discussed case, and agree with decision making with Morgan Petit MS4 NG tube out. Baron continues to feel better overall, although he did have what he felt like was a gas pain after ice chips. Some flatus no bowel movement. Vitals noted, in general he is awake and alert pleasant no distress. HEENT normocephalic atraumatic mucous membranes moist. Abdomen is soft nondistended (may be slightly more distended than yesterday, but he is sitting up) nontender no masses organomegaly. Extremities show no sinus clubbing or edema, no calf tenderness. Neuro shows no focal deficits. Small bowel obstructionalmost certainly adhesional. Supportive care, time, serial exams. Continues to show slow improvement lovenox for DVT proph Otherwise as above Subjective Mr. Hill is doing well this morning. He denies any abdominal pain, nausea, or vomiting. He has not had a bowel movement but he notes that he had mild flatus this morning. He also endorses increased abdominal gurgling. He has been walking frequently in an attempt to stimulate his bowels. He also admits to eating a few ice cubes, which caused a mild bloating sensation. Review of Systems Constitutional: no fatigue, no weakness and no anorexia Respiratory: no dyspnea Cardiovascular: no chest pain Gastrointestinal: as per Subjective / HPI Genitourinary: no dysuria and no difficulty urinating Physical Exam Constitutional: WD/WN, vitals as above Respiratory: normal respiratory effort, lungs clear to auscultation Cardiovascular: RRR, no murmur, no edema Gastrointestinal (Abdomen): Inspection/Auscultation: + abdomen distended (mild distension. slight decrease compared to yesterday) and + hypoactive bowel sounds (mild bowel sounds. No significant change since yesterday); no high-pitched sounds Percussion/Palpation: abdomen soft; abdomen nontender, no guarding, abdomen not rigid and no hepatosplenomegaly Skin: no rashes, warm and dry Psychiatric: A+Ox3, euthymic affect Results & Data ([facility]) Vital Signs (Past 12 Hours) Vital Signs Temp Pulse Resp BP Pulse Ox 11/24/20 15:35 37.0 C 80 16 168/82 H 98 11/24/20 07:24 37.1 C 68 16 137/66 96 Laboratory Results Sodium 143, Potassium 3.8, Calcium 7.6, Magnesium 2.1 BUN 19, Cr 0.97
--- NOTE | 2020-11-24 19:06 | Billing Data ---
Date of Service November 24, 2020 Coding Level of Care Code 67499 Subseq Hosp Care Lvl 2
[2020-11-24] MEDS: MELATONIN 3 MG TAB PO PRN (23:18)
[2020-11-25] MEDS: SODIUM CHLORIDE 0.9% 1000ML 1,000 ML IV SCH (00:36)
[2020-11-25 06:05] LABS: Basophils # (auto) 0.01 K/uL (0-0.2); Basophils % (auto) 0.2 %; Eosinophils # (auto) 0.05 K/uL (0-0.5); Eosinophils % (auto) 1.2 %; Hematocrit (blood only) 33.5 % (42-52); Hemoglobin 10.9 g/dL (14.0-18.0); Lymphocytes # (auto) 0.35 K/uL (1.2-3.4); Lymphocytes % (auto) 8.5 %; Mean Corpuscular Hemoglobin 28.8 pg (25-34); Mean Corpuscular Hgb Conc 32.5 g/dL (32-36); Mean Corpuscular Volume 88.4 fL (80-100); Mean Platelet Volume 10.1 fL (7.4-10.4); Monocytes # (auto) 0.57 K/uL (0.11-0.59); Monocytes % (auto) 13.9 %; Neutrophils # (auto) 3.13 K/uL (1.4-6.5); Neutrophils % (auto) 76.2 %; Platelet Count 133 K/uL (130-400); RDW Coefficient of Variation 14.3 % (11.5-14.5); RDW Standard Deviation 46.9 fL (36.4-46.3); Red Blood Count 3.79 M/uL (4.7-6.1); White Blood Count 4.11 K/uL (4.8-10.8)
[2020-11-25 06:32] LABS: Albumin Level 2.7 gm/dl (3.4-5.0); BUN Creatinine Ratio 18.9 (10-20); Calcium 7.5 mg/dl (8.5-10.1); Creatinine Clr Calc Pharmacy 59.8 ml/min; Est GFR (Non-African American) 78.5
[2020-11-25 06:34] LABS: Bilirubin,Total 0.5 mg/dl (0.2-1); Globulin 2.6 gm/dl (2.5-4.0); Total Protein 5.3 gm/dl (6.4-8.2)
--- NOTE | 2020-11-25 08:16 | Surgery Progress Note ---
Date of Service November 25, 2020 Assessment & Plan (1) Small bowel obstruction: some improvement begin clears, probably not advance until tomorrow seen with Dr. Newsome [facility] Admission and Anticipated Discharge Date Admission Date: November 23, 2020 Supervising Physician Co-Signing Physician Notes I personally saw and evaluated the patient with Martín Mckeon PA-C and agree with the assessment and plan. 85 yo male with history of multiple abdominal surgeries, here with SBO -He continues to improve slowly -Trial clear liquids for today -Will continue to follow Subjective had some heartburn last night and difficulty sleeping, better this AM, no flatus, small BM Physical Exam Gastrointestinal (Abdomen): Inspection/Auscultation: + abdomen distended (slightly) Percussion/Palpation: + abdomen tender (minimal LLQ) and abdomen soft Results & Data ([facility]) Vital Signs (Past 12 Hours) Vital Signs Temp Pulse Resp BP Pulse Ox 11/25/20 07:14 37.1 C 70 16 148/68 H 94 11/24/20 22:47 37.2 C 72 18 156/68 H 96 PG Care Time/CCT Total # of Minutes Spent Total Time Spent with Patient: Total time spent is greater than 50% in coordination of care (as documented) at patient's floor/unit and/or counseling patient: Coding Level of Care Code 09410 Subseq Hosp Care Lvl 1 Diagnoses Small bowel obstruction K56.609
[2020-11-25] MEDS: D5W AND LACTATED RINGERS 1,000 ML IV SCH ×2 (09:00→22:01)
[2020-11-25] MEDS: FAMOTIDINE 20 MG in SYRINGE 3 ML IV SCH ×2 (09:01→22:01)
[2020-11-25] MEDS: ENOXAPARIN INJ 40 MG/0.4 ML SYR SQ SCH (09:01)
--- NOTE | 2020-11-25 13:15 | Medical Student Progress Note ---
Date of Service November 25, 2020 Assessment & Plan (1) Small bowel obstruction: 1. Small Bowel Obstruction Arun Hill is an 85-year-old male with a past medical history of 10 small bowel obstructions between 1988 and 1997, GERD, HTN, moderate aortic stenosis, and BPH who presented to [facility] emergency department on 11/22/20 secondary to abdominal pain and vomiting. Abdominal/Pelvic CT confirmed a high-grade SBO and he was admitted for medical management and surgical consult. Of the 10 SBOs between 1988 and 1997, 6 were managed surgically. The patient's surgical history and lack of evidence for other causes makes adhesions the most likely cause of his current obstruction. The hospitalist team, surgical team, and the patient are in favor of non-surgical management at this time. * Clear liquid diet tolerated well. Progress to full liquid diet at this time. If tolerated well, progress to solid foods. * NGT placed. 450 cc output on 11/23. Removed on 11/24 * Discontinued NSS infusion and started D5W due to mild hypoglycemia. Discontinue D5W now that patient is progressing to dietary sugar intake. * Ondansetron 4 mg IV every 6 hours for nausea * Famotidine 20 mg IV every 12 hours * General surgery consult appreciated. Recommend conservative management at this time * Electrolytes within normal range. Recheck BMP daily. * Acetaminophen PRN for pain * Discontinued antibiotic therapy 11/23. Ciprofloxacin and Metronidazole initiated at time of admission but risk of infection is considered low * Discussed potential impact of dietary prevention of SBO (small meals, low fiber). Due to a low level of evidence, no specific dietary recommendations were made. 2. HTN * Hydralazine 10 mg IV Q4h PRN * Hold home carvedilol and losartan 3. GERD * Famotidine 4 mg IV 4. Insomnia * Melatonin PRN Code Status: Full code FEN: Liquid diet DVT PPx: LMWH Dispo: Observation Admission and Anticipated Discharge Date Admission Date: November 23, 2020 Supervising Attestation I personally examined the patient and verified all pop points of history and exam, discussed case, and agree with decision making with Dr Petit Tolerating clears without difficulty. Small bowel movement. Belly overall feeling better. Just a little tired. Vitals noted, in general he is awake and alert pleasant no distress. HEENT normocephalic atraumatic mucous membranes moist. Breathing unlabored no accessory muscle use good effort. Extremities show no sinus clubbing or edema, no calf tenderness. Neuro shows no focal deficits. Small bowel obstructionalmost certainly adhesional. Supportive care, time, serial exams. Continues to show slow improvementadvance diet to full liquid lovenox for DVT proph Otherwise as above Subjective The patient had some difficulty sleeping last night despite Melatonin PRN. He also notes mild epigastric pain of burning quality that he attributes to reflux, but he denies any other abdominal pain, nausea, or vomiting. He states that he had a very small bowel movement this morning without any flatus since yesterday. He has transitioned to a clear diet consisting of jell-o, broth, and orange juice, which he tolerated well without abdominal pain or bloating. Review of Systems Constitutional: no fatigue and no anorexia Respiratory: no dyspnea Cardiovascular: no chest pain Gastrointestinal: as per Subjective / HPI Genitourinary: no dysuria and no difficulty urinating Physical Exam Constitutional: WD/WN, vitals as above no acute distress Neck: normal visual inspection Respiratory: normal respiratory effort, lungs clear to auscultation Cardiovascular: RRR, no murmur, no edema Gastrointestinal (Abdomen): Inspection/Auscultation: abdomen normal to inspection and + hypoactive bowel sounds; abdomen not distended and no high- pitched sounds Percussion/Palpation: abdomen soft; abdomen nontender, no guarding and abdomen not rigid Skin: no rashes, warm and dry Psychiatric: A+Ox3, euthymic affect Results & Data ([facility]) Vital Signs (Past 12 Hours) Vital Signs Temp Pulse Resp BP Pulse Ox 11/25/20 07:14 37.1 C 70 16 148/68 H 94
--- NOTE | 2020-11-25 16:53 | Billing Data ---
Date of Service November 25, 2020 Coding Level of Care Code 62468 Subseq Hosp Care Lvl 3
[2020-11-25] MEDS: MELATONIN 3 MG TAB PO PRN (22:01)
[2020-11-26 06:58] VITALS: PULSE 53; TEMP 99.3; O2SAT 96
--- NOTE | 2020-11-26 07:31 | Surgery Progress Note ---
Date of Service November 26, 2020 Assessment & Plan (1) Small bowel obstruction: Patient clinically feeling well. He is tolerating clear liquids Denies any abdominal complaints. He is passing flatus and had a BM daily over the last two days Abdomen is soft and non tender Will advance to a regular diet this AM. If tolerates and continues to do well, he may be discharged to home from our standpoint Admission and Anticipated Discharge Date Admission Date: November 23, 2020 Subjective Patient says he is feeling well. Had another BM yesterday and continues to pass flatus. He is tolerating a liquid diet. Denies any further abdominal pain/nausea/vomiting. Physical Exam Physical Exam: awake/alert Constitutional: no acute distress Respiratory: normal respiratory effort Gastrointestinal (Abdomen): Inspection/Auscultation: abdomen not distended Percussion/Palpation: abdomen soft; abdomen nontender Results & Data ([facility]) Vital Signs (Past 12 Hours) Vital Signs Temp Pulse Resp BP BP Pulse Ox Pulse Ox 11/26/20 06:55 37.4 C 53 L 16 177/72 H 96 11/25/20 22:10 97 11/25/20 22:00 37 C 67 16 172/71 H 97 PG Care Time/CCT Total # of Minutes Spent Total Time Spent with Patient: Total time spent is greater than 50% in coordination of care (as documented) at patient's floor/unit and/or counseling patient: Coding Level of Care Code 24908 Subseq Hosp Care Lvl 1 Diagnoses Small bowel obstruction K56.609
[2020-11-26] MEDS ORDERED: HYDROCORTISONE 1% OINT 30 GM TUBE EXT PRN (08:37)
[2020-11-26 08:48] LABS: BUN Creatinine Ratio 8.3 (10-20); Calcium 8.2 mg/dl (8.5-10.1); Creatinine Clr Calc Pharmacy 59.8 ml/min; Est GFR (Non-African American) 78.5; Potassium 3.7 mmol/L (3.5-5.1)
[2020-11-26] MEDS: ENOXAPARIN INJ 40 MG/0.4 ML SYR SQ SCH (09:26)
[2020-11-26] MEDS: FAMOTIDINE 20 MG in SYRINGE 3 ML IV SCH (09:26)
[2020-11-26 09:52] VITALS: BP 172/71
--- NOTE | 2020-11-26 18:18 | Discharge Summary ---
Date of Service November 26, 2020 Admission HPI Per Admitting Provider The patient is an 85-year-old male with a past medical history including multiple small bowel obstructions, moderate aortic stenosis, BPH, hypertensive urgency, hypertension, vitamin D deficiency, anemia, hypertension, DJD lumbar spine, gastritis, halo hernia, irritable bowel syndrome, colon tubular adenoma, prostate cancer, malignant melanoma of skin of nose and aortic insufficiency. Patient presented with symptoms similar to previous episodes of small bowel obstruction. Reports a total of 10 previous episodes of small bowel obstruction, 6 of which required surgery in a number of different states. Patient did have NG tube placed to low intermittent suction with some improvement in symptoms in the ED. CT scan of the abdomen the pelvis showed high-grade distal small bowel obstruction with dilated small bowel loops up to 9.9 cm in diameter. Principal Diagnosis Adhesional small bowel obstruction Discharge Exam In general he is awake and alert, pleasant no distress. HEENT normocephalic atraumatic mucous membranes moist. Breathing unlabored no accessory muscle use good effort. Skin shows no rashes no pallor or icterus. Neuro shows no focal deficits. See surgical consult for their exam as well. Discharge Data Allergies Allergy/AdvReac Type Severity Reaction Status Date / Time penicillin G Allergy Unknown "YEARS Verified 11/22/20 23:40 AGO" - UNKNOWN Sulfa (Sulfonamide Allergy Unknown "YEARS Verified 11/22/20 23:40 Antibiotics) AGO" UNKNOWN REACTION Consultations 11/23/20 02:08 ED Decision to Admit Stat 11/23/20 05:32 Consult General Surgery Routine Ordered Studies 11/23/20 00:28 CT abd pelvis IV con only Urgent Hospital Course (1) Small bowel obstruction: Presented with high-grade small bowel obstruction, probably adhesional. Due to high-grade obstruction, surgery consulted. Fortunately with conservative care he improved quite quickly. He is now tolerating a regular diet and is stable for home. We discussed the potential for recurrence, and he expresses un derstanding of this. That said he looks well feels well, had no indications for surgery, and is stable for home. He had an uneventful hospital stay, and we would recommend following up with his PCP. Total Time Total Time Spent Total Time Spent (In Minutes): <30 Discharge Plan Discharge Items Patient Disposition: Home - Self-Care Reason For Visit: SBO Discharge Diagnosis: Small bowel obstruction Activity: Resume your previous activity Non-emergency contact: Primary Care Provider Call non-emergency contact if: you have any medication questions, your symptoms worsen and your temperature is above 101.5 Follow-up/Referrals: Wilner Allen MD [Primary Care Provider] - [place] Attending Provider Instructions: Care instructions: You were admitted to [facility] for treatment of small bowel obstruction. While hospitalized we provided you with nasogastric suctioning, until your normal bowel function resumed. Prior to discharge you had 2 daily bowel movements, and tolerated a regular diet. On discharge we recommend that you continue eating a low fiber diet, and monitor your bowel function. You can consider supplementing your diet with a stool softener such as MiraLAX. We recommend you monitor your symptoms, and should they worsen or recur we return for further evaluation and management. A discharge summary will be sent to your primary care physician to ensure continuity of care. Please bring this discharge summary with you to your next office appointment so that your provider can review it at that time. Follow-up appointments: - Keep all your follow-up appointments as already scheduled. If you cannot make an appointment, notify your provider. - Please call to request a follow-up appointment with your primary care physician within one week of discharge. Please let us know if you are unable to obtain an appointment Medications: - Your medication list has been reviewed and reconciled upon discharge to ensure accuracy and continuity of care. - You are provided with a list of all your current medications at this time. Please review this list closely and make note of any changes. - Please take all of your medications exactly as prescribed. - Tell your primary care provider if you cannot afford your medications. - Call your primary care provider if you are having any side effects or any other problems. - Call your primary care provider before taking any over the counter medications or supplements, including herbals and vitamins, because some of these may interact with your current medications and/or make your symptoms worse. Symptoms: Please call your primary care provider for symptoms including, but not limited to: fevers (temperatures greater than 100.4), chills, intractable nausea or vomiting, diarrhea, rash, shortness of breath, bleeding, pain, or if you experience any worsening of the symptoms that brought you to the hospital. For EMERGENCY and VERY SERIOUS health-related issues, such as chest pain, shortness of breath, or sudden onset of the symptoms that brought you to the hospital, you may need to call 911 or go directly to the Emergency Room It has been our privilege to take care of you during your hospital stay. And Above All Else Feel Better! Best Wishes, Antwan Reid MD PGY2 Resident, Family & Community Medicine [facility] - [address], [address] MC: [address] [place] [address] Pending Studies at Discharge: No Stand-Alone Forms: My [facility], Smoking Cessation Medications and DC Order Prescriptions: Continued ferrous sulfate [FeroSul] 325 mg (65 mg iron) tablet 650 mg PO Q OTHER DAY RF: 0 docusate sodium [Colace] 100 mg capsule 100 mg PO QAM RF: 0 cholecalciferol (vitamin D3) 50 mcg (2,000 unit) tablet 4,000 units PO QAM RF: 0 carvedilol 12.5 mg tablet 12.5 mg PO BID Qty: 60 RF: 11 (DME) Wheeled Walker Misc See Rx Instructions .MEDSUPPLY Qty: 1 RF: 0 mecobalamin (vitamin B12) 1,000 mcg tablet,disintegrating 500 mcg SL HS RF: 0 famotidine 20 mg tablet 20 mg PO HS RF: 0 losartan 100 mg tablet 100 mg PO QAM RF: 0 nitroglycerin [Nitrostat] 0.4 mg Tablet, Sublingual 0.4 mg sublingual Q5M PRN (Reason: chest pain) Qty: 30 RF: 0 clonidine HCl 0.1 mg tablet 0.1 mg PO DAILY PRN (Reason: Blood pressure > 190) Qty: 30 RF: 0 tamsulosin 0.4 mg capsule 0.4 mg PO QPM RF: 0 Discharge Orders: Discharge Order (Routine); Ordered 11/26/20 Ordered By: Antwan Reid Admission Data Admit Date/Time: 11/23/20 03:33 Attending Provider: Robel Stanley Admit Provider: Kemal Shaffer Primary Care Provider: Wilner Allen Other Providers: Kemal Shaffer ; Jim Newsome Other Interventions: Discharge Summary Assessment (RN) Last Done: 11/26/20 09:50 Coding Level of Care Code D/C Day Management <30 mins Diagnoses Small bowel obstruction K56.609
== END 2020-11-26 10:55 | disposition home or self-care (01) | DRG 390 ==
LOC: ED 22:58 → 3E 11-23 03:33 → SUATTDRO 11-23 03:33 → 3E 11-23 04:36

== ENCOUNTER 2023-11-13 08:41 | Observation (INO) ==
--- NOTE | 2023-11-13 09:07 | Emergency Department Note ---
Impression & Plan Chest pain, Hypertension ED Provider Note Diagnosis: Chest pain Disposition: Admit CHIEF COMPLAINT: Chest pain HPI: Patient is an 88-year-old male presenting with intermittent episodes of chest pain for the past 10 days time. Patient states that starts across his chest and goes to his shoulders bilaterally. Patient states that last for 1 minutes time and then goes away on its own. Patient states he was post to go play golf today but felt some pain dull substernally and wanted to come get checked out instead. Patient denies any active pain currently. Patient states he follows with his primary care physician regularly. Patient states he had an issue with swelling in his right lower extremity and had ultrasounds performed with no DVT found and he has been on water pills for it recently. Patient denies any previous heart attacks or cardiac catheterizations. Patient states he believes he had a stress test within the past 2 years time. 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 PAST MEDICAL HISTORY: See Below PAST SURGICAL HISTORY: See Below SOCIAL HISTORY: See Below HOME MEDICATIONS: See Below ALLERGIES: See Below VITALS: See Below PHYSICAL EXAMINATION: GENERAL: Well appearing, well nourished, NAD, non-toxic. EYE EXAM: Normal conjunctiva. OROPHARYNX: Moist mucus membranes. Grossly normal dentition. NECK: Supple, LUNGS: Clear to auscultation. Normal chest wall mechanics. HEART: NSR ABDOMEN: Abdomen soft, non-tender, normo-active bowel sounds, no masses, no rebound or guarding BACK: No CVA TTP. SKIN: No rashes and no bruising. UPPER EXTREMITIES: Upper extremities are grossly normal LOWER EXTREMITIES: Grossly normal, right lower extremity swelling NEURO EXAM: A&O x3,, normal speech, moves all 4 extremities PSYCH: Cooperative MEDICAL DECISION MAKING: Reviewed external documents: Cardiology office visit History obtained from: Patient ER Course: Patient is a 88-year-old male presenting with complaint of intermittent episodes of chest pain. Patient's symptoms have been ongoing for 1 to 2 weeks time. Patient chest pain-free upon arrival in the emergency room. Patient denies any previous heart attacks. Patient states he took all of his blood pressure medications this morning. EKG does not show any significant change from prior. Patient's troponins negative x 2. Patient's case discussed with his cardiology team who recommends admission for observation for further evaluation of his blood pressure and aortic stenosis. Labs (independently interpreted) are significant for: Negative troponins x 2 Imaging results (independently interpreted): Chest x-ray clear EKG interpretation (independently interpreted): Normal sinus rhythm bundle branch block, no ST segment elevation or depression Medications given: Aspirin Consultants: Drs. Barth of cardiology, recommends admission to medicine service for echocardiogram and better blood pressure control Chronic conditions affecting care: Aortic stenosis, hypertension Triage Nursing notes reviewed and agree them. Vital Signs: reviewed and remarkable for: no significant abnormalities Past Med/Surg History Medical History Lower urinary tract symptoms Cerumen impaction SDAT (senile dementia of Alzheimer's type) History of COVID-19 Dysphagia Stasis dermatitis of both legs Heart murmur Lumbar degenerative disc disease Erectile dysfunction GERD (gastroesophageal reflux disease) Aortic stenosis IBS (irritable bowel syndrome) Mitral regurgitation Tubular adenoma of colon Osteoarthritis Prostate cancer Malignant melanoma of skin of nose Hypertension Anemia Bowel obstruction Duodenal ulcer Surgical History History of removal of cyst History of repair of left rotator cuff History of surgical removal of pilonidal cyst History of colonoscopy History of esophagogastroduodenoscopy (EGD) History of Mohs micrographic surgery for skin cancer History of prostate biopsy History of bilateral cataract extraction History of appendectomy History of eyelid surgery History of bowel resection Family History Grandfather No problems noted. Grandmother No problems noted. Grandfather No problems noted. Grandmother No problems noted. Father No problems noted. Sister No problems noted. Brother No problems noted. Brother Stomach cancer Sister No problems noted. Sister No problems noted. Son Age: 65 No problems noted. Daughter Age: 56 No problems noted. Son Age: 61 No problems noted. Son Age: 55 No problems noted. 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 Required: No Beliefs That Will Affect Care: None marital status: / Current Living Situation: Alone Current Living Situation Comment: in 2020 current occupational status: retired How many Children do You have: 4 Feels Safe at Home: Yes Childhood Exposure to Second-Hand Smoke: Yes Diet: low salt and other Diet Comment: low fiber caffeine: Yes (3 cups a day) during the past year weight has: remained stable Dental Care, Regularly: Yes Physical Activity Frequency: Does not Exercise Seatbelt Use: always Sunscreen Use: No Assistive Devices: Glasses Allergies Allergies Allergy/AdvReac Type Severity Reaction Status Date / Time penicillin G Allergy Unknown "YEARS Verified 10/09/23 13:56 AGO" - UNKNOWN Sulfa (Sulfonamide Allergy Unknown "YEARS Verified 10/09/23 13:56 Antibiotics) AGO" UNKNOWN REACTION Home Meds Home Medications Medication Instructions Recorded Confirmed ferrous sulfate 325 mg (65 mg 650 mg PO Q OTHER DAY 10/10/18 11/13/23 iron) tablet (FeroSul) mecobalamin (vitamin B12) 1,000 500 mcg sublingual HS 02/16/20 11/13/23 mcg disintegrating tablet,sublingual cholecalciferol (vitamin D3) 50 2,000 unit PO QAM 11/08/22 11/13/23 mcg (2,000 unit) tablet pantoprazole 40 mg tablet,delayed 40 mg PO DAILY 12/11/22 11/13/23 release cholestyramine (with sugar) 4 gram See Rx Instructions .Route 12/14/22 11/13/23 powder for susp in a packet .COMPLEX PRN Diarrhea clonidine HCl 0.2 mg tablet 0.2 mg PO BID 10/04/23 11/13/23 furosemide 40 mg tablet 20 mg PO UD 11/13/23 11/13/23 Previous Rx's Medication Instructions Recorded losartan 100 mg tablet 100 mg PO DAILY #90 tabs 12/18/22 carvedilol 25 mg tablet 25 mg PO BID #180 tabs 04/18/23 nystatin-triamcinolone 100,000 1 applic topical BID #15 grams 09/20/23 unit/g-0.1 % topical cream tamsulosin 0.4 mg capsule 0.4 mg PO DAILY #90 caps 09/20/23 Results & Data (ED) Vital Signs Vital Signs - 24 hr 11/13/23 08:44 11/13/23 09:00 11/13/23 09:12 Temperature 36.9 C Temperature Source Temporal Artery Scan Pulse Rate 66 Pulse Rate [Apical] 63 Pulse Rate from SpO2 Sensor Pulse Rhythm [Apical] Regular Respiratory Rate 18 15 Respiratory Effort / Characteristics Non-Labored Spontaneous Respiratory Depth Normal Blood Pressure 209/92 H Blood Pressure [Left Arm] 218/107 H Blood Pressure Mean 131 Blood Pressure Mean [Left Arm] 144 Blood Pressure Position Sitting Pulse Oximetry 99 100 99 Oxygen Delivery Method Room Air Room Air Room Air Oxygen Flow Rate 0 Sepsis Recent Fever Within 48 Hours No Sepsis New/Unexplained Change in Mental Status N/A Sepsis Action Taken by Nursing No Action Required 11/13/23 09:18 11/13/23 09:18 11/13/23 09:20 Temperature Temperature Source Pulse Rate 61 61 Pulse Rate [Apical] Pulse Rate from SpO2 Sensor 61 61 Pulse Rhythm [Apical] Respiratory Rate 24 17 Respiratory Effort / Characteristics Respiratory Depth Blood Pressure 209/96 H Blood Pressure [Left Arm] Blood Pressure Mean 123 Blood Pressure Mean [Left Arm] Blood Pressure Position Pulse Oximetry 99 100 Oxygen Delivery Method Oxygen Flow Rate Sepsis Recent Fever Within 48 Hours Sepsis New/Unexplained Change in Mental Status Sepsis Action Taken by Nursing 11/13/23 09:26 11/13/23 09:30 11/13/23 09:40 Temperature Temperature Source Pulse Rate 62 65 56 L Pulse Rate [Apical] Pulse Rate from SpO2 Sensor 65 Pulse Rhythm [Apical] Respiratory Rate 26 H 16 Respiratory Effort / Characteristics Respiratory Depth Blood Pressure Blood Pressure [Left Arm] Blood Pressure Mean Blood Pressure Mean [Left Arm] Blood Pressure Position Pulse Oximetry 100 Oxygen Delivery Method Oxygen Flow Rate Sepsis Recent Fever Within 48 Hours Sepsis New/Unexplained Change in Mental Status Sepsis Action Taken by Nursing 11/13/23 09:50 11/13/23 10:00 11/13/23 10:10 Temperature Temperature Source Pulse Rate 53 L 52 L 51 L Pulse Rate [Apical] Pulse Rate from SpO2 Sensor Pulse Rhythm [Apical] Respiratory Rate 22 27 H 16 Respiratory Effort / Characteristics Respiratory Depth Blood Pressure Blood Pressure [Left Arm] Blood Pressure Mean Blood Pressure Mean [Left Arm] Blood Pressure Position Pulse Oximetry Oxygen Delivery Method Oxygen Flow Rate Sepsis Recent Fever Within 48 Hours Sepsis New/Unexplained Change in Mental Status Sepsis Action Taken by Nursing 11/13/23 10:20 11/13/23 12:29 Temperature Temperature Source Pulse Rate 52 L Pulse Rate [Apical] 53 L Pulse Rate from SpO2 Sensor Pulse Rhythm [Apical] Respiratory Rate 17 15 Respiratory Effort / Characteristics Respiratory Depth Blood Pressure Blood Pressure [Left Arm] 202/89 H Blood Pressure Mean Blood Pressure Mean [Left Arm] 126 Blood Pressure Position Pulse Oximetry Oxygen Delivery Method Oxygen Flow Rate Sepsis Recent Fever Within 48 Hours Sepsis New/Unexplained Change in Mental Status Sepsis Action Taken by Nursing Laboratory Data 11/13/23 08:55 11/13/23 08:55 Lab Results 11/13/23 11/13/23 11/13/23 Range/Units 08:55 08:55 08:55 WBC Cancelled Cancelled 4.78 L RBC Cancelled Hgb Hct MCV MCH MCHC RDW Std Deviation RDW Coeff of Victor Hugo Plt Count MPV Immature Gran % (Auto) Neut % (Auto) Lymph % (Auto) Kaufman % (Auto) Eos % (Auto) Baso % (Auto) Neut # (Auto) Lymph # (Auto) Kaufman # (Auto) Eos # (Auto) Baso # (Auto) Immature Gran # (Auto) Absolute Nucleated RBC Nucleated RBC % (auto) Neutrophils % (Manual) Band Neutrophils % Lymphocytes % (Manual) Prolymphocyte % Reactive Lymphs % (Man) Monocytes % (Manual) Eosinophils % (Manual) Basophils % (Manual) Metamyelocytes % (Man) Myelocytes % (Man) Promyelocytes % (Man) Blast Cells % (Manual) Plasma Cell % (Manual) Other Cells % Nucleated RBC % Neutrophils # (Manual) Band Neutrophils # Total Absolute Neuts Lymphocytes # (Manual) Prolymphocyte # Reactive Lymphs # Total Abs Lymphocytes Monocytes # (Manual) Eosinophils # (Manual) Basophils # (Manual) Metamyelocytes # (Man) Myelocytes # (Manual) Promyelocytes # (Man) Blast Cells # (Man) Plasma Cell # (Manual) Other Cells # Nucleated RBCs # (Man) Hypersegmented Neuts Hyposegmented Neuts Hypogranular Neuts Large Granular Lymphs # Lrg Granular Lymphs Hairy Cells Smudge Cells Toxic Granulation Toxic Vacuolation Dohle Bodies Terese Rods Platelet Estimate Hypogranular Platelets Giant Platelets Platelet Satelliting RBC Morphology Polychromasia Hypochromasia Poikilocytosis Basophilic Stippling Anisocytosis Microcytosis Macrocytosis Spherocytes Pappenheimer Bodies Sickle Cells Target Cells Tear Drop Cells Ovalocytes Stomatocytes Lawson-Parmele Bodies Echinocytes Acanthocytes (Spur) Rouleaux RBC Agglutinates Schistocytes Sezary Cell Sodium (136-145) mmol/L Potassium (3.5-5.1) mmol/L Chloride (98-107) mmol/L Carbon Dioxide (21-32) mmol/L Anion Gap (3-11) BUN (6-23) mg/dl Creatinine (0.6-1.4) mg/dl Est Cr Clr Drug Dosing ml/min Est GFR ( Amer) ml/min Est GFR (Non-Af Amer) ml/min BUN/Creatinine Ratio (10-20) Glucose (70-99(Fasting)) mg/dl Calcium (8.6-10.3) mg/dl Total Bilirubin (0.2-1.0) mg/dl AST (13-39) U/L ALT (7-52) U/L Alkaline Phosphatase (34-104) U/L Troponin I High Sens (0-20) pg/ml B-Natriuretic Peptide (0-100) pg/ml Total Protein (6.0-8.3) gm/dl Albumin (3.4-5.0) gm/dl Globulin (2.5-4.0) gm/dl Albumin/Globulin Ratio (0.9-2) Lipase (11-82) U/L Blood Parasites ID 11/13/23 11/13/23 11/13/23 Range/Units 08:55 08:55 08:55 WBC RBC Cancelled 4.05 L Hgb Cancelled Cancelled Hct MCV MCH MCHC RDW Std Deviation RDW Coeff of Victor Hugo Plt Count MPV Immature Gran % (Auto) Neut % (Auto) Lymph % (Auto) Kaufman % (Auto) Eos % (Auto) Baso % (Auto) Neut # (Auto) Lymph # (Auto) Kaufman # (Auto) Eos # (Auto) Baso # (Auto) Immature Gran # (Auto) Absolute Nucleated RBC Nucleated RBC % (auto) Neutrophils % (Manual) Band Neutrophils % Lymphocytes % (Manual) Prolymphocyte % Reactive Lymphs % (Man) Monocytes % (Manual) Eosinophils % (Manual) Basophils % (Manual) Metamyelocytes % (Man) Myelocytes % (Man) Promyelocytes % (Man) Blast Cells % (Manual) Plasma Cell % (Manual) Other Cells % Nucleated RBC % Neutrophils # (Manual) Band Neutrophils # Total Absolute Neuts Lymphocytes # (Manual) Prolymphocyte # Reactive Lymphs # Total Abs Lymphocytes Monocytes # (Manual) Eosinophils # (Manual) Basophils # (Manual) Metamyelocytes # (Man) Myelocytes # (Manual) Promyelocytes # (Man) Blast Cells # (Man) Plasma Cell # (Manual) Other Cells # Nucleated RBCs # (Man) Hypersegmented Neuts Hyposegmented Neuts Hypogranular Neuts Large Granular Lymphs # Lrg Granular Lymphs Hairy Cells Smudge Cells Toxic Granulation Toxic Vacuolation Dohle Bodies Terese Rods Platelet Estimate Hypogranular Platelets Giant Platelets Platelet Satelliting RBC Morphology Polychromasia Hypochromasia Poikilocytosis Basophilic Stippling Anisocytosis Microcytosis Macrocytosis Spherocytes Pappenheimer Bodies Sickle Cells Target Cells Tear Drop Cells Ovalocytes Stomatocytes Lawson-Parmele Bodies Echinocytes Acanthocytes (Spur) Rouleaux RBC Agglutinates Schistocytes Sezary Cell Sodium (136-145) mmol/L Potassium (3.5-5.1) mmol/L Chloride (98-107) mmol/L Carbon Dioxide (21-32) mmol/L Anion Gap (3-11) BUN (6-23) mg/dl Creatinine (0.6-1.4) mg/dl Est Cr Clr Drug Dosing ml/min Est GFR ( Amer) ml/min Est GFR (Non-Af Amer) ml/min BUN/Creatinine Ratio (10-20) Glucose (70-99(Fasting)) mg/dl Calcium (8.6-10.3) mg/dl Total Bilirubin (0.2-1.0) mg/dl AST (13-39) U/L ALT (7-52) U/L Alkaline Phosphatase (34-104) U/L Troponin I High Sens (0-20) pg/ml B-Natriuretic Peptide (0-100) pg/ml Total Protein (6.0-8.3) gm/dl Albumin (3.4-5.0) gm/dl Globulin (2.5-4.0) gm/dl Albumin/Globulin Ratio (0.9-2) Lipase (11-82) U/L Blood Parasites ID 11/13/23 11/13/23 11/13/23 Range/Units 08:55 08:55 08:55 WBC RBC Hgb 11.0 L Hct Cancelled Cancelled 35.8 L MCV Cancelled MCH MCHC RDW Std Deviation RDW Coeff of Victor Hugo Plt Count MPV Immature Gran % (Auto) Neut % (Auto) Lymph % (Auto) Kaufman % (Auto) Eos % (Auto) Baso % (Auto) Neut # (Auto) Lymph # (Auto) Kaufman # (Auto) Eos # (Auto) Baso # (Auto) Immature Gran # (Auto) Absolute Nucleated RBC Nucleated RBC % (auto) Neutrophils % (Manual) Band Neutrophils % Lymphocytes % (Manual) Prolymphocyte % Reactive Lymphs % (Man) Monocytes % (Manual) Eosinophils % (Manual) Basophils % (Manual) Metamyelocytes % (Man) Myelocytes % (Man) Promyelocytes % (Man) Blast Cells % (Manual) Plasma Cell % (Manual) Other Cells % Nucleated RBC % Neutrophils # (Manual) Band Neutrophils # Total Absolute Neuts Lymphocytes # (Manual) Prolymphocyte # Reactive Lymphs # Total Abs Lymphocytes Monocytes # (Manual) Eosinophils # (Manual) Basophils # (Manual) Metamyelocytes # (Man) Myelocytes # (Manual) Promyelocytes # (Man) Blast Cells # (Man) Plasma Cell # (Manual) Other Cells # Nucleated RBCs # (Man) Hypersegmented Neuts Hyposegmented Neuts Hypogranular Neuts Large Granular Lymphs # Lrg Granular Lymphs Hairy Cells Smudge Cells Toxic Granulation Toxic Vacuolation Dohle Bodies Terese Rods Platelet Estimate Hypogranular Platelets Giant Platelets Platelet Satelliting RBC Morphology Polychromasia Hypochromasia Poikilocytosis Basophilic Stippling Anisocytosis Microcytosis Macrocytosis Spherocytes Pappenheimer Bodies Sickle Cells Target Cells Tear Drop Cells Ovalocytes Stomatocytes Lawson-Parmele Bodies Echinocytes Acanthocytes (Spur) Rouleaux RBC Agglutinates Schistocytes Sezary Cell Sodium (136-145) mmol/L Potassium (3.5-5.1) mmol/L Chloride (98-107) mmol/L Carbon Dioxide (21-32) mmol/L Anion Gap (3-11) BUN (6-23) mg/dl Creatinine (0.6-1.4) mg/dl Est Cr Clr Drug Dosing ml/min Est GFR ( Amer) ml/min Est GFR (Non-Af Amer) ml/min BUN/Creatinine Ratio (10-20) Glucose (70-99(Fasting)) mg/dl Calcium (8.6-10.3) mg/dl Total Bilirubin (0.2-1.0) mg/dl AST (13-39) U/L ALT (7-52) U/L Alkaline Phosphatase (34-104) U/L Troponin I High Sens (0-20) pg/ml B-Natriuretic Peptide (0-100) pg/ml Total Protein (6.0-8.3) gm/dl Albumin (3.4-5.0) gm/dl Globulin (2.5-4.0) gm/dl Albumin/Globulin Ratio (0.9-2) Lipase (11-82) U/L Blood Parasites ID 11/13/23 11/13/23 11/13/23 Range/Units 08:55 08:55 08:55 WBC RBC Hgb Hct MCV Cancelled 88.4 MCH Cancelled Cancelled MCHC RDW Std Deviation RDW Coeff of Victor Hugo Plt Count MPV Immature Gran % (Auto) Neut % (Auto) Lymph % (Auto) Kaufman % (Auto) Eos % (Auto) Baso % (Auto) Neut # (Auto) Lymph # (Auto) Kaufman # (Auto) Eos # (Auto) Baso # (Auto) Immature Gran # (Auto) Absolute Nucleated RBC Nucleated RBC % (auto) Neutrophils % (Manual) Band Neutrophils % Lymphocytes % (Manual) Prolymphocyte % Reactive Lymphs % (Man) Monocytes % (Manual) Eosinophils % (Manual) Basophils % (Manual) Metamyelocytes % (Man) Myelocytes % (Man) Promyelocytes % (Man) Blast Cells % (Manual) Plasma Cell % (Manual) Other Cells % Nucleated RBC % Neutrophils # (Manual) Band Neutrophils # Total Absolute Neuts Lymphocytes # (Manual) Prolymphocyte # Reactive Lymphs # Total Abs Lymphocytes Monocytes # (Manual) Eosinophils # (Manual) Basophils # (Manual) Metamyelocytes # (Man) Myelocytes # (Manual) Promyelocytes # (Man) Blast Cells # (Man) Plasma Cell # (Manual) Other Cells # Nucleated RBCs # (Man) Hypersegmented Neuts Hyposegmented Neuts Hypogranular Neuts Large Granular Lymphs # Lrg Granular Lymphs Hairy Cells Smudge Cells Toxic Granulation Toxic Vacuolation Dohle Bodies Terese Rods Platelet Estimate Hypogranular Platelets Giant Platelets Platelet Satelliting RBC Morphology Polychromasia Hypochromasia Poikilocytosis Basophilic Stippling Anisocytosis Microcytosis Macrocytosis Spherocytes Pappenheimer Bodies Sickle Cells Target Cells Tear Drop Cells Ovalocytes Stomatocytes Lawson-Parmele Bodies Echinocytes Acanthocytes (Spur) Rouleaux RBC Agglutinates Schistocytes Sezary Cell Sodium (136-145) mmol/L Potassium (3.5-5.1) mmol/L Chloride (98-107) mmol/L Carbon Dioxide (21-32) mmol/L Anion Gap (3-11) BUN (6-23) mg/dl Creatinine (0.6-1.4) mg/dl Est Cr Clr Drug Dosing ml/min Est GFR ( Amer) ml/min Est GFR (Non-Af Amer) ml/min BUN/Creatinine Ratio (10-20) Glucose (70-99(Fasting)) mg/dl Calcium (8.6-10.3) mg/dl Total Bilirubin (0.2-1.0) mg/dl AST (13-39) U/L ALT (7-52) U/L Alkaline Phosphatase (34-104) U/L Troponin I High Sens (0-20) pg/ml B-Natriuretic Peptide (0-100) pg/ml Total Protein (6.0-8.3) gm/dl Albumin (3.4-5.0) gm/dl Globulin (2.5-4.0) gm/dl Albumin/Globulin Ratio (0.9-2) Lipase (11-82) U/L Blood Parasites ID 11/13/23 11/13/23 11/13/23 Range/Units 08:55 08:55 08:55 WBC RBC Hgb Hct MCV MCH 27.2 MCHC Cancelled Cancelled 30.7 L RDW Std Deviation Cancelled RDW Coeff of Victor Hugo Plt Count MPV Immature Gran % (Auto) Neut % (Auto) Lymph % (Auto) Kaufman % (Auto) Eos % (Auto) Baso % (Auto) Neut # (Auto) Lymph # (Auto) Kaufman # (Auto) Eos # (Auto) Baso # (Auto) Immature Gran # (Auto) Absolute Nucleated RBC Nucleated RBC % (auto) Neutrophils % (Manual) Band Neutrophils % Lymphocytes % (Manual) Prolymphocyte % Reactive Lymphs % (Man) Monocytes % (Manual) Eosinophils % (Manual) Basophils % (Manual) Metamyelocytes % (Man) Myelocytes % (Man) Promyelocytes % (Man) Blast Cells % (Manual) Plasma Cell % (Manual) Other Cells % Nucleated RBC % Neutrophils # (Manual) Band Neutrophils # Total Absolute Neuts Lymphocytes # (Manual) Prolymphocyte # Reactive Lymphs # Total Abs Lymphocytes Monocytes # (Manual) Eosinophils # (Manual) Basophils # (Manual) Metamyelocytes # (Man) Myelocytes # (Manual) Promyelocytes # (Man) Blast Cells # (Man) Plasma Cell # (Manual) Other Cells # Nucleated RBCs # (Man) Hypersegmented Neuts Hyposegmented Neuts Hypogranular Neuts Large Granular Lymphs # Lrg Granular Lymphs Hairy Cells Smudge Cells Toxic Granulation Toxic Vacuolation Dohle Bodies Terese Rods Platelet Estimate Hypogranular Platelets Giant Platelets Platelet Satelliting RBC Morphology Polychromasia Hypochromasia Poikilocytosis Basophilic Stippling Anisocytosis Microcytosis Macrocytosis Spherocytes Pappenheimer Bodies Sickle Cells Target Cells Tear Drop Cells Ovalocytes Stomatocytes Lawson-Parmele Bodies Echinocytes Acanthocytes (Spur) Rouleaux RBC Agglutinates Schistocytes Sezary Cell Sodium (136-145) mmol/L Potassium (3.5-5.1) mmol/L Chloride (98-107) mmol/L Carbon Dioxide (21-32) mmol/L Anion Gap (3-11) BUN (6-23) mg/dl Creatinine (0.6-1.4) mg/dl Est Cr Clr Drug Dosing ml/min Est GFR ( Amer) ml/min Est GFR (Non-Af Amer) ml/min BUN/Creatinine Ratio (10-20) Glucose (70-99(Fasting)) mg/dl Calcium (8.6-10.3) mg/dl Total Bilirubin (0.2-1.0) mg/dl AST (13-39) U/L ALT (7-52) U/L Alkaline Phosphatase (34-104) U/L Troponin I High Sens (0-20) pg/ml B-Natriuretic Peptide (0-100) pg/ml Total Protein (6.0-8.3) gm/dl Albumin (3.4-5.0) gm/dl Globulin (2.5-4.0) gm/dl Albumin/Globulin Ratio (0.9-2) Lipase (11-82) U/L Blood Parasites ID 11/13/23 11/13/23 11/13/23 Range/Units 08:55 08:55 08:55 WBC RBC Hgb Hct MCV MCH MCHC RDW Std Deviation Cancelled 46.7 H RDW Coeff of Victor Hugo Cancelled Cancelled Plt Count MPV Immature Gran % (Auto) Neut % (Auto) Lymph % (Auto) Kaufman % (Auto) Eos % (Auto) Baso % (Auto) Neut # (Auto) Lymph # (Auto) Kaufman # (Auto) Eos # (Auto) Baso # (Auto) Immature Gran # (Auto) Absolute Nucleated RBC Nucleated RBC % (auto) Neutrophils % (Manual) Band Neutrophils % Lymphocytes % (Manual) Prolymphocyte % Reactive Lymphs % (Man) Monocytes % (Manual) Eosinophils % (Manual) Basophils % (Manual) Metamyelocytes % (Man) Myelocytes % (Man) Promyelocytes % (Man) Blast Cells % (Manual) Plasma Cell % (Manual) Other Cells % Nucleated RBC % Neutrophils # (Manual) Band Neutrophils # Total Absolute Neuts Lymphocytes # (Manual) Prolymphocyte # Reactive Lymphs # Total Abs Lymphocytes Monocytes # (Manual) Eosinophils # (Manual) Basophils # (Manual) Metamyelocytes # (Man) Myelocytes # (Manual) Promyelocytes # (Man) Blast Cells # (Man) Plasma Cell # (Manual) Other Cells # Nucleated RBCs # (Man) Hypersegmented Neuts Hyposegmented Neuts Hypogranular Neuts Large Granular Lymphs # Lrg Granular Lymphs Hairy Cells Smudge Cells Toxic Granulation Toxic Vacuolation Dohle Bodies Terese Rods Platelet Estimate Hypogranular Platelets Giant Platelets Platelet Satelliting RBC Morphology Polychromasia Hypochromasia Poikilocytosis Basophilic Stippling Anisocytosis Microcytosis Macrocytosis Spherocytes Pappenheimer Bodies Sickle Cells Target Cells Tear Drop Cells Ovalocytes Stomatocytes Lawson-Parmele Bodies Echinocytes Acanthocytes (Spur) Rouleaux RBC Agglutinates Schistocytes Sezary Cell Sodium (136-145) mmol/L Potassium (3.5-5.1) mmol/L Chloride (98-107) mmol/L Carbon Dioxide (21-32) mmol/L Anion Gap (3-11) BUN (6-23) mg/dl Creatinine (0.6-1.4) mg/dl Est Cr Clr Drug Dosing ml/min Est GFR ( Amer) ml/min Est GFR (Non-Af Amer) ml/min BUN/Creatinine Ratio (10-20) Glucose (70-99(Fasting)) mg/dl Calcium (8.6-10.3) mg/dl Total Bilirubin (0.2-1.0) mg/dl AST (13-39) U/L ALT (7-52) U/L Alkaline Phosphatase (34-104) U/L Troponin I High Sens (0-20) pg/ml B-Natriuretic Peptide (0-100) pg/ml Total Protein (6.0-8.3) gm/dl Albumin (3.4-5.0) gm/dl Globulin (2.5-4.0) gm/dl Albumin/Globulin Ratio (0.9-2) Lipase (11-82) U/L Blood Parasites ID 11/13/23 11/13/23 11/13/23 Range/Units 08:55 08:55 08:55 WBC RBC Hgb Hct MCV MCH MCHC RDW Std Deviation RDW Coeff of Victor Hugo 14.7 H Plt Count Cancelled Cancelled 189 MPV Cancelled Immature Gran % (Auto) Neut % (Auto) Lymph % (Auto) Kaufman % (Auto) Eos % (Auto) Baso % (Auto) Neut # (Auto) Lymph # (Auto) [place] # (Auto) Eos # (Auto) Baso # (Auto) Immature Gran # (Auto) Absolute Nucleated RBC Nucleated RBC % (auto) Neutrophils % (Manual) Band Neutrophils % Lymphocytes % (Manual) Prolymphocyte % Reactive Lymphs % (Man) Monocytes % (Manual) Eosinophils % (Manual) Basophils % (Manual) Metamyelocytes % (Man) Myelocytes % (Man) Promyelocytes % (Man) Blast Cells % (Manual) Plasma Cell % (Manual) Other Cells % Nucleated RBC % Neutrophils # (Manual) Band Neutrophils # Total Absolute Neuts Lymphocytes # (Manual) Prolymphocyte # Reactive Lymphs # Total Abs Lymphocytes Monocytes # (Manual) Eosinophils # (Manual) Basophils # (Manual) Metamyelocytes # (Man) Myelocytes # (Manual) Promyelocytes # (Man) Blast Cells # (Man) Plasma Cell # (Manual) Other Cells # Nucleated RBCs # (Man) Hypersegmented Neuts Hyposegmented Neuts Hypogranular Neuts Large Granular Lymphs # Lrg Granular Lymphs Hairy Cells Smudge Cells Toxic Granulation Toxic Vacuolation Dohle Bodies Terese Rods Platelet Estimate Hypogranular Platelets Giant Platelets Platelet Satelliting RBC Morphology Polychromasia Hypochromasia Poikilocytosis Basophilic Stippling Anisocytosis Microcytosis Macrocytosis Spherocytes Pappenheimer Bodies Sickle Cells Target Cells Tear Drop Cells Ovalocytes Stomatocytes Lawson-Parmele Bodies Echinocytes Acanthocytes (Spur) Rouleaux RBC Agglutinates Schistocytes Sezary Cell Sodium (136-145) mmol/L Potassium (3.5-5.1) mmol/L Chloride (98-107) mmol/L Carbon Dioxide (21-32) mmol/L Anion Gap (3-11) BUN (6-23) mg/dl Creatinine (0.6-1.4) mg/dl Est Cr Clr Drug Dosing ml/min Est GFR ( Amer) ml/min Est GFR (Non-Af Amer) ml/min BUN/Creatinine Ratio (10-20) Glucose (70-99(Fasting)) mg/dl Calcium (8.6-10.3) mg/dl Total Bilirubin (0.2-1.0) mg/dl AST (13-39) U/L ALT (7-52) U/L Alkaline Phosphatase (34-104) U/L Troponin I High Sens (0-20) pg/ml B-Natriuretic Peptide (0-100) pg/ml Total Protein (6.0-8.3) gm/dl Albumin (3.4-5.0) gm/dl Globulin (2.5-4.0) gm/dl Albumin/Globulin Ratio (0.9-2) Lipase (11-82) U/L Blood Parasites ID 11/13/23 11/13/23 11/13/23 Range/Units 08:55 08:55 08:55 WBC RBC Hgb Hct MCV MCH MCHC RDW Std Deviation RDW Coeff of Victor Hugo Plt Count MPV Cancelled 11.0 Immature Gran % (Auto) Cancelled Cancelled Neut % (Auto) Lymph % (Auto) Kaufman % (Auto) Eos % (Auto) Baso % (Auto) Neut # (Auto) Lymph # (Auto) [place] # (Auto) Eos # (Auto) Baso # (Auto) Immature Gran # (Auto) Absolute Nucleated RBC Nucleated RBC % (auto) Neutrophils % (Manual) Band Neutrophils % Lymphocytes % (Manual) Prolymphocyte % Reactive Lymphs % (Man) Monocytes % (Manual) Eosinophils % (Manual) Basophils % (Manual) Metamyelocytes % (Man) Myelocytes % (Man) Promyelocytes % (Man) Blast Cells % (Manual) Plasma Cell % (Manual) Other Cells % Nucleated RBC % Neutrophils # (Manual) Band Neutrophils # Total Absolute Neuts Lymphocytes # (Manual) Prolymphocyte # Reactive Lymphs # Total Abs Lymphocytes Monocytes # (Manual) Eosinophils # (Manual) Basophils # (Manual) Metamyelocytes # (Man) Myelocytes # (Manual) Promyelocytes # (Man) Blast Cells # (Man) Plasma Cell # (Manual) Other Cells # Nucleated RBCs # (Man) Hypersegmented Neuts Hyposegmented Neuts Hypogranular Neuts Large Granular Lymphs # Lrg Granular Lymphs Hairy Cells Smudge Cells Toxic Granulation Toxic Vacuolation Dohle Bodies Terese Rods Platelet Estimate Hypogranular Platelets Giant Platelets Platelet Satelliting RBC Morphology Polychromasia Hypochromasia Poikilocytosis Basophilic Stippling Anisocytosis Microcytosis Macrocytosis Spherocytes Pappenheimer Bodies Sickle Cells Target Cells Tear Drop Cells Ovalocytes Stomatocytes Lawson-Parmele Bodies Echinocytes Acanthocytes (Spur) Rouleaux RBC Agglutinates Schistocytes Sezary Cell Sodium (136-145) mmol/L Potassium (3.5-5.1) mmol/L Chloride (98-107) mmol/L Carbon Dioxide (21-32) mmol/L Anion Gap (3-11) BUN (6-23) mg/dl Creatinine (0.6-1.4) mg/dl Est Cr Clr Drug Dosing ml/min Est GFR ( Amer) ml/min Est GFR (Non-Af Amer) ml/min BUN/Creatinine Ratio (10-20) Glucose (70-99(Fasting)) mg/dl Calcium (8.6-10.3) mg/dl Total Bilirubin (0.2-1.0) mg/dl AST (13-39) U/L ALT (7-52) U/L Alkaline Phosphatase (34-104) U/L Troponin I High Sens (0-20) pg/ml B-Natriuretic Peptide (0-100) pg/ml Total Protein (6.0-8.3) gm/dl Albumin (3.4-5.0) gm/dl Globulin (2.5-4.0) gm/dl Albumin/Globulin Ratio (0.9-2) Lipase (11-82) U/L Blood Parasites ID 11/13/23 11/13/23 11/13/23 Range/Units 08:55 08:55 08:55 WBC RBC Hgb Hct MCV MCH MCHC RDW Std Deviation RDW Coeff of Victor Hugo Plt Count MPV Immature Gran % (Auto) 0.4 Neut % (Auto) Cancelled Cancelled 71.3 Lymph % (Auto) Cancelled Kaufman % (Auto) Eos % (Auto) Baso % (Auto) Neut # (Auto) Lymph # (Auto) [place] # (Auto) Eos # (Auto) Baso # (Auto) Immature Gran # (Auto) Absolute Nucleated RBC Nucleated RBC % (auto) Neutrophils % (Manual) Band Neutrophils % Lymphocytes % (Manual) Prolymphocyte % Reactive Lymphs % (Man) Monocytes % (Manual) Eosinophils % (Manual) Basophils % (Manual) Metamyelocytes % (Man) Myelocytes % (Man) Promyelocytes % (Man) Blast Cells % (Manual) Plasma Cell % (Manual) Other Cells % Nucleated RBC % Neutrophils # (Manual) Band Neutrophils # Total Absolute Neuts Lymphocytes # (Manual) Prolymphocyte # Reactive Lymphs # Total Abs Lymphocytes Monocytes # (Manual) Eosinophils # (Manual) Basophils # (Manual) Metamyelocytes # (Man) Myelocytes # (Manual) Promyelocytes # (Man) Blast Cells # (Man) Plasma Cell # (Manual) Other Cells # Nucleated RBCs # (Man) Hypersegmented Neuts Hyposegmented Neuts Hypogranular Neuts Large Granular Lymphs # Lrg Granular Lymphs Hairy Cells Smudge Cells Toxic Granulation Toxic Vacuolation Dohle Bodies Terese Rods Platelet Estimate Hypogranular Platelets Giant Platelets Platelet Satelliting RBC Morphology Polychromasia Hypochromasia Poikilocytosis Basophilic Stippling Anisocytosis Microcytosis Macrocytosis Spherocytes Pappenheimer Bodies Sickle Cells Target Cells Tear Drop Cells Ovalocytes Stomatocytes Lawson-Parmele Bodies Echinocytes Acanthocytes (Spur) Rouleaux RBC Agglutinates Schistocytes Sezary Cell Sodium (136-145) mmol/L Potassium (3.5-5.1) mmol/L Chloride (98-107) mmol/L Carbon Dioxide (21-32) mmol/L Anion Gap (3-11) BUN (6-23) mg/dl Creatinine (0.6-1.4) mg/dl Est Cr Clr Drug Dosing ml/min Est GFR ( Amer) ml/min Est GFR (Non-Af Amer) ml/min BUN/Creatinine Ratio (10-20) Glucose (70-99(Fasting)) mg/dl Calcium (8.6-10.3) mg/dl Total Bilirubin (0.2-1.0) mg/dl AST (13-39) U/L ALT (7-52) U/L Alkaline Phosphatase (34-104) U/L Troponin I High Sens (0-20) pg/ml B-Natriuretic Peptide (0-100) pg/ml Total Protein (6.0-8.3) gm/dl Albumin (3.4-5.0) gm/dl Globulin (2.5-4.0) gm/dl Albumin/Globulin Ratio (0.9-2) Lipase (11-82) U/L Blood Parasites ID 11/13/23 11/13/23 11/13/23 Range/Units 08:55 08:55 08:55 WBC RBC Hgb Hct MCV MCH MCHC RDW Std Deviation RDW Coeff of Victor Hugo Plt Count MPV Immature Gran % (Auto) Neut % (Auto) Lymph % (Auto) Cancelled 15.5 [place] % (Auto) Cancelled Cancelled Eos % (Auto) Baso % (Auto) Neut # (Auto) Lymph # (Auto) [place]man # (Auto) Eos # (Auto) Baso # (Auto) Immature Gran # (Auto) Absolute Nucleated RBC Nucleated RBC % (auto) Neutrophils % (Manual) Band Neutrophils % Lymphocytes % (Manual) Prolymphocyte % Reactive Lymphs % (Man) Monocytes % (Manual) Eosinophils % (Manual) Basophils % (Manual) Metamyelocytes % (Man) Myelocytes % (Man) Promyelocytes % (Man) Blast Cells % (Manual) Plasma Cell % (Manual) Other Cells % Nucleated RBC % Neutrophils # (Manual) Band Neutrophils # Total Absolute Neuts Lymphocytes # (Manual) Prolymphocyte # Reactive Lymphs # Total Abs Lymphocytes Monocytes # (Manual) Eosinophils # (Manual) Basophils # (Manual) Metamyelocytes # (Man) Myelocytes # (Manual) Promyelocytes # (Man) Blast Cells # (Man) Plasma Cell # (Manual) Other Cells # Nucleated RBCs # (Man) Hypersegmented Neuts Hyposegmented Neuts Hypogranular Neuts Large Granular Lymphs # Lrg Granular Lymphs Hairy Cells Smudge Cells Toxic Granulation Toxic Vacuolation Dohle Bodies Terese Rods Platelet Estimate Hypogranular Platelets Giant Platelets Platelet Satelliting RBC Morphology Polychromasia Hypochromasia Poikilocytosis Basophilic Stippling Anisocytosis Microcytosis Macrocytosis Spherocytes Pappenheimer Bodies Sickle Cells Target Cells Tear Drop Cells Ovalocytes Stomatocytes Lawson-Parmele Bodies Echinocytes Acanthocytes (Spur) Rouleaux RBC Agglutinates Schistocytes Sezary Cell Sodium (136-145) mmol/L Potassium (3.5-5.1) mmol/L Chloride (98-107) mmol/L Carbon Dioxide (21-32) mmol/L Anion Gap (3-11) BUN (6-23) mg/dl Creatinine (0.6-1.4) mg/dl Est Cr Clr Drug Dosing ml/min Est GFR ( Amer) ml/min Est GFR (Non-Af Amer) ml/min BUN/Creatinine Ratio (10-20) Glucose (70-99(Fasting)) mg/dl Calcium (8.6-10.3) mg/dl Total Bilirubin (0.2-1.0) mg/dl AST (13-39) U/L ALT (7-52) U/L Alkaline Phosphatase (34-104) U/L Troponin I High Sens (0-20) pg/ml B-Natriuretic Peptide (0-100) pg/ml Total Protein (6.0-8.3) gm/dl Albumin (3.4-5.0) gm/dl Globulin (2.5-4.0) gm/dl Albumin/Globulin Ratio (0.9-2) Lipase (11-82) U/L Blood Parasites ID 11/13/23 11/13/23 11/13/23 Range/Units 08:55 08:55 08:55 WBC RBC Hgb Hct MCV MCH MCHC RDW Std Deviation RDW Coeff of Victor Hugo Plt Count MPV Immature Gran % (Auto) Neut % (Auto) Lymph % (Auto) Kaufman % (Auto) 10.9 Eos % (Auto) Cancelled Cancelled 1.5 Baso % (Auto) Cancelled Neut # (Auto) Lymph # (Auto) [place] # (Auto) Eos # (Auto) Baso # (Auto) Immature Gran # (Auto) Absolute Nucleated RBC Nucleated RBC % (auto) Neutrophils % (Manual) Band Neutrophils % Lymphocytes % (Manual) Prolymphocyte % Reactive Lymphs % (Man) Monocytes % (Manual) Eosinophils % (Manual) Basophils % (Manual) Metamyelocytes % (Man) Myelocytes % (Man) Promyelocytes % (Man) Blast Cells % (Manual) Plasma Cell % (Manual) Other Cells % Nucleated RBC % Neutrophils # (Manual) Band Neutrophils # Total Absolute Neuts Lymphocytes # (Manual) Prolymphocyte # Reactive Lymphs # Total Abs Lymphocytes Monocytes # (Manual) Eosinophils # (Manual) Basophils # (Manual) Metamyelocytes # (Man) Myelocytes # (Manual) Promyelocytes # (Man) Blast Cells # (Man) Plasma Cell # (Manual) Other Cells # Nucleated RBCs # (Man) Hypersegmented Neuts Hyposegmented Neuts Hypogranular Neuts Large Granular Lymphs # Lrg Granular Lymphs Hairy Cells Smudge Cells Toxic Granulation Toxic Vacuolation Dohle Bodies Terese Rods Platelet Estimate Hypogranular Platelets Giant Platelets Platelet Satelliting RBC Morphology Polychromasia Hypochromasia Poikilocytosis Basophilic Stippling Anisocytosis Microcytosis Macrocytosis Spherocytes Pappenheimer Bodies Sickle Cells Target Cells Tear Drop Cells Ovalocytes Stomatocytes Lawson-Parmele Bodies Echinocytes Acanthocytes (Spur) Rouleaux RBC Agglutinates Schistocytes Sezary Cell Sodium (136-145) mmol/L Potassium (3.5-5.1) mmol/L Chloride (98-107) mmol/L Carbon Dioxide (21-32) mmol/L Anion Gap (3-11) BUN (6-23) mg/dl Creatinine (0.6-1.4) mg/dl Est Cr Clr Drug Dosing ml/min Est GFR ( Amer) ml/min Est GFR (Non-Af Amer) ml/min BUN/Creatinine Ratio (10-20) Glucose (70-99(Fasting)) mg/dl Calcium (8.6-10.3) mg/dl Total Bilirubin (0.2-1.0) mg/dl AST (13-39) U/L ALT (7-52) U/L Alkaline Phosphatase (34-104) U/L Troponin I High Sens (0-20) pg/ml B-Natriuretic Peptide (0-100) pg/ml Total Protein (6.0-8.3) gm/dl Albumin (3.4-5.0) gm/dl Globulin (2.5-4.0) gm/dl Albumin/Globulin Ratio (0.9-2) Lipase (11-82) U/L Blood Parasites ID 11/13/23 11/13/23 11/13/23 Range/Units 08:55 08:55 08:55 WBC RBC Hgb Hct MCV MCH MCHC RDW Std Deviation RDW Coeff of Victor Hugo Plt Count MPV Immature Gran % (Auto) Neut % (Auto) Lymph % (Auto) [place] % (Auto) Eos % (Auto) Baso % (Auto) Cancelled 0.4 Neut # (Auto) Cancelled Cancelled Lymph # (Auto) [place] # (Auto) Eos # (Auto) Baso # (Auto) Immature Gran # (Auto) Absolute Nucleated RBC Nucleated RBC % (auto) Neutrophils % (Manual) Band Neutrophils % Lymphocytes % (Manual) Prolymphocyte % Reactive Lymphs % (Man) Monocytes % (Manual) Eosinophils % (Manual) Basophils % (Manual) Metamyelocytes % (Man) Myelocytes % (Man) Promyelocytes % (Man) Blast Cells % (Manual) Plasma Cell % (Manual) Other Cells % Nucleated RBC % Neutrophils # (Manual) Band Neutrophils # Total Absolute Neuts Lymphocytes # (Manual) Prolymphocyte # Reactive Lymphs # Total Abs Lymphocytes Monocytes # (Manual) Eosinophils # (Manual) Basophils # (Manual) Metamyelocytes # (Man) Myelocytes # (Manual) Promyelocytes # (Man) Blast Cells # (Man) Plasma Cell # (Manual) Other Cells # Nucleated RBCs # (Man) Hypersegmented Neuts Hyposegmented Neuts Hypogranular Neuts Large Granular Lymphs # Lrg Granular Lymphs Hairy Cells Smudge Cells Toxic Granulation Toxic Vacuolation Dohle Bodies Treese Rods Platelet Estimate Hypogranular Platelets Giant Platelets Platelet Satelliting RBC Morphology Polychromasia Hypochromasia Poikilocytosis Basophilic Stippling Anisocytosis Microcytosis Macrocytosis Spherocytes Pappenheimer Bodies Sickle Cells Target Cells Tear Drop Cells Ovalocytes Stomatocytes Lawson-Parmele Bodies Echinocytes Acanthocytes (Spur) Rouleaux RBC Agglutinates Schistocytes Sezary Cell Sodium (136-145) mmol/L Potassium (3.5-5.1) mmol/L Chloride (98-107) mmol/L Carbon Dioxide (21-32) mmol/L Anion Gap (3-11) BUN (6-23) mg/dl Creatinine (0.6-1.4) mg/dl Est Cr Clr Drug Dosing ml/min Est GFR ( Amer) ml/min Est GFR (Non-Af Amer) ml/min BUN/Creatinine Ratio (10-20) Glucose (70-99(Fasting)) mg/dl Calcium (8.6-10.3) mg/dl Total Bilirubin (0.2-1.0) mg/dl AST (13-39) U/L ALT (7-52) U/L Alkaline Phosphatase (34-104) U/L Troponin I High Sens (0-20) pg/ml B-Natriuretic Peptide (0-100) pg/ml Total Protein (6.0-8.3) gm/dl Albumin (3.4-5.0) gm/dl Globulin (2.5-4.0) gm/dl Albumin/Globulin Ratio (0.9-2) Lipase (11-82) U/L Blood Parasites ID 11/13/23 11/13/23 11/13/23 Range/Units 08:55 08:55 08:55 WBC RBC Hgb Hct MCV MCH MCHC RDW Std Deviation RDW Coeff of Victor Hugo Plt Count MPV Immature Gran % (Auto) Neut % (Auto) Lymph % (Auto) [place] % (Auto) Eos % (Auto) Baso % (Auto) Neut # (Auto) 3.41 Lymph # (Auto) Cancelled Cancelled 0.74 L [place] # (Auto) Cancelled Eos # (Auto) Baso # (Auto) Immature Gran # (Auto) Absolute Nucleated RBC Nucleated RBC % (auto) Neutrophils % (Manual) Band Neutrophils % Lymphocytes % (Manual) Prolymphocyte % Reactive Lymphs % (Man) Monocytes % (Manual) Eosinophils % (Manual) Basophils % (Manual) Metamyelocytes % (Man) Myelocytes % (Man) Promyelocytes % (Man) Blast Cells % (Manual) Plasma Cell % (Manual) Other Cells % Nucleated RBC % Neutrophils # (Manual) Band Neutrophils # Total Absolute Neuts Lymphocytes # (Manual) Prolymphocyte # Reactive Lymphs # Total Abs Lymphocytes Monocytes # (Manual) Eosinophils # (Manual) Basophils # (Manual) Metamyelocytes # (Man) Myelocytes # (Manual) Promyelocytes # (Man) Blast Cells # (Man) Plasma Cell # (Manual) Other Cells # Nucleated RBCs # (Man) Hypersegmented Neuts Hyposegmented Neuts Hypogranular Neuts Large Granular Lymphs # Lrg Granular Lymphs Hairy Cells Smudge Cells Toxic Granulation Toxic Vacuolation Dohle Bodies Terese Rods Platelet Estimate Hypogranular Platelets Giant Platelets Platelet Satelliting RBC Morphology Polychromasia Hypochromasia Poikilocytosis Basophilic Stippling Anisocytosis Microcytosis Macrocytosis Spherocytes Pappenheimer Bodies Sickle Cells Target Cells Tear Drop Cells Ovalocytes Stomatocytes Lawson-Parmele Bodies Echinocytes Acanthocytes (Spur) Rouleaux RBC Agglutinates Schistocytes Sezary Cell Sodium (136-145) mmol/L Potassium (3.5-5.1) mmol/L Chloride (98-107) mmol/L Carbon Dioxide (21-32) mmol/L Anion Gap (3-11) BUN (6-23) mg/dl Creatinine (0.6-1.4) mg/dl Est Cr Clr Drug Dosing ml/min Est GFR ( Amer) ml/min Est GFR (Non-Af Amer) ml/min BUN/Creatinine Ratio (10-20) Glucose (70-99(Fasting)) mg/dl Calcium (8.6-10.3) mg/dl Total Bilirubin (0.2-1.0) mg/dl AST (13-39) U/L ALT (7-52) U/L Alkaline Phosphatase (34-104) U/L Troponin I High Sens (0-20) pg/ml B-Natriuretic Peptide (0-100) pg/ml Total Protein (6.0-8.3) gm/dl Albumin (3.4-5.0) gm/dl Globulin (2.5-4.0) gm/dl Albumin/Globulin Ratio (0.9-2) Lipase (11-82) U/L Blood Parasites ID 11/13/23 11/13/23 11/13/23 Range/Units 08:55 08:55 08:55 WBC RBC Hgb Hct MCV MCH MCHC RDW Std Deviation RDW Coeff of Victor Hugo Plt Count MPV Immature Gran % (Auto) Neut % (Auto) Lymph % (Auto) [place] % (Auto) Eos % (Auto) Baso % (Auto) Neut # (Auto) Lymph # (Auto) [place] # (Auto) Cancelled 0.52 Eos # (Auto) Cancelled Cancelled Baso # (Auto) Immature Gran # (Auto) Absolute Nucleated RBC Nucleated RBC % (auto) Neutrophils % (Manual) Band Neutrophils % Lymphocytes % (Manual) Prolymphocyte % Reactive Lymphs % (Man) Monocytes % (Manual) Eosinophils % (Manual) Basophils % (Manual) Metamyelocytes % (Man) Myelocytes % (Man) Promyelocytes % (Man) Blast Cells % (Manual) Plasma Cell % (Manual) Other Cells % Nucleated RBC % Neutrophils # (Manual) Band Neutrophils # Total Absolute Neuts Lymphocytes # (Manual) Prolymphocyte # Reactive Lymphs # Total Abs Lymphocytes Monocytes # (Manual) Eosinophils # (Manual) Basophils # (Manual) Metamyelocytes # (Man) Myelocytes # (Manual) Promyelocytes # (Man) Blast Cells # (Man) Plasma Cell # (Manual) Other Cells # Nucleated RBCs # (Man) Hypersegmented Neuts Hyposegmented Neuts Hypogranular Neuts Large Granular Lymphs # Lrg Granular Lymphs Hairy Cells Smudge Cells Toxic Granulation Toxic Vacuolation Dohle Bodies Terese Rods Platelet Estimate Hypogranular Platelets Giant Platelets Platelet Satelliting RBC Morphology Polychromasia Hypochromasia Poikilocytosis Basophilic Stippling Anisocytosis Microcytosis Macrocytosis Spherocytes Pappenheimer Bodies Sickle Cells Target Cells Tear Drop Cells Ovalocytes Stomatocytes Lawson-Parmele Bodies Echinocytes Acanthocytes (Spur) Rouleaux RBC Agglutinates Schistocytes Sezary Cell Sodium (136-145) mmol/L Potassium (3.5-5.1) mmol/L Chloride (98-107) mmol/L Carbon Dioxide (21-32) mmol/L Anion Gap (3-11) BUN (6-23) mg/dl Creatinine (0.6-1.4) mg/dl Est Cr Clr Drug Dosing ml/min Est GFR ( Amer) ml/min Est GFR (Non-Af Amer) ml/min BUN/Creatinine Ratio (10-20) Glucose (70-99(Fasting)) mg/dl Calcium (8.6-10.3) mg/dl Total Bilirubin (0.2-1.0) mg/dl AST (13-39) U/L ALT (7-52) U/L Alkaline Phosphatase (34-104) U/L Troponin I High Sens (0-20) pg/ml B-Natriuretic Peptide (0-100) pg/ml Total Protein (6.0-8.3) gm/dl Albumin (3.4-5.0) gm/dl Globulin (2.5-4.0) gm/dl Albumin/Globulin Ratio (0.9-2) Lipase (11-82) U/L Blood Parasites ID 11/13/23 11/13/23 11/13/23 Range/Units 08:55 08:55 08:55 WBC RBC Hgb Hct MCV MCH MCHC RDW Std Deviation RDW Coeff of Victor Hugo Plt Count MPV Immature Gran % (Auto) Neut % (Auto) Lymph % (Auto) [place] % (Auto) Eos % (Auto) Baso % (Auto) Neut # (Auto) Lymph # (Auto) [place] # (Auto) Eos # (Auto) 0.07 Baso # (Auto) Cancelled Cancelled 0.02 Immature Gran # (Auto) Cancelled Absolute Nucleated RBC Nucleated RBC % (auto) Neutrophils % (Manual) Band Neutrophils % Lymphocytes % (Manual) Prolymphocyte % Reactive Lymphs % (Man) Monocytes % (Manual) Eosinophils % (Manual) Basophils % (Manual) Metamyelocytes % (Man) Myelocytes % (Man) Promyelocytes % (Man) Blast Cells % (Manual) Plasma Cell % (Manual) Other Cells % Nucleated RBC % Neutrophils # (Manual) Band Neutrophils # Total Absolute Neuts Lymphocytes # (Manual) Prolymphocyte # Reactive Lymphs # Total Abs Lymphocytes Monocytes # (Manual) Eosinophils # (Manual) Basophils # (Manual) Metamyelocytes # (Man) Myelocytes # (Manual) Promyelocytes # (Man) Blast Cells # (Man) Plasma Cell # (Manual) Other Cells # Nucleated RBCs # (Man) Hypersegmented Neuts Hyposegmented Neuts Hypogranular Neuts Large Granular Lymphs # Lrg Granular Lymphs Hairy Cells Smudge Cells Toxic Granulation Toxic Vacuolation Dohle Bodies Terese Rods Platelet Estimate Hypogranular Platelets Giant Platelets Platelet Satelliting RBC Morphology Polychromasia Hypochromasia Poikilocytosis Basophilic Stippling Anisocytosis Microcytosis Macrocytosis Spherocytes Pappenheimer Bodies Sickle Cells Target Cells Tear Drop Cells Ovalocytes Stomatocytes Lawson-Parmele Bodies Echinocytes Acanthocytes (Spur) Rouleaux RBC Agglutinates Schistocytes Sezary Cell Sodium (136-145) mmol/L Potassium (3.5-5.1) mmol/L Chloride (98-107) mmol/L Carbon Dioxide (21-32) mmol/L Anion Gap (3-11) BUN (6-23) mg/dl Creatinine (0.6-1.4) mg/dl Est Cr Clr Drug Dosing ml/min Est GFR ( Amer) ml/min Est GFR (Non-Af Amer) ml/min BUN/Creatinine Ratio (10-20) Glucose (70-99(Fasting)) mg/dl Calcium (8.6-10.3) mg/dl Total Bilirubin (0.2-1.0) mg/dl AST (13-39) U/L ALT (7-52) U/L Alkaline Phosphatase (34-104) U/L Troponin I High Sens (0-20) pg/ml B-Natriuretic Peptide (0-100) pg/ml Total Protein (6.0-8.3) gm/dl Albumin (3.4-5.0) gm/dl Globulin (2.5-4.0) gm/dl Albumin/Globulin Ratio (0.9-2) Lipase (11-82) U/L Blood Parasites ID 11/13/23 11/13/23 11/13/23 Range/Units 08:55 08:55 08:55 WBC RBC Hgb Hct MCV MCH MCHC RDW Std Deviation RDW Coeff of Victor Hugo Plt Count MPV Immature Gran % (Auto) Neut % (Auto) Lymph % (Auto) [place] % (Auto) Eos % (Auto) Baso % (Auto) Neut # (Auto) Lymph # (Auto) [place] # (Auto) Eos # (Auto) Baso # (Auto) Immature Gran # (Auto) Cancelled 0.02 Absolute Nucleated RBC Cancelled Cancelled Nucleated RBC % (auto) Cancelled Neutrophils % (Manual) Band Neutrophils % Lymphocytes % (Manual) Prolymphocyte % Reactive Lymphs % (Man) Monocytes % (Manual) Eosinophils % (Manual) Basophils % (Manual) Metamyelocytes % (Man) Myelocytes % (Man) Promyelocytes % (Man) Blast Cells % (Manual) Plasma Cell % (Manual) Other Cells % Nucleated RBC % Neutrophils # (Manual) Band Neutrophils # Total Absolute Neuts Lymphocytes # (Manual) Prolymphocyte # Reactive Lymphs # Total Abs Lymphocytes Monocytes # (Manual) Eosinophils # (Manual) Basophils # (Manual) Metamyelocytes # (Man) Myelocytes # (Manual) Promyelocytes # (Man) Blast Cells # (Man) Plasma Cell # (Manual) Other Cells # Nucleated RBCs # (Man) Hypersegmented Neuts Hyposegmented Neuts Hypogranular Neuts Large Granular Lymphs # Lrg Granular Lymphs Hairy Cells Smudge Cells Toxic Granulation Toxic Vacuolation Dohle Bodies Terese Rods Platelet Estimate Hypogranular Platelets Giant Platelets Platelet Satelliting RBC Morphology Polychromasia Hypochromasia Poikilocytosis Basophilic Stippling Anisocytosis Microcytosis Macrocytosis Spherocytes Pappenheimer Bodies Sickle Cells Target Cells Tear Drop Cells Ovalocytes Stomatocytes Lawson-Parmele Bodies Echinocytes Acanthocytes (Spur) Rouleaux RBC Agglutinates Schistocytes Sezary Cell Sodium (136-145) mmol/L Potassium (3.5-5.1) mmol/L Chloride (98-107) mmol/L Carbon Dioxide (21-32) mmol/L Anion Gap (3-11) BUN (6-23) mg/dl Creatinine (0.6-1.4) mg/dl Est Cr Clr Drug Dosing ml/min Est GFR ( Amer) ml/min Est GFR (Non-Af Amer) ml/min BUN/Creatinine Ratio (10-20) Glucose (70-99(Fasting)) mg/dl Calcium (8.6-10.3) mg/dl Total Bilirubin (0.2-1.0) mg/dl AST (13-39) U/L ALT (7-52) U/L Alkaline Phosphatase (34-104) U/L Troponin I High Sens (0-20) pg/ml B-Natriuretic Peptide (0-100) pg/ml Total Protein (6.0-8.3) gm/dl Albumin (3.4-5.0) gm/dl Globulin (2.5-4.0) gm/dl Albumin/Globulin Ratio (0.9-2) Lipase (11-82) U/L Blood Parasites ID 11/13/23 11/13/23 11/13/23 Range/Units 08:55 08:55 08:55 WBC RBC Hgb Hct MCV MCH MCHC RDW Std Deviation RDW Coeff of [place] Plt Count MPV Immature Gran % (Auto) Neut % (Auto) Lymph % (Auto) [place] % (Auto) Eos % (Auto) Baso % (Auto) Neut # (Auto) Lymph # (Auto) [place]man # (Auto) Eos # (Auto) Baso # (Auto) Immature Gran # (Auto) Absolute Nucleated RBC Nucleated RBC % (auto) Cancelled Neutrophils % (Manual) Cancelled Cancelled Band Neutrophils % Cancelled Cancelled Lymphocytes % (Manual) Cancelled Prolymphocyte % Reactive Lymphs % (Man) Monocytes % (Manual) Eosinophils % (Manual) Basophils % (Manual) Metamyelocytes % (Man) Myelocytes % (Man) Promyelocytes % (Man) Blast Cells % (Manual) Plasma Cell % (Manual) Other Cells % Nucleated RBC % Neutrophils # (Manual) Band Neutrophils # Total Absolute Neuts Lymphocytes # (Manual) Prolymphocyte # Reactive Lymphs # Total Abs Lymphocytes Monocytes # (Manual) Eosinophils # (Manual) Basophils # (Manual) Metamyelocytes # (Man) Myelocytes # (Manual) Promyelocytes # (Man) Blast Cells # (Man) Plasma Cell # (Manual) Other Cells # Nucleated RBCs # (Man) Hypersegmented Neuts Hyposegmented Neuts Hypogranular Neuts Large Granular Lymphs # Lrg Granular Lymphs Hairy Cells Smudge Cells Toxic Granulation Toxic Vacuolation Dohle Bodies Terese Rods Platelet Estimate Hypogranular Platelets Giant Platelets Platelet Satelliting RBC Morphology Polychromasia Hypochromasia Poikilocytosis Basophilic Stippling Anisocytosis Microcytosis Macrocytosis Spherocytes Pappenheimer Bodies Sickle Cells Target Cells Tear Drop Cells Ovalocytes Stomatocytes Lawson-Parmele Bodies Echinocytes Acanthocytes (Spur) Rouleaux RBC Agglutinates Schistocytes Sezary Cell Sodium (136-145) mmol/L Potassium (3.5-5.1) mmol/L Chloride (98-107) mmol/L Carbon Dioxide (21-32) mmol/L Anion Gap (3-11) BUN (6-23) mg/dl Creatinine (0.6-1.4) mg/dl Est Cr Clr Drug Dosing ml/min Est GFR ( Amer) ml/min Est GFR (Non-Af Amer) ml/min BUN/Creatinine Ratio (10-20) Glucose (70-99(Fasting)) mg/dl Calcium (8.6-10.3) mg/dl Total Bilirubin (0.2-1.0) mg/dl AST (13-39) U/L ALT (7-52) U/L Alkaline Phosphatase (34-104) U/L Troponin I High Sens (0-20) pg/ml B-Natriuretic Peptide (0-100) pg/ml Total Protein (6.0-8.3) gm/dl Albumin (3.4-5.0) gm/dl Globulin (2.5-4.0) gm/dl Albumin/Globulin Ratio (0.9-2) Lipase (11-82) U/L Blood Parasites ID 11/13/23 11/13/23 11/13/23 Range/Units 08:55 08:55 08:55 WBC RBC Hgb Hct MCV MCH MCHC RDW Std Deviation RDW Coeff of Victor Hugo Plt Count MPV Immature Gran % (Auto) Neut % (Auto) Lymph % (Auto) Kaufman % (Auto) Eos % (Auto) Baso % (Auto) Neut # (Auto) Lymph # (Auto) Kaufman # (Auto) Eos # (Auto) Baso # (Auto) Immature Gran # (Auto) Absolute Nucleated RBC Nucleated RBC % (auto) Neutrophils % (Manual) Band Neutrophils % Lymphocytes % (Manual) Cancelled Prolymphocyte % Cancelled Cancelled Reactive Lymphs % (Man) Cancelled Cancelled Monocytes % (Manual) Cancelled Eosinophils % (Manual) Basophils % (Manual) Metamyelocytes % (Man) Myelocytes % (Man) Promyelocytes % (Man) Blast Cells % (Manual) Plasma Cell % (Manual) Other Cells % Nucleated RBC % Neutrophils # (Manual) Band Neutrophils # Total Absolute Neuts Lymphocytes # (Manual) Prolymphocyte # Reactive Lymphs # Total Abs Lymphocytes Monocytes # (Manual) Eosinophils # (Manual) Basophils # (Manual) Metamyelocytes # (Man) Myelocytes # (Manual) Promyelocytes # (Man) Blast Cells # (Man) Plasma Cell # (Manual) Other Cells # Nucleated RBCs # (Man) Hypersegmented Neuts Hyposegmented Neuts Hypogranular Neuts Large Granular Lymphs # Lrg Granular Lymphs Hairy Cells Smudge Cells Toxic Granulation Toxic Vacuolation Dohle Bodies Terese Rods Platelet Estimate Hypogranular Platelets Giant Platelets Platelet Satelliting RBC Morphology Polychromasia Hypochromasia Poikilocytosis Basophilic Stippling Anisocytosis Microcytosis Macrocytosis Spherocytes Pappenheimer Bodies Sickle Cells Target Cells Tear Drop Cells Ovalocytes Stomatocytes Lawson-Parmele Bodies Echinocytes Acanthocytes (Spur) Rouleaux RBC Agglutinates Schistocytes Sezary Cell Sodium (136-145) mmol/L Potassium (3.5-5.1) mmol/L Chloride (98-107) mmol/L Carbon Dioxide (21-32) mmol/L Anion Gap (3-11) BUN (6-23) mg/dl Creatinine (0.6-1.4) mg/dl Est Cr Clr Drug Dosing ml/min Est GFR ( Amer) ml/min Est GFR (Non-Af Amer) ml/min BUN/Creatinine Ratio (10-20) Glucose (70-99(Fasting)) mg/dl Calcium (8.6-10.3) mg/dl Total Bilirubin (0.2-1.0) mg/dl AST (13-39) U/L ALT (7-52) U/L Alkaline Phosphatase (34-104) U/L Troponin I High Sens (0-20) pg/ml B-Natriuretic Peptide (0-100) pg/ml Total Protein (6.0-8.3) gm/dl Albumin (3.4-5.0) gm/dl Globulin (2.5-4.0) gm/dl Albumin/Globulin Ratio (0.9-2) Lipase (11-82) U/L Blood Parasites ID 11/13/23 11/13/23 11/13/23 Range/Units 08:55 08:55 08:55 WBC RBC Hgb Hct MCV MCH MCHC RDW Std Deviation RDW Coeff of Victor Hugo Plt Count MPV Immature Gran % (Auto) Neut % (Auto) Lymph % (Auto) Kaufman % (Auto) Eos % (Auto) Baso % (Auto) Neut # (Auto) Lymph # (Auto) Kaufman # (Auto) Eos # (Auto) Baso # (Auto) Immature Gran # (Auto) Absolute Nucleated RBC Nucleated RBC % (auto) Neutrophils % (Manual) Band Neutrophils % Lymphocytes % (Manual) Prolymphocyte % Reactive Lymphs % (Man) Monocytes % (Manual) Cancelled Eosinophils % (Manual) Cancelled Cancelled Basophils % (Manual) Cancelled Cancelled Metamyelocytes % (Man) Cancelled Myelocytes % (Man) Promyelocytes % (Man) Blast Cells % (Manual) Plasma Cell % (Manual) Other Cells % Nucleated RBC % Neutrophils # (Manual) Band Neutrophils # Total Absolute Neuts Lymphocytes # (Manual) Prolymphocyte # Reactive Lymphs # Total Abs Lymphocytes Monocytes # (Manual) Eosinophils # (Manual) Basophils # (Manual) Metamyelocytes # (Man) Myelocytes # (Manual) Promyelocytes # (Man) Blast Cells # (Man) Plasma Cell # (Manual) Other Cells # Nucleated RBCs # (Man) Hypersegmented Neuts Hyposegmented Neuts Hypogranular Neuts Large Granular Lymphs # Lrg Granular Lymphs Hairy Cells Smudge Cells Toxic Granulation Toxic Vacuolation Dohle Bodies Terese Rods Platelet Estimate Hypogranular Platelets Giant Platelets Platelet Satelliting RBC Morphology Polychromasia Hypochromasia Poikilocytosis Basophilic Stippling Anisocytosis Microcytosis Macrocytosis Spherocytes Pappenheimer Bodies Sickle Cells Target Cells Tear Drop Cells Ovalocytes Stomatocytes Lawson-Parmele Bodies Echinocytes Acanthocytes (Spur) Rouleaux RBC Agglutinates Schistocytes Sezary Cell Sodium (136-145) mmol/L Potassium (3.5-5.1) mmol/L Chloride (98-107) mmol/L Carbon Dioxide (21-32) mmol/L Anion Gap (3-11) BUN (6-23) mg/dl Creatinine (0.6-1.4) mg/dl Est Cr Clr Drug Dosing ml/min Est GFR ( Amer) ml/min Est GFR (Non-Af Amer) ml/min BUN/Creatinine Ratio (10-20) Glucose (70-99(Fasting)) mg/dl Calcium (8.6-10.3) mg/dl Total Bilirubin (0.2-1.0) mg/dl AST (13-39) U/L ALT (7-52) U/L Alkaline Phosphatase (34-104) U/L Troponin I High Sens (0-20) pg/ml B-Natriuretic Peptide (0-100) pg/ml Total Protein (6.0-8.3) gm/dl Albumin (3.4-5.0) gm/dl Globulin (2.5-4.0) gm/dl Albumin/Globulin Ratio (0.9-2) Lipase (11-82) U/L Blood Parasites ID 11/13/23 11/13/23 11/13/23 Range/Units 08:55 08:55 08:55 WBC RBC Hgb Hct MCV MCH MCHC RDW Std Deviation RDW Coeff of Victor Hugo Plt Count MPV Immature Gran % (Auto) Neut % (Auto) Lymph % (Auto) Kaufman % (Auto) Eos % (Auto) Baso % (Auto) Neut # (Auto) Lymph # (Auto) Kaufman # (Auto) Eos # (Auto) Baso # (Auto) Immature Gran # (Auto) Absolute Nucleated RBC Nucleated RBC % (auto) Neutrophils % (Manual) Band Neutrophils % Lymphocytes % (Manual) Prolymphocyte % Reactive Lymphs % (Man) Monocytes % (Manual) Eosinophils % (Manual) Basophils % (Manual) Metamyelocytes % (Man) Cancelled Myelocytes % (Man) Cancelled Cancelled Promyelocytes % (Man) Cancelled Cancelled Blast Cells % (Manual) Cancelled Plasma Cell % (Manual) Other Cells % Nucleated RBC % Neutrophils # (Manual) Band Neutrophils # Total Absolute Neuts Lymphocytes # (Manual) Prolymphocyte # Reactive Lymphs # Total Abs Lymphocytes Monocytes # (Manual) Eosinophils # (Manual) Basophils # (Manual) Metamyelocytes # (Man) Myelocytes # (Manual) Promyelocytes # (Man) Blast Cells # (Man) Plasma Cell # (Manual) Other Cells # Nucleated RBCs # (Man) Hypersegmented Neuts Hyposegmented Neuts Hypogranular Neuts Large Granular Lymphs # Lrg Granular Lymphs Hairy Cells Smudge Cells Toxic Granulation Toxic Vacuolation Dohle Bodies Terese Rods Platelet Estimate Hypogranular Platelets Giant Platelets Platelet Satelliting RBC Morphology Polychromasia Hypochromasia Poikilocytosis Basophilic Stippling Anisocytosis Microcytosis Macrocytosis Spherocytes Pappenheimer Bodies Sickle Cells Target Cells Tear Drop Cells Ovalocytes Stomatocytes Lawson-Parmele Bodies Echinocytes Acanthocytes (Spur) Rouleaux RBC Agglutinates Schistocytes Sezary Cell Sodium (136-145) mmol/L Potassium (3.5-5.1) mmol/L Chloride (98-107) mmol/L Carbon Dioxide (21-32) mmol/L Anion Gap (3-11) BUN (6-23) mg/dl Creatinine (0.6-1.4) mg/dl Est Cr Clr Drug Dosing ml/min Est GFR ( Amer) ml/min Est GFR (Non-Af Amer) ml/min BUN/Creatinine Ratio (10-20) Glucose (70-99(Fasting)) mg/dl Calcium (8.6-10.3) mg/dl Total Bilirubin (0.2-1.0) mg/dl AST (13-39) U/L ALT (7-52) U/L Alkaline Phosphatase (34-104) U/L Troponin I High Sens (0-20) pg/ml B-Natriuretic Peptide (0-100) pg/ml Total Protein (6.0-8.3) gm/dl Albumin (3.4-5.0) gm/dl Globulin (2.5-4.0) gm/dl Albumin/Globulin Ratio (0.9-2) Lipase (11-82) U/L Blood Parasites ID 11/13/23 11/13/23 11/13/23 Range/Units 08:55 08:55 08:55 WBC RBC Hgb Hct MCV MCH MCHC RDW Std Deviation RDW Coeff of Victor Hugo Plt Count MPV Immature Gran % (Auto) Neut % (Auto) Lymph % (Auto) Kaufman % (Auto) Eos % (Auto) Baso % (Auto) Neut # (Auto) Lymph # (Auto) Kaufman # (Auto) Eos # (Auto) Baso # (Auto) Immature Gran # (Auto) Absolute Nucleated RBC Nucleated RBC % (auto) Neutrophils % (Manual) Band Neutrophils % Lymphocytes % (Manual) Prolymphocyte % Reactive Lymphs % (Man) Monocytes % (Manual) Eosinophils % (Manual) Basophils % (Manual) Metamyelocytes % (Man) Myelocytes % (Man) Promyelocytes % (Man) Blast Cells % (Manual) Cancelled Plasma Cell % (Manual) Cancelled Cancelled Other Cells % Cancelled Cancelled Nucleated RBC % Cancelled Neutrophils # (Manual) Band Neutrophils # Total Absolute Neuts Lymphocytes # (Manual) Prolymphocyte # Reactive Lymphs # Total Abs Lymphocytes Monocytes # (Manual) Eosinophils # (Manual) Basophils # (Manual) Metamyelocytes # (Man) Myelocytes # (Manual) Promyelocytes # (Man) Blast Cells # (Man) Plasma Cell # (Manual) Other Cells # Nucleated RBCs # (Man) Hypersegmented Neuts Hyposegmented Neuts Hypogranular Neuts Large Granular Lymphs # Lrg Granular Lymphs Hairy Cells Smudge Cells Toxic Granulation Toxic Vacuolation Dohle Bodies Terese Rods Platelet Estimate Hypogranular Platelets Giant Platelets Platelet Satelliting RBC Morphology Polychromasia Hypochromasia Poikilocytosis Basophilic Stippling Anisocytosis Microcytosis Macrocytosis Spherocytes Pappenheimer Bodies Sickle Cells Target Cells Tear Drop Cells Ovalocytes Stomatocytes Lawson-Parmele Bodies Echinocytes Acanthocytes (Spur) Rouleaux RBC Agglutinates Schistocytes Sezary Cell Sodium (136-145) mmol/L Potassium (3.5-5.1) mmol/L Chloride (98-107) mmol/L Carbon Dioxide (21-32) mmol/L Anion Gap (3-11) BUN (6-23) mg/dl Creatinine (0.6-1.4) mg/dl Est Cr Clr Drug Dosing ml/min Est GFR ( Amer) ml/min Est GFR (Non-Af Amer) ml/min BUN/Creatinine Ratio (10-20) Glucose (70-99(Fasting)) mg/dl Calcium (8.6-10.3) mg/dl Total Bilirubin (0.2-1.0) mg/dl AST (13-39) U/L ALT (7-52) U/L Alkaline Phosphatase (34-104) U/L Troponin I High Sens (0-20) pg/ml B-Natriuretic Peptide (0-100) pg/ml Total Protein (6.0-8.3) gm/dl Albumin (3.4-5.0) gm/dl Globulin (2.5-4.0) gm/dl Albumin/Globulin Ratio (0.9-2) Lipase (11-82) U/L Blood Parasites ID 11/13/23 11/13/23 11/13/23 Range/Units 08:55 08:55 08:55 WBC RBC Hgb Hct MCV MCH MCHC RDW Std Deviation RDW Coeff of Victor Hugo Plt Count MPV Immature Gran % (Auto) Neut % (Auto) Lymph % (Auto) Kaufman % (Auto) Eos % (Auto) Baso % (Auto) Neut # (Auto) Lymph # (Auto) Kaufman # (Auto) Eos # (Auto) Baso # (Auto) Immature Gran # (Auto) Absolute Nucleated RBC Nucleated RBC % (auto) Neutrophils % (Manual) Band Neutrophils % Lymphocytes % (Manual) Prolymphocyte % Reactive Lymphs % (Man) Monocytes % (Manual) Eosinophils % (Manual) Basophils % (Manual) Metamyelocytes % (Man) Myelocytes % (Man) Promyelocytes % (Man) Blast Cells % (Manual) Plasma Cell % (Manual) Other Cells % Nucleated RBC % Cancelled Neutrophils # (Manual) Cancelled Cancelled Band Neutrophils # Cancelled Cancelled Total Absolute Neuts Cancelled Lymphocytes # (Manual) Prolymphocyte # Reactive Lymphs # Total Abs Lymphocytes Monocytes # (Manual) Eosinophils # (Manual) Basophils # (Manual) Metamyelocytes # (Man) Myelocytes # (Manual) Promyelocytes # (Man) Blast Cells # (Man) Plasma Cell # (Manual) Other Cells # Nucleated RBCs # (Man) Hypersegmented Neuts Hyposegmented Neuts Hypogranular Neuts Large Granular Lymphs # Lrg Granular Lymphs Hairy Cells Smudge Cells Toxic Granulation Toxic Vacuolation Dohle Bodies Terese Rods Platelet Estimate Hypogranular Platelets Giant Platelets Platelet Satelliting RBC Morphology Polychromasia Hypochromasia Poikilocytosis Basophilic Stippling Anisocytosis Microcytosis Macrocytosis Spherocytes Pappenheimer Bodies Sickle Cells Target Cells Tear Drop Cells Ovalocytes Stomatocytes Lawson-Parmele Bodies Echinocytes Acanthocytes (Spur) Rouleaux RBC Agglutinates Schistocytes Sezary Cell Sodium (136-145) mmol/L Potassium (3.5-5.1) mmol/L Chloride (98-107) mmol/L Carbon Dioxide (21-32) mmol/L Anion Gap (3-11) BUN (6-23) mg/dl Creatinine (0.6-1.4) mg/dl Est Cr Clr Drug Dosing ml/min Est GFR ( Amer) ml/min Est GFR (Non-Af Amer) ml/min BUN/Creatinine Ratio (10-20) Glucose (70-99(Fasting)) mg/dl Calcium (8.6-10.3) mg/dl Total Bilirubin (0.2-1.0) mg/dl AST (13-39) U/L ALT (7-52) U/L Alkaline Phosphatase (34-104) U/L Troponin I High Sens (0-20) pg/ml B-Natriuretic Peptide (0-100) pg/ml Total Protein (6.0-8.3) gm/dl Albumin (3.4-5.0) gm/dl Globulin (2.5-4.0) gm/dl Albumin/Globulin Ratio (0.9-2) Lipase (11-82) U/L Blood Parasites ID 11/13/23 11/13/23 11/13/23 Range/Units 08:55 08:55 08:55 WBC RBC Hgb Hct MCV MCH MCHC RDW Std Deviation RDW Coeff of Victor Hugo Plt Count MPV Immature Gran % (Auto) Neut % (Auto) Lymph % (Auto) Kaufman % (Auto) Eos % (Auto) Baso % (Auto) Neut # (Auto) Lymph # (Auto) Kaufman # (Auto) Eos # (Auto) Baso # (Auto) Immature Gran # (Auto) Absolute Nucleated RBC Nucleated RBC % (auto) Neutrophils % (Manual) Band Neutrophils % Lymphocytes % (Manual) Prolymphocyte % Reactive Lymphs % (Man) Monocytes % (Manual) Eosinophils % (Manual) Basophils % (Manual) Metamyelocytes % (Man) Myelocytes % (Man) Promyelocytes % (Man) Blast Cells % (Manual) Plasma Cell % (Manual) Other Cells % Nucleated RBC % Neutrophils # (Manual) Band Neutrophils # Total Absolute Neuts Cancelled Lymphocytes # (Manual) Cancelled Cancelled Prolymphocyte # Cancelled Cancelled Reactive Lymphs # Cancelled Total Abs Lymphocytes Monocytes # (Manual) Eosinophils # (Manual) Basophils # (Manual) Metamyelocytes # (Man) Myelocytes # (Manual) Promyelocytes # (Man) Blast Cells # (Man) Plasma Cell # (Manual) Other Cells # Nucleated RBCs # (Man) Hypersegmented Neuts Hyposegmented Neuts Hypogranular Neuts Large Granular Lymphs # Lrg Granular Lymphs Hairy Cells Smudge Cells Toxic Granulation Toxic Vacuolation Dohle Bodies Terese Rods Platelet Estimate Hypogranular Platelets Giant Platelets Platelet Satelliting RBC Morphology Polychromasia Hypochromasia Poikilocytosis Basophilic Stippling Anisocytosis Microcytosis Macrocytosis Spherocytes Pappenheimer Bodies Sickle Cells Target Cells Tear Drop Cells Ovalocytes Stomatocytes Lawson-Parmele Bodies Echinocytes Acanthocytes (Spur) Rouleaux RBC Agglutinates Schistocytes Sezary Cell Sodium (136-145) mmol/L Potassium (3.5-5.1) mmol/L Chloride (98-107) mmol/L Carbon Dioxide (21-32) mmol/L Anion Gap (3-11) BUN (6-23) mg/dl Creatinine (0.6-1.4) mg/dl Est Cr Clr Drug Dosing ml/min Est GFR ( Amer) ml/min Est GFR (Non-Af Amer) ml/min BUN/Creatinine Ratio (10-20) Glucose (70-99(Fasting)) mg/dl Calcium (8.6-10.3) mg/dl Total Bilirubin (0.2-1.0) mg/dl AST (13-39) U/L ALT (7-52) U/L Alkaline Phosphatase (34-104) U/L Troponin I High Sens (0-20) pg/ml B-Natriuretic Peptide (0-100) pg/ml Total Protein (6.0-8.3) gm/dl Albumin (3.4-5.0) gm/dl Globulin (2.5-4.0) gm/dl Albumin/Globulin Ratio (0.9-2) Lipase (11-82) U/L Blood Parasites ID 11/13/23 11/13/23 11/13/23 Range/Units 08:55 08:55 08:55 WBC RBC Hgb Hct MCV MCH MCHC RDW Std Deviation RDW Coeff of Victor Hugo Plt Count MPV Immature Gran % (Auto) Neut % (Auto) Lymph % (Auto) Kaufman % (Auto) Eos % (Auto) Baso % (Auto) Neut # (Auto) Lymph # (Auto) Kaufman # (Auto) Eos # (Auto) Baso # (Auto) Immature Gran # (Auto) Absolute Nucleated RBC Nucleated RBC % (auto) Neutrophils % (Manual) Band Neutrophils % Lymphocytes % (Manual) Prolymphocyte % Reactive Lymphs % (Man) Monocytes % (Manual) Eosinophils % (Manual) Basophils % (Manual) Metamyelocytes % (Man) Myelocytes % (Man) Promyelocytes % (Man) Blast Cells % (Manual) Plasma Cell % (Manual) Other Cells % Nucleated RBC % Neutrophils # (Manual) Band Neutrophils # Total Absolute Neuts Lymphocytes # (Manual) Prolymphocyte # Reactive Lymphs # Cancelled Total Abs Lymphocytes Cancelled Cancelled Monocytes # (Manual) Cancelled Cancelled Eosinophils # (Manual) Cancelled Basophils # (Manual) Metamyelocytes # (Man) Myelocytes # (Manual) Promyelocytes # (Man) Blast Cells # (Man) Plasma Cell # (Manual) Other Cells # Nucleated RBCs # (Man) Hypersegmented Neuts Hyposegmented Neuts Hypogranular Neuts Large Granular Lymphs # Lrg Granular Lymphs Hairy Cells Smudge Cells Toxic Granulation Toxic Vacuolation Dohle Bodies Terese Rods Platelet Estimate Hypogranular Platelets Giant Platelets Platelet Satelliting RBC Morphology Polychromasia Hypochromasia Poikilocytosis Basophilic Stippling Anisocytosis Microcytosis Macrocytosis Spherocytes Pappenheimer Bodies Sickle Cells Target Cells Tear Drop Cells Ovalocytes Stomatocytes Lawson-Parmele Bodies Echinocytes Acanthocytes (Spur) Rouleaux RBC Agglutinates Schistocytes Sezary Cell Sodium (136-145) mmol/L Potassium (3.5-5.1) mmol/L Chloride (98-107) mmol/L Carbon Dioxide (21-32) mmol/L Anion Gap (3-11) BUN (6-23) mg/dl Creatinine (0.6-1.4) mg/dl Est Cr Clr Drug Dosing ml/min Est GFR ( Amer) ml/min Est GFR (Non-Af Amer) ml/min BUN/Creatinine Ratio (10-20) Glucose (70-99(Fasting)) mg/dl Calcium (8.6-10.3) mg/dl Total Bilirubin (0.2-1.0) mg/dl AST (13-39) U/L ALT (7-52) U/L Alkaline Phosphatase (34-104) U/L Troponin I High Sens (0-20) pg/ml B-Natriuretic Peptide (0-100) pg/ml Total Protein (6.0-8.3) gm/dl Albumin (3.4-5.0) gm/dl Globulin (2.5-4.0) gm/dl Albumin/Globulin Ratio (0.9-2) Lipase (11-82) U/L Blood Parasites ID 11/13/23 11/13/23 11/13/23 Range/Units 08:55 08:55 08:55 WBC RBC Hgb Hct MCV MCH MCHC RDW Std Deviation RDW Coeff of Victor Hugo Plt Count MPV Immature Gran % (Auto) Neut % (Auto) Lymph % (Auto) Kaufman % (Auto) Eos % (Auto) Baso % (Auto) Neut # (Auto) Lymph # (Auto) Kaufman # (Auto) Eos # (Auto) Baso # (Auto) Immature Gran # (Auto) Absolute Nucleated RBC Nucleated RBC % (auto) Neutrophils % (Manual) Band Neutrophils % Lymphocytes % (Manual) Prolymphocyte % Reactive Lymphs % (Man) Monocytes % (Manual) Eosinophils % (Manual) Basophils % (Manual) Metamyelocytes % (Man) Myelocytes % (Man) Promyelocytes % (Man) Blast Cells % (Manual) Plasma Cell % (Manual) Other Cells % Nucleated RBC % Neutrophils # (Manual) Band Neutrophils # Total Absolute Neuts Lymphocytes # (Manual) Prolymphocyte # Reactive Lymphs # Total Abs Lymphocytes Monocytes # (Manual) Eosinophils # (Manual) Cancelled Basophils # (Manual) Cancelled Cancelled Metamyelocytes # (Man) Cancelled Cancelled Myelocytes # (Manual) Cancelled Promyelocytes # (Man) Blast Cells # (Man) Plasma Cell # (Manual) Other Cells # Nucleated RBCs # (Man) Hypersegmented Neuts Hyposegmented Neuts Hypogranular Neuts Large Granular Lymphs # Lrg Granular Lymphs Hairy Cells Smudge Cells Toxic Granulation Toxic Vacuolation Dohle Bodies Terese Rods Platelet Estimate Hypogranular Platelets Giant Platelets Platelet Satelliting RBC Morphology Polychromasia Hypochromasia Poikilocytosis Basophilic Stippling Anisocytosis Microcytosis Macrocytosis Spherocytes Pappenheimer Bodies Sickle Cells Target Cells Tear Drop Cells Ovalocytes Stomatocytes Lawson-Parmele Bodies Echinocytes Acanthocytes (Spur) Rouleaux RBC Agglutinates Schistocytes Sezary Cell Sodium (136-145) mmol/L Potassium (3.5-5.1) mmol/L Chloride (98-107) mmol/L Carbon Dioxide (21-32) mmol/L Anion Gap (3-11) BUN (6-23) mg/dl Creatinine (0.6-1.4) mg/dl Est Cr Clr Drug Dosing ml/min Est GFR ( Amer) ml/min Est GFR (Non-Af Amer) ml/min BUN/Creatinine Ratio (10-20) Glucose (70-99(Fasting)) mg/dl Calcium (8.6-10.3) mg/dl Total Bilirubin (0.2-1.0) mg/dl AST (13-39) U/L ALT (7-52) U/L Alkaline Phosphatase (34-104) U/L Troponin I High Sens (0-20) pg/ml B-Natriuretic Peptide (0-100) pg/ml Total Protein (6.0-8.3) gm/dl Albumin (3.4-5.0) gm/dl Globulin (2.5-4.0) gm/dl Albumin/Globulin Ratio (0.9-2) Lipase (11-82) U/L Blood Parasites ID 11/13/23 11/13/23 11/13/23 Range/Units 08:55 08:55 08:55 WBC RBC Hgb Hct MCV MCH MCHC RDW Std Deviation RDW Coeff of Victor Hugo Plt Count MPV Immature Gran % (Auto) Neut % (Auto) Lymph % (Auto) Kaufman % (Auto) Eos % (Auto) Baso % (Auto) Neut # (Auto) Lymph # (Auto) Kaufman # (Auto) Eos # (Auto) Baso # (Auto) Immature Gran # (Auto) Absolute Nucleated RBC Nucleated RBC % (auto) Neutrophils % (Manual) Band Neutrophils % Lymphocytes % (Manual) Prolymphocyte % Reactive Lymphs % (Man) Monocytes % (Manual) Eosinophils % (Manual) Basophils % (Manual) Metamyelocytes % (Man) Myelocytes % (Man) Promyelocytes % (Man) Blast Cells % (Manual) Plasma Cell % (Manual) Other Cells % Nucleated RBC % Neutrophils # (Manual) Band Neutrophils # Total Absolute Neuts Lymphocytes # (Manual) Prolymphocyte # Reactive Lymphs # Total Abs Lymphocytes Monocytes # (Manual) Eosinophils # (Manual) Basophils # (Manual) Metamyelocytes # (Man) Myelocytes # (Manual) Cancelled Promyelocytes # (Man) Cancelled Cancelled Blast Cells # (Man) Cancelled Cancelled Plasma Cell # (Manual) Cancelled Other Cells # Nucleated RBCs # (Man) Hypersegmented Neuts Hyposegmented Neuts Hypogranular Neuts Large Granular Lymphs # Lrg Granular Lymphs Hairy Cells Smudge Cells Toxic Granulation Toxic Vacuolation Dohle Bodies Terese Rods Platelet Estimate Hypogranular Platelets Giant Platelets Platelet Satelliting RBC Morphology Polychromasia Hypochromasia Poikilocytosis Basophilic Stippling Anisocytosis Microcytosis Macrocytosis Spherocytes Pappenheimer Bodies Sickle Cells Target Cells Tear Drop Cells Ovalocytes Stomatocytes Lawson-Parmele Bodies Echinocytes Acanthocytes (Spur) Rouleaux RBC Agglutinates Schistocytes Sezary Cell Sodium (136-145) mmol/L Potassium (3.5-5.1) mmol/L Chloride (98-107) mmol/L Carbon Dioxide (21-32) mmol/L Anion Gap (3-11) BUN (6-23) mg/dl Creatinine (0.6-1.4) mg/dl Est Cr Clr Drug Dosing ml/min Est GFR ( Amer) ml/min Est GFR (Non-Af Amer) ml/min BUN/Creatinine Ratio (10-20) Glucose (70-99(Fasting)) mg/dl Calcium (8.6-10.3) mg/dl Total Bilirubin (0.2-1.0) mg/dl AST (13-39) U/L ALT (7-52) U/L Alkaline Phosphatase (34-104) U/L Troponin I High Sens (0-20) pg/ml B-Natriuretic Peptide (0-100) pg/ml Total Protein (6.0-8.3) gm/dl Albumin (3.4-5.0) gm/dl Globulin (2.5-4.0) gm/dl Albumin/Globulin Ratio (0.9-2) Lipase (11-82) U/L Blood Parasites ID [id number]/[id number] 11/13/23 Range/Units 08:55 08:55 08:55 WBC RBC Hgb Hct MCV MCH MCHC RDW Std Deviation RDW Coeff of Victor Hugo Plt Count MPV Immature Gran % (Auto) Neut % (Auto) Lymph % (Auto) Kaufman % (Auto) Eos % (Auto) Baso % (Auto) Neut # (Auto) Lymph # (Auto) Kaufman # (Auto) Eos # (Auto) Baso # (Auto) Immature Gran # (Auto) Absolute Nucleated RBC Nucleated RBC % (auto) Neutrophils % (Manual) Band Neutrophils % Lymphocytes % (Manual) Prolymphocyte % Reactive Lymphs % (Man) Monocytes % (Manual) Eosinophils % (Manual) Basophils % (Manual) Metamyelocytes % (Man) Myelocytes % (Man) Promyelocytes % (Man) Blast Cells % (Manual) Plasma Cell % (Manual) Other Cells % Nucleated RBC % Neutrophils # (Manual) Band Neutrophils # Total Absolute Neuts Lymphocytes # (Manual) Prolymphocyte # Reactive Lymphs # Total Abs Lymphocytes Monocytes # (Manual) Eosinophils # (Manual) Basophils # (Manual) Metamyelocytes # (Man) Myelocytes # (Manual) Promyelocytes # (Man) Blast Cells # (Man) Plasma Cell # (Manual) Cancelled Other Cells # Cancelled Cancelled Nucleated RBCs # (Man) Cancelled Cancelled Hypersegmented Neuts Cancelled Hyposegmented Neuts Hypogranular Neuts Large Granular Lymphs # Lrg Granular Lymphs Hairy Cells Smudge Cells Toxic Granulation Toxic Vacuolation Dohle Bodies Terese Rods Platelet Estimate Hypogranular Platelets Giant Platelets Platelet Satelliting RBC Morphology Polychromasia Hypochromasia Poikilocytosis Basophilic Stippling Anisocytosis Microcytosis Macrocytosis Spherocytes Pappenheimer Bodies Sickle Cells Target Cells Tear Drop Cells Ovalocytes Stomatocytes Lawson-Parmele Bodies Echinocytes Acanthocytes (Spur) Rouleaux RBC Agglutinates Schistocytes Sezary Cell Sodium (136-145) mmol/L Potassium (3.5-5.1) mmol/L Chloride (98-107) mmol/L Carbon Dioxide (21-32) mmol/L Anion Gap (3-11) BUN (6-23) mg/dl Creatinine (0.6-1.4) mg/dl Est Cr Clr Drug Dosing ml/min Est GFR ( Amer) ml/min Est GFR (Non-Af Amer) ml/min BUN/Creatinine Ratio (10-20) Glucose (70-99(Fasting)) mg/dl Calcium (8.6-10.3) mg/dl Total Bilirubin (0.2-1.0) mg/dl AST (13-39) U/L ALT (7-52) U/L Alkaline Phosphatase (34-104) U/L Troponin I High Sens (0-20) pg/ml B-Natriuretic Peptide (0-100) pg/ml Total Protein (6.0-8.3) gm/dl Albumin (3.4-5.0) gm/dl Globulin (2.5-4.0) gm/dl Albumin/Globulin Ratio (0.9-2) Lipase (11-82) U/L Blood Parasites ID 11/13/23 11/13/23 11/13/23 Range/Units 08:55 08:55 08:55 WBC RBC Hgb Hct MCV MCH MCHC RDW Std Deviation RDW Coeff of Victor Hugo Plt Count MPV Immature Gran % (Auto) Neut % (Auto) Lymph % (Auto) Kaufman % (Auto) Eos % (Auto) Baso % (Auto) Neut # (Auto) Lymph # (Auto) Kaufman # (Auto) Eos # (Auto) Baso # (Auto) Immature Gran # (Auto) Absolute Nucleated RBC Nucleated RBC % (auto) Neutrophils % (Manual) Band Neutrophils % Lymphocytes % (Manual) Prolymphocyte % Reactive Lymphs % (Man) Monocytes % (Manual) Eosinophils % (Manual) Basophils % (Manual) Metamyelocytes % (Man) Myelocytes % (Man) Promyelocytes % (Man) Blast Cells % (Manual) Plasma Cell % (Manual) Other Cells % Nucleated RBC % Neutrophils # (Manual) Band Neutrophils # Total Absolute Neuts Lymphocytes # (Manual) Prolymphocyte # Reactive Lymphs # Total Abs Lymphocytes Monocytes # (Manual) Eosinophils # (Manual) Basophils # (Manual) Metamyelocytes # (Man) Myelocytes # (Manual) Promyelocytes # (Man) Blast Cells # (Man) Plasma Cell # (Manual) Other Cells # Nucleated RBCs # (Man) Hypersegmented Neuts Cancelled Hyposegmented Neuts Cancelled Cancelled Hypogranular Neuts Cancelled Cancelled Large Granular Lymphs Cancelled # Lrg Granular Lymphs Hairy Cells Smudge Cells Toxic Granulation Toxic Vacuolation Dohle Bodies Terese Rods Platelet Estimate Hypogranular Platelets Giant Platelets Platelet Satelliting RBC Morphology Polychromasia Hypochromasia Poikilocytosis Basophilic Stippling Anisocytosis Microcytosis Macrocytosis Spherocytes Pappenheimer Bodies Sickle Cells Target Cells Tear Drop Cells Ovalocytes Stomatocytes Lawosn-Parmele Bodies Echinocytes Acanthocytes (Spur) Rouleaux RBC Agglutinates Schistocytes Sezary Cell Sodium (136-145) mmol/L Potassium (3.5-5.1) mmol/L Chloride (98-107) mmol/L Carbon Dioxide (21-32) mmol/L Anion Gap (3-11) BUN (6-23) mg/dl Creatinine (0.6-1.4) mg/dl Est Cr Clr Drug Dosing ml/min Est GFR ( Amer) ml/min Est GFR (Non-Af Amer) ml/min BUN/Creatinine Ratio (10-20) Glucose (70-99(Fasting)) mg/dl Calcium (8.6-10.3) mg/dl Total Bilirubin (0.2-1.0) mg/dl AST (13-39) U/L ALT (7-52) U/L Alkaline Phosphatase (34-104) U/L Troponin I High Sens (0-20) pg/ml B-Natriuretic Peptide (0-100) pg/ml Total Protein (6.0-8.3) gm/dl Albumin (3.4-5.0) gm/dl Globulin (2.5-4.0) gm/dl Albumin/Globulin Ratio (0.9-2) Lipase (11-82) U/L Blood Parasites ID 11/13/23 11/13/23 11/13/23 Range/Units 08:55 08:55 08:55 WBC RBC Hgb Hct MCV MCH MCHC RDW Std Deviation RDW Coeff of Victor Hugo Plt Count MPV Immature Gran % (Auto) Neut % (Auto) Lymph % (Auto) Kaufman % (Auto) Eos % (Auto) Baso % (Auto) Neut # (Auto) Lymph # (Auto) Kaufman # (Auto) Eos # (Auto) Baso # (Auto) Immature Gran # (Auto) Absolute Nucleated RBC Nucleated RBC % (auto) Neutrophils % (Manual) Band Neutrophils % Lymphocytes % (Manual) Prolymphocyte % Reactive Lymphs % (Man) Monocytes % (Manual) Eosinophils % (Manual) Basophils % (Manual) Metamyelocytes % (Man) Myelocytes % (Man) Promyelocytes % (Man) Blast Cells % (Manual) Plasma Cell % (Manual) Other Cells % Nucleated RBC % Neutrophils # (Manual) Band Neutrophils # Total Absolute Neuts Lymphocytes # (Manual) Prolymphocyte # Reactive Lymphs # Total Abs Lymphocytes Monocytes # (Manual) Eosinophils # (Manual) Basophils # (Manual) Metamyelocytes # (Man) Myelocytes # (Manual) Promyelocytes # (Man) Blast Cells # (Man) Plasma Cell # (Manual) Other Cells # Nucleated RBCs # (Man) Hypersegmented Neuts Hyposegmented Neuts Hypogranular Neuts Large Granular Lymphs Cancelled # Lrg Granular Lymphs Cancelled Cancelled Hairy Cells Cancelled Cancelled Smudge Cells Cancelled Toxic Granulation Toxic Vacuolation Dohle Bodies Terese Rods Platelet Estimate Hypogranular Platelets Giant Platelets Platelet Satelliting RBC Morphology Polychromasia Hypochromasia Poikilocytosis Basophilic Stippling Anisocytosis Microcytosis Macrocytosis Spherocytes Pappenheimer Bodies Sickle Cells Target Cells Tear Drop Cells Ovalocytes Stomatocytes Lawson-Parmele Bodies Echinocytes Acanthocytes (Spur) Rouleaux RBC Agglutinates Schistocytes Sezary Cell Sodium (136-145) mmol/L Potassium (3.5-5.1) mmol/L Chloride (98-107) mmol/L Carbon Dioxide (21-32) mmol/L Anion Gap (3-11) BUN (6-23) mg/dl Creatinine (0.6-1.4) mg/dl Est Cr Clr Drug Dosing ml/min Est GFR ( Amer) ml/min Est GFR (Non-Af Amer) ml/min BUN/Creatinine Ratio (10-20) Glucose (70-99(Fasting)) mg/dl Calcium (8.6-10.3) mg/dl Total Bilirubin (0.2-1.0) mg/dl AST (13-39) U/L ALT (7-52) U/L Alkaline Phosphatase (34-104) U/L Troponin I High Sens (0-20) pg/ml B-Natriuretic Peptide (0-100) pg/ml Total Protein (6.0-8.3) gm/dl Albumin (3.4-5.0) gm/dl Globulin (2.5-4.0) gm/dl Albumin/Globulin Ratio (0.9-2) Lipase (11-82) U/L Blood Parasites ID 11/13/23 11/13/23 11/13/23 Range/Units 08:55 08:55 08:55 WBC RBC Hgb Hct MCV MCH MCHC RDW Std Deviation RDW Coeff of Victor Hugo Plt Count MPV Immature Gran % (Auto) Neut % (Auto) Lymph % (Auto) Kaufman % (Auto) Eos % (Auto) Baso % (Auto) Neut # (Auto) Lymph # (Auto) Kaufman # (Auto) Eos # (Auto) Baso # (Auto) Immature Gran # (Auto) Absolute Nucleated RBC Nucleated RBC % (auto) Neutrophils % (Manual) Band Neutrophils % Lymphocytes % (Manual) Prolymphocyte % Reactive Lymphs % (Man) Monocytes % (Manual) Eosinophils % (Manual) Basophils % (Manual) Metamyelocytes % (Man) Myelocytes % (Man) Promyelocytes % (Man) Blast Cells % (Manual) Plasma Cell % (Manual) Other Cells % Nucleated RBC % Neutrophils # (Manual) Band Neutrophils # Total Absolute Neuts Lymphocytes # (Manual) Prolymphocyte # Reactive Lymphs # Total Abs Lymphocytes Monocytes # (Manual) Eosinophils # (Manual) Basophils # (Manual) Metamyelocytes # (Man) Myelocytes # (Manual) Promyelocytes # (Man) Blast Cells # (Man) Plasma Cell # (Manual) Other Cells # Nucleated RBCs # (Man) Hypersegmented Neuts Hyposegmented Neuts Hypogranular Neuts Large Granular Lymphs # Lrg Granular Lymphs Hairy Cells Smudge Cells Cancelled Toxic Granulation Cancelled Cancelled Toxic Vacuolation Cancelled Cancelled Dohle Bodies Cancelled Terese Rods Platelet Estimate Hypogranular Platelets Giant Platelets Platelet Satelliting RBC Morphology Polychromasia Hypochromasia Poikilocytosis Basophilic Stippling Anisocytosis Microcytosis Macrocytosis Spherocytes Pappenheimer Bodies Sickle Cells Target Cells Tear Drop Cells Ovalocytes Stomatocytes Lawson-Parmele Bodies Echinocytes Acanthocytes (Spur) Rouleaux RBC Agglutinates Schistocytes Sezary Cell Sodium (136-145) mmol/L Potassium (3.5-5.1) mmol/L Chloride (98-107) mmol/L Carbon Dioxide (21-32) mmol/L Anion Gap (3-11) BUN (6-23) mg/dl Creatinine (0.6-1.4) mg/dl Est Cr Clr Drug Dosing ml/min Est GFR ( Amer) ml/min Est GFR (Non-Af Amer) ml/min BUN/Creatinine Ratio (10-20) Glucose (70-99(Fasting)) mg/dl Calcium (8.6-10.3) mg/dl Total Bilirubin (0.2-1.0) mg/dl AST (13-39) U/L ALT (7-52) U/L Alkaline Phosphatase (34-104) U/L Troponin I High Sens (0-20) pg/ml B-Natriuretic Peptide (0-100) pg/ml Total Protein (6.0-8.3) gm/dl Albumin (3.4-5.0) gm/dl Globulin (2.5-4.0) gm/dl Albumin/Globulin Ratio (0.9-2) Lipase (11-82) U/L Blood Parasites ID 11/13/23 11/13/23 11/13/23 Range/Units 08:55 08:55 08:55 WBC RBC Hgb Hct MCV MCH MCHC RDW Std Deviation RDW Coeff of Victor Hugo Plt Count MPV Immature Gran % (Auto) Neut % (Auto) Lymph % (Auto) Kaufman % (Auto) Eos % (Auto) Baso % (Auto) Neut # (Auto) Lymph # (Auto) Kaufman # (Auto) Eos # (Auto) Baso # (Auto) Immature Gran # (Auto) Absolute Nucleated RBC Nucleated RBC % (auto) Neutrophils % (Manual) Band Neutrophils % Lymphocytes % (Manual) Prolymphocyte % Reactive Lymphs % (Man) Monocytes % (Manual) Eosinophils % (Manual) Basophils % (Manual) Metamyelocytes % (Man) Myelocytes % (Man) Promyelocytes % (Man) Blast Cells % (Manual) Plasma Cell % (Manual) Other Cells % Nucleated RBC % Neutrophils # (Manual) Band Neutrophils # Total Absolute Neuts Lymphocytes # (Manual) Prolymphocyte # Reactive Lymphs # Total Abs Lymphocytes Monocytes # (Manual) Eosinophils # (Manual) Basophils # (Manual) Metamyelocytes # (Man) Myelocytes # (Manual) Promyelocytes # (Man) Blast Cells # (Man) Plasma Cell # (Manual) Other Cells # Nucleated RBCs # (Man) Hypersegmented Neuts Hyposegmented Neuts Hypogranular Neuts Large Granular Lymphs # Lrg Granular Lymphs Hairy Cells Smudge Cells Toxic Granulation Toxic Vacuolation Dohle Bodies Cancelled Terese Rods Cancelled Cancelled Platelet Estimate Cancelled Cancelled Hypogranular Platelets Cancelled Giant Platelets Platelet Satelliting RBC Morphology Polychromasia Hypochromasia Poikilocytosis Basophilic Stippling Anisocytosis Microcytosis Macrocytosis Spherocytes Pappenheimer Bodies Sickle Cells Target Cells Tear Drop Cells Ovalocytes Stomatocytes Lawson-Parmele Bodies Echinocytes Acanthocytes (Spur) Rouleaux RBC Agglutinates Schistocytes Sezary Cell Sodium (136-145) mmol/L Potassium (3.5-5.1) mmol/L Chloride (98-107) mmol/L Carbon Dioxide (21-32) mmol/L Anion Gap (3-11) BUN (6-23) mg/dl Creatinine (0.6-1.4) mg/dl Est Cr Clr Drug Dosing ml/min Est GFR ( Amer) ml/min Est GFR (Non-Af Amer) ml/min BUN/Creatinine Ratio (10-20) Glucose (70-99(Fasting)) mg/dl Calcium (8.6-10.3) mg/dl Total Bilirubin (0.2-1.0) mg/dl AST (13-39) U/L ALT (7-52) U/L Alkaline Phosphatase (34-104) U/L Troponin I High Sens (0-20) pg/ml B-Natriuretic Peptide (0-100) pg/ml Total Protein (6.0-8.3) gm/dl Albumin (3.4-5.0) gm/dl Globulin (2.5-4.0) gm/dl Albumin/Globulin Ratio (0.9-2) Lipase (11-82) U/L Blood Parasites ID 11/13/23 11/13/23 11/13/23 Range/Units 08:55 08:55 08:55 WBC RBC Hgb Hct MCV MCH MCHC RDW Std Deviation RDW Coeff of Victor Hugo Plt Count MPV Immature Gran % (Auto) Neut % (Auto) Lymph % (Auto) Kaufman % (Auto) Eos % (Auto) Baso % (Auto) Neut # (Auto) Lymph # (Auto) Kaufman # (Auto) Eos # (Auto) Baso # (Auto) Immature Gran # (Auto) Absolute Nucleated RBC Nucleated RBC % (auto) Neutrophils % (Manual) Band Neutrophils % Lymphocytes % (Manual) Prolymphocyte % Reactive Lymphs % (Man) Monocytes % (Manual) Eosinophils % (Manual) Basophils % (Manual) Metamyelocytes % (Man) Myelocytes % (Man) Promyelocytes % (Man) Blast Cells % (Manual) Plasma Cell % (Manual) Other Cells % Nucleated RBC % Neutrophils # (Manual) Band Neutrophils # Total Absolute Neuts Lymphocytes # (Manual) Prolymphocyte # Reactive Lymphs # Total Abs Lymphocytes Monocytes # (Manual) Eosinophils # (Manual) Basophils # (Manual) Metamyelocytes # (Man) Myelocytes # (Manual) Promyelocytes # (Man) Blast Cells # (Man) Plasma Cell # (Manual) Other Cells # Nucleated RBCs # (Man) Hypersegmented Neuts Hyposegmented Neuts Hypogranular Neuts Large Granular Lymphs # Lrg Granular Lymphs Hairy Cells Smudge Cells Toxic Granulation Toxic Vacuolation Dohle Bodies Terese Rods Platelet Estimate Hypogranular Platelets Cancelled Giant Platelets Cancelled Cancelled Platelet Satelliting Cancelled Cancelled RBC Morphology Cancelled Polychromasia Hypochromasia Poikilocytosis Basophilic Stippling Anisocytosis Microcytosis Macrocytosis Spherocytes Pappenheimer Bodies Sickle Cells Target Cells Tear Drop Cells Ovalocytes Stomatocytes Lawson-Parmele Bodies Echinocytes Acanthocytes (Spur) Rouleaux RBC Agglutinates Schistocytes Sezary Cell Sodium (136-145) mmol/L Potassium (3.5-5.1) mmol/L Chloride (98-107) mmol/L Carbon Dioxide (21-32) mmol/L Anion Gap (3-11) BUN (6-23) mg/dl Creatinine (0.6-1.4) mg/dl Est Cr Clr Drug Dosing ml/min Est GFR ( Amer) ml/min Est GFR (Non-Af Amer) ml/min BUN/Creatinine Ratio (10-20) Glucose (70-99(Fasting)) mg/dl Calcium (8.6-10.3) mg/dl Total Bilirubin (0.2-1.0) mg/dl AST (13-39) U/L ALT (7-52) U/L Alkaline Phosphatase (34-104) U/L Troponin I High Sens (0-20) pg/ml B-Natriuretic Peptide (0-100) pg/ml Total Protein (6.0-8.3) gm/dl Albumin (3.4-5.0) gm/dl Globulin (2.5-4.0) gm/dl Albumin/Globulin Ratio (0.9-2) Lipase (11-82) U/L Blood Parasites ID 11/13/23 11/13/23 11/13/23 Range/Units 08:55 08:55 08:55 WBC RBC Hgb Hct MCV MCH MCHC RDW Std Deviation RDW Coeff of Victor Hugo Plt Count MPV Immature Gran % (Auto) Neut % (Auto) Lymph % (Auto) Kaufman % (Auto) Eos % (Auto) Baso % (Auto) Neut # (Auto) Lymph # (Auto) Kaufman # (Auto) Eos # (Auto) Baso # (Auto) Immature Gran # (Auto) Absolute Nucleated RBC Nucleated RBC % (auto) Neutrophils % (Manual) Band Neutrophils % Lymphocytes % (Manual) Prolymphocyte % Reactive Lymphs % (Man) Monocytes % (Manual) Eosinophils % (Manual) Basophils % (Manual) Metamyelocytes % (Man) Myelocytes % (Man) Promyelocytes % (Man) Blast Cells % (Manual) Plasma Cell % (Manual) Other Cells % Nucleated RBC % Neutrophils # (Manual) Band Neutrophils # Total Absolute Neuts Lymphocytes # (Manual) Prolymphocyte # Reactive Lymphs # Total Abs Lymphocytes Monocytes # (Manual) Eosinophils # (Manual) Basophils # (Manual) Metamyelocytes # (Man) Myelocytes # (Manual) Promyelocytes # (Man) Blast Cells # (Man) Plasma Cell # (Manual) Other Cells # Nucleated RBCs # (Man) Hypersegmented Neuts Hyposegmented Neuts Hypogranular Neuts Large Granular Lymphs # Lrg Granular Lymphs Hairy Cells Smudge Cells Toxic Granulation Toxic Vacuolation Dohle Bodies Terese Rods Platelet Estimate Hypogranular Platelets Giant Platelets Platelet Satelliting RBC Morphology Cancelled Polychromasia Cancelled Cancelled Hypochromasia Cancelled Cancelled Poikilocytosis Cancelled Basophilic Stippling Anisocytosis Microcytosis Macrocytosis Spherocytes Pappenheimer Bodies Sickle Cells Target Cells Tear Drop Cells Ovalocytes Stomatocytes Lawson-Parmele Bodies Echinocytes Acanthocytes (Spur) Rouleaux RBC Agglutinates Schistocytes Sezary Cell Sodium (136-145) mmol/L Potassium (3.5-5.1) mmol/L Chloride (98-107) mmol/L Carbon Dioxide (21-32) mmol/L Anion Gap (3-11) BUN (6-23) mg/dl Creatinine (0.6-1.4) mg/dl Est Cr Clr Drug Dosing ml/min Est GFR ( Amer) ml/min Est GFR (Non-Af Amer) ml/min BUN/Creatinine Ratio (10-20) Glucose (70-99(Fasting)) mg/dl Calcium (8.6-10.3) mg/dl Total Bilirubin (0.2-1.0) mg/dl AST (13-39) U/L ALT (7-52) U/L Alkaline Phosphatase (34-104) U/L Troponin I High Sens (0-20) pg/ml B-Natriuretic Peptide (0-100) pg/ml Total Protein (6.0-8.3) gm/dl Albumin (3.4-5.0) gm/dl Globulin (2.5-4.0) gm/dl Albumin/Globulin Ratio (0.9-2) Lipase (11-82) U/L Blood Parasites ID 11/13/23 11/13/23 11/13/23 Range/Units 08:55 08:55 08:55 WBC RBC Hgb Hct MCV MCH MCHC RDW Std Deviation RDW Coeff of Victor Hugo Plt Count MPV Immature Gran % (Auto) Neut % (Auto) Lymph % (Auto) Kaufman % (Auto) Eos % (Auto) Baso % (Auto) Neut # (Auto) Lymph # (Auto) Kaufman # (Auto) Eos # (Auto) Baso # (Auto) Immature Gran # (Auto) Absolute Nucleated RBC Nucleated RBC % (auto) Neutrophils % (Manual) Band Neutrophils % Lymphocytes % (Manual) Prolymphocyte % Reactive Lymphs % (Man) Monocytes % (Manual) Eosinophils % (Manual) Basophils % (Manual) Metamyelocytes % (Man) Myelocytes % (Man) Promyelocytes % (Man) Blast Cells % (Manual) Plasma Cell % (Manual) Other Cells % Nucleated RBC % Neutrophils # (Manual) Band Neutrophils # Total Absolute Neuts Lymphocytes # (Manual) Prolymphocyte # Reactive Lymphs # Total Abs Lymphocytes Monocytes # (Manual) Eosinophils # (Manual) Basophils # (Manual) Metamyelocytes # (Man) Myelocytes # (Manual) Promyelocytes # (Man) Blast Cells # (Man) Plasma Cell # (Manual) Other Cells # Nucleated RBCs # (Man) Hypersegmented Neuts Hyposegmented Neuts Hypogranular Neuts Large Granular Lymphs # Lrg Granular Lymphs Hairy Cells Smudge Cells Toxic Granulation Toxic Vacuolation Dohle Bodies Terese Rods Platelet Estimate Hypogranular Platelets Giant Platelets Platelet Satelliting RBC Morphology Polychromasia Hypochromasia Poikilocytosis Cancelled Basophilic Stippling Cancelled Cancelled Anisocytosis Cancelled Cancelled Microcytosis Cancelled Macrocytosis Spherocytes Pappenheimer Bodies Sickle Cells Target Cells Tear Drop Cells Ovalocytes Stomatocytes Lawson-Parmele Bodies Echinocytes Acanthocytes (Spur) Rouleaux RBC Agglutinates Schistocytes Sezary Cell Sodium (136-145) mmol/L Potassium (3.5-5.1) mmol/L Chloride (98-107) mmol/L Carbon Dioxide (21-32) mmol/L Anion Gap (3-11) BUN (6-23) mg/dl Creatinine (0.6-1.4) mg/dl Est Cr Clr Drug Dosing ml/min Est GFR ( Amer) ml/min Est GFR (Non-Af Amer) ml/min BUN/Creatinine Ratio (10-20) Glucose (70-99(Fasting)) mg/dl Calcium (8.6-10.3) mg/dl Total Bilirubin (0.2-1.0) mg/dl AST (13-39) U/L ALT (7-52) U/L Alkaline Phosphatase (34-104) U/L Troponin I High Sens (0-20) pg/ml B-Natriuretic Peptide (0-100) pg/ml Total Protein (6.0-8.3) gm/dl Albumin (3.4-5.0) gm/dl Globulin (2.5-4.0) gm/dl Albumin/Globulin Ratio (0.9-2) Lipase (11-82) U/L Blood Parasites ID 04/16/24 04/16/24 04/16/24 Range/Units 08:55 08:55 08:55 WBC RBC Hgb Hct MCV MCH MCHC RDW Std Deviation RDW Coeff of Victor Hugo Plt Count MPV Immature Gran % (Auto) Neut % (Auto) Lymph % (Auto) Kaufman % (Auto) Eos % (Auto) Baso % (Auto) Neut # (Auto) Lymph # (Auto) Kaufman # (Auto) Eos # (Auto) Baso # (Auto) Immature Gran # (Auto) Absolute Nucleated RBC Nucleated RBC % (auto) Neutrophils % (Manual) Band Neutrophils % Lymphocytes % (Manual) Prolymphocyte % Reactive Lymphs % (Man) Monocytes % (Manual) Eosinophils % (Manual) Basophils % (Manual) Metamyelocytes % (Man) Myelocytes % (Man) Promyelocytes % (Man) Blast Cells % (Manual) Plasma Cell % (Manual) Other Cells % Nucleated RBC % Neutrophils # (Manual) Band Neutrophils # Total Absolute Neuts Lymphocytes # (Manual) Prolymphocyte # Reactive Lymphs # Total Abs Lymphocytes Monocytes # (Manual) Eosinophils # (Manual) Basophils # (Manual) Metamyelocytes # (Man) Myelocytes # (Manual) Promyelocytes # (Man) Blast Cells # (Man) Plasma Cell # (Manual) Other Cells # Nucleated RBCs # (Man) Hypersegmented Neuts Hyposegmented Neuts Hypogranular Neuts Large Granular Lymphs # Lrg Granular Lymphs Hairy Cells Smudge Cells Toxic Granulation Toxic Vacuolation Dohle Bodies Terese Rods Platelet Estimate Hypogranular Platelets Giant Platelets Platelet Satelliting RBC Morphology Polychromasia Hypochromasia Poikilocytosis Basophilic Stippling Anisocytosis Microcytosis Cancelled Macrocytosis Cancelled Cancelled Spherocytes Cancelled Cancelled Pappenheimer Bodies Cancelled Sickle Cells Target Cells Tear Drop Cells Ovalocytes Stomatocytes Lawson-Parmele Bodies Echinocytes Acanthocytes (Spur) Rouleaux RBC Agglutinates Schistocytes Sezary Cell Sodium (136-145) mmol/L Potassium (3.5-5.1) mmol/L Chloride (98-107) mmol/L Carbon Dioxide (21-32) mmol/L Anion Gap (3-11) BUN (6-23) mg/dl Creatinine (0.6-1.4) mg/dl Est Cr Clr Drug Dosing ml/min Est GFR ( Amer) ml/min Est GFR (Non-Af Amer) ml/min BUN/Creatinine Ratio (10-20) Glucose (70-99(Fasting)) mg/dl Calcium (8.6-10.3) mg/dl Total Bilirubin (0.2-1.0) mg/dl AST (13-39) U/L ALT (7-52) U/L Alkaline Phosphatase (34-104) U/L Troponin I High Sens (0-20) pg/ml B-Natriuretic Peptide (0-100) pg/ml Total Protein (6.0-8.3) gm/dl Albumin (3.4-5.0) gm/dl Globulin (2.5-4.0) gm/dl Albumin/Globulin Ratio (0.9-2) Lipase (11-82) U/L Blood Parasites ID 11/13/23 11/13/23 11/13/23 Range/Units 08:55 08:55 08:55 WBC RBC Hgb Hct MCV MCH MCHC RDW Std Deviation RDW Coeff of Victor Hugo Plt Count MPV Immature Gran % (Auto) Neut % (Auto) Lymph % (Auto) Kaufman % (Auto) Eos % (Auto) Baso % (Auto) Neut # (Auto) Lymph # (Auto) Kaufman # (Auto) Eos # (Auto) Baso # (Auto) Immature Gran # (Auto) Absolute Nucleated RBC Nucleated RBC % (auto) Neutrophils % (Manual) Band Neutrophils % Lymphocytes % (Manual) Prolymphocyte % Reactive Lymphs % (Man) Monocytes % (Manual) Eosinophils % (Manual) Basophils % (Manual) Metamyelocytes % (Man) Myelocytes % (Man) Promyelocytes % (Man) Blast Cells % (Manual) Plasma Cell % (Manual) Other Cells % Nucleated RBC % Neutrophils # (Manual) Band Neutrophils # Total Absolute Neuts Lymphocytes # (Manual) Prolymphocyte # Reactive Lymphs # Total Abs Lymphocytes Monocytes # (Manual) Eosinophils # (Manual) Basophils # (Manual) Metamyelocytes # (Man) Myelocytes # (Manual) Promyelocytes # (Man) Blast Cells # (Man) Plasma Cell # (Manual) Other Cells # Nucleated RBCs # (Man) Hypersegmented Neuts Hyposegmented Neuts Hypogranular Neuts Large Granular Lymphs # Lrg Granular Lymphs Hairy Cells Smudge Cells Toxic Granulation Toxic Vacuolation Dohle Bodies Terese Rods Platelet Estimate Hypogranular Platelets Giant Platelets Platelet Satelliting RBC Morphology Polychromasia Hypochromasia Poikilocytosis Basophilic Stippling Anisocytosis Microcytosis Macrocytosis Spherocytes Pappenheimer Bodies Cancelled Sickle Cells Cancelled Cancelled Target Cells Cancelled Cancelled Tear Drop Cells Cancelled Ovalocytes Stomatocytes Lawson-Parmele Bodies Echinocytes Acanthocytes (Spur) Rouleaux RBC Agglutinates Schistocytes Sezary Cell Sodium (136-145) mmol/L Potassium (3.5-5.1) mmol/L Chloride (98-107) mmol/L Carbon Dioxide (21-32) mmol/L Anion Gap (3-11) BUN (6-23) mg/dl Creatinine (0.6-1.4) mg/dl Est Cr Clr Drug Dosing ml/min Est GFR ( Amer) ml/min Est GFR (Non-Af Amer) ml/min BUN/Creatinine Ratio (10-20) Glucose (70-99(Fasting)) mg/dl Calcium (8.6-10.3) mg/dl Total Bilirubin (0.2-1.0) mg/dl AST (13-39) U/L ALT (7-52) U/L Alkaline Phosphatase (34-104) U/L Troponin I High Sens (0-20) pg/ml B-Natriuretic Peptide (0-100) pg/ml Total Protein (6.0-8.3) gm/dl Albumin (3.4-5.0) gm/dl Globulin (2.5-4.0) gm/dl Albumin/Globulin Ratio (0.9-2) Lipase (11-82) U/L Blood Parasites ID 11/13/23 11/13/23 11/13/23 Range/Units 08:55 08:55 08:55 WBC RBC Hgb Hct MCV MCH MCHC RDW Std Deviation RDW Coeff of Victor Hugo Plt Count MPV Immature Gran % (Auto) Neut % (Auto) Lymph % (Auto) Kaufman % (Auto) Eos % (Auto) Baso % (Auto) Neut # (Auto) Lymph # (Auto) Kaufman # (Auto) Eos # (Auto) Baso # (Auto) Immature Gran # (Auto) Absolute Nucleated RBC Nucleated RBC % (auto) Neutrophils % (Manual) Band Neutrophils % Lymphocytes % (Manual) Prolymphocyte % Reactive Lymphs % (Man) Monocytes % (Manual) Eosinophils % (Manual) Basophils % (Manual) Metamyelocytes % (Man) Myelocytes % (Man) Promyelocytes % (Man) Blast Cells % (Manual) Plasma Cell % (Manual) Other Cells % Nucleated RBC % Neutrophils # (Manual) Band Neutrophils # Total Absolute Neuts Lymphocytes # (Manual) Prolymphocyte # Reactive Lymphs # Total Abs Lymphocytes Monocytes # (Manual) Eosinophils # (Manual) Basophils # (Manual) Metamyelocytes # (Man) Myelocytes # (Manual) Promyelocytes # (Man) Blast Cells # (Man) Plasma Cell # (Manual) Other Cells # Nucleated RBCs # (Man) Hypersegmented Neuts Hyposegmented Neuts Hypogranular Neuts Large Granular Lymphs # Lrg Granular Lymphs Hairy Cells Smudge Cells Toxic Granulation Toxic Vacuolation Dohle Bodies Terese Rods Platelet Estimate Hypogranular Platelets Giant Platelets Platelet Satelliting RBC Morphology Polychromasia Hypochromasia Poikilocytosis Basophilic Stippling Anisocytosis Microcytosis Macrocytosis Spherocytes Pappenheimer Bodies Sickle Cells Target Cells Tear Drop Cells Cancelled Ovalocytes Cancelled Cancelled Stomatocytes Cancelled Cancelled Lawson-Parmele Bodies Cancelled Echinocytes Acanthocytes (Spur) Rouleaux RBC Agglutinates Schistocytes Sezary Cell Sodium (136-145) mmol/L Potassium (3.5-5.1) mmol/L Chloride (98-107) mmol/L Carbon Dioxide (21-32) mmol/L Anion Gap (3-11) BUN (6-23) mg/dl Creatinine (0.6-1.4) mg/dl Est Cr Clr Drug Dosing ml/min Est GFR ( Amer) ml/min Est GFR (Non-Af Amer) ml/min BUN/Creatinine Ratio (10-20) Glucose (70-99(Fasting)) mg/dl Calcium (8.6-10.3) mg/dl Total Bilirubin (0.2-1.0) mg/dl AST (13-39) U/L ALT (7-52) U/L Alkaline Phosphatase (34-104) U/L Troponin I High Sens (0-20) pg/ml B-Natriuretic Peptide (0-100) pg/ml Total Protein (6.0-8.3) gm/dl Albumin (3.4-5.0) gm/dl Globulin (2.5-4.0) gm/dl Albumin/Globulin Ratio (0.9-2) Lipase (11-82) U/L Blood Parasites ID 11/13/23 11/13/23 11/13/23 Range/Units 08:55 08:55 08:55 WBC RBC Hgb Hct MCV MCH MCHC RDW Std Deviation RDW Coeff of Victor Hugo Plt Count MPV Immature Gran % (Auto) Neut % (Auto) Lymph % (Auto) Kaufman % (Auto) Eos % (Auto) Baso % (Auto) Neut # (Auto) Lymph # (Auto) Kaufman # (Auto) Eos # (Auto) Baso # (Auto) Immature Gran # (Auto) Absolute Nucleated RBC Nucleated RBC % (auto) Neutrophils % (Manual) Band Neutrophils % Lymphocytes % (Manual) Prolymphocyte % Reactive Lymphs % (Man) Monocytes % (Manual) Eosinophils % (Manual) Basophils % (Manual) Metamyelocytes % (Man) Myelocytes % (Man) Promyelocytes % (Man) Blast Cells % (Manual) Plasma Cell % (Manual) Other Cells % Nucleated RBC % Neutrophils # (Manual) Band Neutrophils # Total Absolute Neuts Lymphocytes # (Manual) Prolymphocyte # Reactive Lymphs # Total Abs Lymphocytes Monocytes # (Manual) Eosinophils # (Manual) Basophils # (Manual) Metamyelocytes # (Man) Myelocytes # (Manual) Promyelocytes # (Man) Blast Cells # (Man) Plasma Cell # (Manual) Other Cells # Nucleated RBCs # (Man) Hypersegmented Neuts Hyposegmented Neuts Hypogranular Neuts Large Granular Lymphs # Lrg Granular Lymphs Hairy Cells Smudge Cells Toxic Granulation Toxic Vacuolation Dohle Bodies Terese Rods Platelet Estimate Hypogranular Platelets Giant Platelets Platelet Satelliting RBC Morphology Polychromasia Hypochromasia Poikilocytosis Basophilic Stippling Anisocytosis Microcytosis Macrocytosis Spherocytes Pappenheimer Bodies Sickle Cells Target Cells Tear Drop Cells Ovalocytes Stomatocytes Lawson-Parmele Bodies Cancelled Echinocytes Cancelled Cancelled Acanthocytes (Spur) Cancelled Cancelled Rouleaux Cancelled RBC Agglutinates Schistocytes Sezary Cell Sodium (136-145) mmol/L Potassium (3.5-5.1) mmol/L Chloride (98-107) mmol/L Carbon Dioxide (21-32) mmol/L Anion Gap (3-11) BUN (6-23) mg/dl Creatinine (0.6-1.4) mg/dl Est Cr Clr Drug Dosing ml/min Est GFR ( Amer) ml/min Est GFR (Non-Af Amer) ml/min BUN/Creatinine Ratio (10-20) Glucose (70-99(Fasting)) mg/dl Calcium (8.6-10.3) mg/dl Total Bilirubin (0.2-1.0) mg/dl AST (13-39) U/L ALT (7-52) U/L Alkaline Phosphatase (34-104) U/L Troponin I High Sens (0-20) pg/ml B-Natriuretic Peptide (0-100) pg/ml Total Protein (6.0-8.3) gm/dl Albumin (3.4-5.0) gm/dl Globulin (2.5-4.0) gm/dl Albumin/Globulin Ratio (0.9-2) Lipase (11-82) U/L Blood Parasites ID 11/13/23 11/13/23 11/13/23 Range/Units 08:55 08:55 08:55 WBC RBC Hgb Hct MCV MCH MCHC RDW Std Deviation RDW Coeff of Victor Hugo Plt Count MPV Immature Gran % (Auto) Neut % (Auto) Lymph % (Auto) Kaufman % (Auto) Eos % (Auto) Baso % (Auto) Neut # (Auto) Lymph # (Auto) Kaufman # (Auto) Eos # (Auto) Baso # (Auto) Immature Gran # (Auto) Absolute Nucleated RBC Nucleated RBC % (auto) Neutrophils % (Manual) Band Neutrophils % Lymphocytes % (Manual) Prolymphocyte % Reactive Lymphs % (Man) Monocytes % (Manual) Eosinophils % (Manual) Basophils % (Manual) Metamyelocytes % (Man) Myelocytes % (Man) Promyelocytes % (Man) Blast Cells % (Manual) Plasma Cell % (Manual) Other Cells % Nucleated RBC % Neutrophils # (Manual) Band Neutrophils # Total Absolute Neuts Lymphocytes # (Manual) Prolymphocyte # Reactive Lymphs # Total Abs Lymphocytes Monocytes # (Manual) Eosinophils # (Manual) Basophils # (Manual) Metamyelocytes # (Man) Myelocytes # (Manual) Promyelocytes # (Man) Blast Cells # (Man) Plasma Cell # (Manual) Other Cells # Nucleated RBCs # (Man) Hypersegmented Neuts Hyposegmented Neuts Hypogranular Neuts Large Granular Lymphs # Lrg Granular Lymphs Hairy Cells Smudge Cells Toxic Granulation Toxic Vacuolation Dohle Bodies Terese Rods Platelet Estimate Hypogranular Platelets Giant Platelets Platelet Satelliting RBC Morphology Polychromasia Hypochromasia Poikilocytosis Basophilic Stippling Anisocytosis Microcytosis Macrocytosis Spherocytes Pappenheimer Bodies Sickle Cells Target Cells Tear Drop Cells Ovalocytes Stomatocytes Lawson-Parmele Bodies Echinocytes Acanthocytes (Spur) Rouleaux Cancelled RBC Agglutinates Cancelled Cancelled Schistocytes Cancelled Cancelled Sezary Cell Cancelled Sodium (136-145) mmol/L Potassium (3.5-5.1) mmol/L Chloride (98-107) mmol/L Carbon Dioxide (21-32) mmol/L Anion Gap (3-11) BUN (6-23) mg/dl Creatinine (0.6-1.4) mg/dl Est Cr Clr Drug Dosing ml/min Est GFR ( Amer) ml/min Est GFR (Non-Af Amer) ml/min BUN/Creatinine Ratio (10-20) Glucose (70-99(Fasting)) mg/dl Calcium (8.6-10.3) mg/dl Total Bilirubin (0.2-1.0) mg/dl AST (13-39) U/L ALT (7-52) U/L Alkaline Phosphatase (34-104) U/L Troponin I High Sens (0-20) pg/ml B-Natriuretic Peptide (0-100) pg/ml Total Protein (6.0-8.3) gm/dl Albumin (3.4-5.0) gm/dl Globulin (2.5-4.0) gm/dl Albumin/Globulin Ratio (0.9-2) Lipase (11-82) U/L Blood Parasites ID 11/13/23 11/13/23 11/13/23 Range/Units 08:55 08:55 08:58 WBC RBC Hgb Hct MCV MCH MCHC RDW Std Deviation RDW Coeff of Victor Hugo Plt Count MPV Immature Gran % (Auto) Neut % (Auto) Lymph % (Auto) Kaufman % (Auto) Eos % (Auto) Baso % (Auto) Neut # (Auto) Lymph # (Auto) Kaufman # (Auto) Eos # (Auto) Baso # (Auto) Immature Gran # (Auto) Absolute Nucleated RBC Nucleated RBC % (auto) Neutrophils % (Manual) Band Neutrophils % Lymphocytes % (Manual) Prolymphocyte % Reactive Lymphs % (Man) Monocytes % (Manual) Eosinophils % (Manual) Basophils % (Manual) Metamyelocytes % (Man) Myelocytes % (Man) Promyelocytes % (Man) Blast Cells % (Manual) Plasma Cell % (Manual) Other Cells % Nucleated RBC % Neutrophils # (Manual) Band Neutrophils # Total Absolute Neuts Lymphocytes # (Manual) Prolymphocyte # Reactive Lymphs # Total Abs Lymphocytes Monocytes # (Manual) Eosinophils # (Manual) Basophils # (Manual) Metamyelocytes # (Man) Myelocytes # (Manual) Promyelocytes # (Man) Blast Cells # (Man) Plasma Cell # (Manual) Other Cells # Nucleated RBCs # (Man) Hypersegmented Neuts Hyposegmented Neuts Hypogranular Neuts Large Granular Lymphs # Lrg Granular Lymphs Hairy Cells Smudge Cells Toxic Granulation Toxic Vacuolation Dohle Bodies Terese Rods Platelet Estimate Hypogranular Platelets Giant Platelets Platelet Satelliting RBC Morphology Polychromasia Hypochromasia Poikilocytosis Basophilic Stippling Anisocytosis Microcytosis Macrocytosis Spherocytes Pappenheimer Bodies Sickle Cells Target Cells Tear Drop Cells Ovalocytes Stomatocytes Lawson-Parmele Bodies Echinocytes Acanthocytes (Spur) Rouleaux RBC Agglutinates Schistocytes Sezary Cell Cancelled Sodium 142 (136-145) mmol/L Potassium 3.6 (3.5-5.1) mmol/L Chloride 110 H (98-107) mmol/L Carbon Dioxide 28 (21-32) mmol/L Anion Gap 4 (3-11) BUN 11 (6-23) mg/dl Creatinine 0.97 (0.6-1.4) mg/dl Est Cr Clr Drug Dosing 51.9 ml/min Est GFR ( Amer) 81.0 ml/min Est GFR (Non-Af Amer) 69.9 ml/min BUN/Creatinine Ratio 11.3 (10-20) Glucose 93 (70-99(Fasting)) mg/dl Calcium 9.1 (8.6-10.3) mg/dl Total Bilirubin 0.5 (0.2-1.0) mg/dl AST 12 L (13-39) U/L ALT 10 (7-52) U/L Alkaline Phosphatase 72 (34-104) U/L Troponin I High Sens 12.2 (0-20) pg/ml B-Natriuretic Peptide 352 H (0-100) pg/ml Total Protein 6.3 (6.0-8.3) gm/dl Albumin 4.0 (3.4-5.0) gm/dl Globulin 2.3 L (2.5-4.0) gm/dl Albumin/Globulin Ratio 1.7 (0.9-2) Lipase 33 (11-82) U/L Blood Parasites ID Cancelled Cancelled 11/13/23 Range/Units 11:16 WBC RBC Hgb Hct MCV MCH MCHC RDW Std Deviation RDW Coeff of Victor Hugo Plt Count MPV Immature Gran % (Auto) Neut % (Auto) Lymph % (Auto) Kaufman % (Auto) Eos % (Auto) Baso % (Auto) Neut # (Auto) Lymph # (Auto) Kaufman # (Auto) Eos # (Auto) Baso # (Auto) Immature Gran # (Auto) Absolute Nucleated RBC Nucleated RBC % (auto) Neutrophils % (Manual) Band Neutrophils % Lymphocytes % (Manual) Prolymphocyte % Reactive Lymphs % (Man) Monocytes % (Manual) Eosinophils % (Manual) Basophils % (Manual) Metamyelocytes % (Man) Myelocytes % (Man) Promyelocytes % (Man) Blast Cells % (Manual) Plasma Cell % (Manual) Other Cells % Nucleated RBC % Neutrophils # (Manual) Band Neutrophils # Total Absolute Neuts Lymphocytes # (Manual) Prolymphocyte # Reactive Lymphs # Total Abs Lymphocytes Monocytes # (Manual) Eosinophils # (Manual) Basophils # (Manual) Metamyelocytes # (Man) Myelocytes # (Manual) Promyelocytes # (Man) Blast Cells # (Man) Plasma Cell # (Manual) Other Cells # Nucleated RBCs # (Man) Hypersegmented Neuts Hyposegmented Neuts Hypogranular Neuts Large Granular Lymphs # Lrg Granular Lymphs Hairy Cells Smudge Cells Toxic Granulation Toxic Vacuolation Dohle Bodies Terese Rods Platelet Estimate Hypogranular Platelets Giant Platelets Platelet Satelliting RBC Morphology Polychromasia Hypochromasia Poikilocytosis Basophilic Stippling Anisocytosis Microcytosis Macrocytosis Spherocytes Pappenheimer Bodies Sickle Cells Target Cells Tear Drop Cells Ovalocytes Stomatocytes Lawson-Parmele Bodies Echinocytes Acanthocytes (Spur) Rouleaux RBC Agglutinates Schistocytes Sezary Cell Sodium (136-145) mmol/L Potassium (3.5-5.1) mmol/L Chloride (98-107) mmol/L Carbon Dioxide (21-32) mmol/L Anion Gap (3-11) BUN (6-23) mg/dl Creatinine (0.6-1.4) mg/dl Est Cr Clr Drug Dosing ml/min Est GFR ( Amer) ml/min Est GFR (Non-Af Amer) ml/min BUN/Creatinine Ratio (10-20) Glucose (70-99(Fasting)) mg/dl Calcium (8.6-10.3) mg/dl Total Bilirubin (0.2-1.0) mg/dl AST (13-39) U/L ALT (7-52) U/L Alkaline Phosphatase (34-104) U/L Troponin I High Sens 11.6 (0-20) pg/ml B-Natriuretic Peptide (0-100) pg/ml Total Protein (6.0-8.3) gm/dl Albumin (3.4-5.0) gm/dl Globulin (2.5-4.0) gm/dl Albumin/Globulin Ratio (0.9-2) Lipase (11-82) U/L Blood Parasites ID Administered Medications Discontinued Medications Aspirin (Aspirin Chew 324 Mg) 324 mg PO NOW STA Stop: 11/13/23 09:04 Last Admin: 11/13/23 09:16 Dose: 324 mg Documented By: KV Imaging Data Radiologist's Impression: Chest X-Ray 11/13/23 09:03 XR chest 1V portable CLINICAL HISTORY: Chest pain, nonspecific COMPARISON STUDY: Chest radiograph December 14, 2022. FINDINGS: Lung volumes are normal. Lungs are clear. There is no pneumothorax or pleural effusion. Cardiomegaly is unchanged. Mediastinal contours are normal. There is no evidence for pulmonary edema. IMPRESSION: No acute cardiopulmonary findings. ACT 112: Negative or not required by law. Electronically signed by: Mike Flores M.D. 11/13/2023 9:23 AM Discharge Plan Visit Data Chief Complaint: Cardiac Assessment Stated Complaint: CHEST DISCOMFORT ED Provider: Gerrity,George P Discharge Problem: Chest pain, Hypertension Forms Stand Alone Forms: My [facility] Prescriptions Prescriptions: No Action ferrous sulfate [FeroSul] 325 mg (65 mg iron) tablet 650 mg PO Q OTHER DAY cholecalciferol (vitamin D3) 50 mcg (2,000 unit) tablet 2,000 unit PO QAM losartan 100 mg tablet 100 mg PO DAILY Qty: 90 3RF carvedilol 25 mg tablet 25 mg PO BID Qty: 180 3RF Rx Instructions: must administer with a meal/food clonidine HCl 0.2 mg tablet 0.2 mg PO BID tamsulosin 0.4 mg capsule 0.4 mg PO DAILY Qty: 90 3RF nystatin-triamcinolone 100,000-0.1 unit/g-% cream 1 applic topical BID Qty: 15 0RF mecobalamin (vitamin B12) 1,000 mcg tablet,disintegrating 500 mcg SL HS Rx Instructions: place tablet under tongue and allow to dissolve for at least30 secs before swallowing cholestyramine (with sugar) 4 gram powder in packet See Rx Instructions .ROUTE .COMPLEX PRN (Reason: Diarrhea) Rx Instructions: DISSOLVE & TAKE 1 PACKAGE BY MOUTH TWICE DAILY NEEDED FOR DIARRHEA . AVOID OTHER MEDS WITHIN 1 HOUR BEFORE OR 4-6 HOURS AFTER DOSE. TAKE WITH MEAL/FOOD pantoprazole 40 mg tablet,delayed release (DR/EC) 40 mg PO DAILY furosemide 40 mg tablet 20 mg PO UD Referrals Referrals: Martín Castorena, [Primary Care Provider] -
[2023-11-13] MEDS: ASPIRIN CHEW 324 MG PO STA (09:16)
--- NOTE | 2023-11-13 09:24 | XRay Report ---
XR chest 1V portable CLINICAL HISTORY: Chest pain, nonspecific COMPARISON STUDY: Chest radiograph December 14, 2022. FINDINGS: Lung volumes are normal. Lungs are clear. There is no pneumothorax or pleural effusion. Car diomegaly is unchanged. Mediastinal contours are normal. There is no evidence for pulmonary edema. IMPRESSION: No acute cardiopulmonary findings. ACT 112: Negative or not required by law. Electronically signed by: Mike Flores M.D. 11/13/2023 9:23 AM
[2023-11-13 09:52] LABS: Albumin Globulin Ratio 1.7 (0.9-2); BUN Creatinine Ratio 11.3 (10-20); Bilirubin,Total 0.5 mg/dl (0.2-1.0); Calcium 9.1 mg/dl (8.6-10.3); Creatinine Clr Calc Pharmacy 51.9 ml/min; Est GFR (Non-African American) 69.9 ml/min; Globulin 2.3 gm/dl (2.5-4.0); Potassium 3.6 mmol/L (3.5-5.1); Total Protein 6.3 gm/dl (6.0-8.3)
[2023-11-13 09:58] LABS: Troponin I High Sensitivity 12.2 pg/ml (0-20)
[2023-11-13 11:05] LABS: Basophils # (auto) 0.02 K/uL (0.00-0.20); Basophils % (auto) 0.4 %; Eosinophils # (auto) 0.07 K/uL (0.00-0.50); Eosinophils % (auto) 1.5 %; Hematocrit (blood only) 35.8 % (42.0-52.0); Immature Granulocytes # (auto) 0.02 K/uL (0.01-0.20); Immature Granulocytes % (auto) 0.4 %; Lymphocytes # (auto) 0.74 K/uL (1.20-3.40); Lymphocytes % (auto) 15.5 %; Mean Corpuscular Hemoglobin 27.2 pg (25.0-34.0); Mean Corpuscular Hgb Conc 30.7 g/dL (32.0-36.0); Mean Corpuscular Volume 88.4 fL (80.0-100.0); Monocytes # (auto) 0.52 K/uL (0.11-0.59); Monocytes % (auto) 10.9 %; Neutrophils # (auto) 3.41 K/uL (1.40-6.50); Neutrophils % (auto) 71.3 %; Platelet Count 189 K/uL (130-400); RDW Coefficient of Variation 14.7 % (11.5-14.5); RDW Standard Deviation 46.7 fL (36.4-46.3); Red Blood Count 4.05 M/uL (4.70-6.10); White Blood Count 4.78 K/ul (4.8-10.8)
--- NOTE | 2023-11-13 12:39 | History & Physical Report ---
Date of Service November 13, 2023 Assessment & Plan (1) Hypertension: Plan: -Admit to the PCU on tele -Currently hypertensive at but asymptomatic and otherwise stable -At this time his uncontrolled HTN is most likely due to stopping diuretic therapy without starting another antihypertensive -Spoke with his Client Support Representative, Dr. Estrada, appreciate his assistance in management moving forward >Recommends continuing Carvedilol and Losartan at current doses >Would up-titrate patient's clonidine >Obtain repeat TTE >Patient may need a heart catheterization based on ongoing workup -Will continue Carvedilol and losartan -Will continue 0.2 mg Clonidine BID >Will start 0.1 mg Clonidine at 1300 in addition to 0.2 mg BID -Cardiology consult and TTE ordered -SQ lovenox for DVT PPX -HH diet with 2gm sodium restriction -AM CBC, CMP, mag, PT/INR (2) Chest pain: Plan: -Patient's pain consistently starts in the epigastric region with radiation up the substernal region -No other radiation of the pain, describes it as reflux -Denies symptoms occurring consistently with exertion, symptoms have somewhat improved with prilosec and pantoprazole use -Has a known hx of gastritis, GERD, Duodenal ulcer, and Hiatial hernia -Patient has had 2 stable high sen trops, no significant ECG changes compared to previous -His symptoms seem more consistent with reflux/gastritis/possible ulcer than cardiac at this time, but we will continue his cardiac workup/monitoring at this time -Will start QID Carafate in additional to his daily pantoprazole -Monitor on tele and monitor repeat TTE -Cardiology consult placed (3) GERD (gastroesophageal reflux disease): Plan: -See chest pain (4) Swelling of lower extremity: Plan: -Long hx of venous stasis with right > left -Swelling consistently improves with elevation, compression socks, and diuretics -Had a negative venous doppler of the RLE on 09/29/23 -Continue compression stockings and elevation at this time Plan The patient was discussed with Dr. Freeman at the time of the admission History of Present Illness Chief Complaint: Intermittent chest pain Primary Care Provider: Martín Castorena DO Arun is an 88 year old male with a PMH significant for HTN, HFrEF (LVEF of 34-40%), LBBB, moderate aortic stenosis, Prostate cancer S/P beam radiation therapy, GERD, and senile dementia of Alzheimers Type who presented to the [facility] ED on 11/13/23 with approximately 2 weeks of intermittent BL chest pain. He was noted to be hypertensive on arrival at 209/92, tachypneic at 26, bradycardic with HR in the 50s, but otherwise stable. Labs were significant for a BNP of 352, initial high sen trop of 12 11.6 on 2 hour repeat. Chest xray was read as negative for acute findings. ECG showed NSR with new RBBB and possible age indeterminate inferior and anterolateral infarcts. The ED spoke with Cardiology who recommended admission for better BP management and repeat echo. Prior to admission the patient was given 324 mg Aspirin. At the time of the exam the patient was sitting in bed in no acute distress. States that he has been experiencing intermittent epigastric abdominal pain which radiates up the chest in the substernal region. Feels like heartburn, lasts for a few minutes, will either resolve on it's own or when he takes Prilosec. Denies recent symptoms with exertion and denies any other radiation of the pain. Last night he took prilosec before bed and was able to sleep throu ghout the night. Was supposed to go golfing this am but decided to come to the ED for evaluation as he didn't feel "quite right". Has a hx of duodenal ulcer and hiatial hernia. Recent antihypertensive regimen has been 0.2 mg clonidine BID, 100 mg Losartan daily, and 25 mg Carvedilol BID. Had been on daily lasix for LE swelling right > left. He was switched to 25 mg HCTZ/Spironolactone instead of lasix which significantly improved his swelling. However, he experiencing lower BP's with systolics in the 100's and mild lightheadedness with standing. He called the Cardiology office who told him to hold the HCTZ/spironolactone and did not recommend he restart the lasix. Denies recent fever, chills cough, nausea, vomiting, abd pain, dysuria, hematuria, melena, and recent trauma. He is a DNR/DNI. He confirms he did have his am antihypertensives this am prior to arrival. Please refer to Dr. Freeman's attestation for any changes to the treatment plan Allergies Allergy/AdvReac Type Severity Reaction Status Date / Time penicillin G Allergy Unknown "YEARS Verified 10/09/23 13:56 AGO" - UNKNOWN Sulfa (Sulfonamide Allergy Unknown "YEARS Verified 10/09/23 13:56 Antibiotics) AGO" UNKNOWN REACTION Home Medications Medication Instructions Recorded Confirmed Type ferrous sulfate 325 mg (65 mg 650 mg PO Q OTHER DAY 10/10/18 11/13/23 History iron) tablet (FeroSul) mecobalamin (vitamin B12) 1,000 500 mcg sublingual HS 02/16/20 11/13/23 History mcg disintegrating tablet,sublingual cholecalciferol (vitamin D3) 50 2,000 unit PO QAM 11/08/22 11/13/23 History mcg (2,000 unit) tablet pantoprazole 40 mg tablet,delayed 40 mg PO DAILY 12/11/22 11/13/23 History release cholestyramine (with sugar) 4 gram See Rx Instructions .Route 12/14/22 11/13/23 History powder for susp in a packet .COMPLEX PRN Diarrhea losartan 100 mg tablet 100 mg PO DAILY #90 tabs 12/18/22 11/13/23 Rx carvedilol 25 mg tablet 25 mg PO BID #180 tabs 04/18/23 11/13/23 Rx nystatin-triamcinolone 100,000 1 applic topical BID #15 grams 09/20/23 11/13/23 Rx unit/g-0.1 % topical cream tamsulosin 0.4 mg capsule 0.4 mg PO DAILY #90 caps 09/20/23 11/13/23 Rx clonidine HCl 0.2 mg tablet 0.2 mg PO BID 10/04/23 11/13/23 History furosemide 40 mg tablet 20 mg PO UD 11/13/23 11/13/23 History Past Med/Surg History Medical History Lower urinary tract symptoms Cerumen impaction SDAT (senile dementia of Alzheimer's type) History of COVID-19 Dysphagia Stasis dermatitis of both legs Heart murmur Lumbar degenerative disc disease Erectile dysfunction GERD (gastroesophageal reflux disease) Aortic stenosis IBS (irritable bowel syndrome) Mitral regurgitation Tubular adenoma of colon Osteoarthritis Prostate cancer Malignant melanoma of skin of nose Hypertension Anemia Bowel obstruction Duodenal ulcer Surgical History History of removal of cyst History of repair of left rotator cuff History of surgical removal of pilonidal cyst History of colonoscopy History of esophagogastroduodenoscopy (EGD) History of Mohs micrographic surgery for skin cancer History of prostate biopsy History of bilateral cataract extraction History of appendectomy History of eyelid surgery History of bowel resection Family History Grandfather No problems noted. Grandmother No problems noted. Grandfather No problems noted. Grandmother No problems noted. Father No problems noted. Sister No problems noted. Brother No problems noted. Brother Stomach cancer Sister No problems noted. Sister No problems noted. Son Age: 65 No problems noted. Daughter Age: 56 No problems noted. Son Age: 61 No problems noted. Son Age: 55 No problems noted. Other No family history of adverse response to anesthesia Denies family history of Ovarian cancer Prostate cancer Coronary heart disease Myocardial infarction Breast cancer Colorectal cancer Social History Smoking Status: Former smoker Tobacco Type: Cigarettes Age Started Using Tobacco: 13; Age Quit Using Tobacco: 49; packs per day: 2; Cigarettes Per Day: 40; Second Hand Exposure: No; Do You Dip or Chew Tobacco: No; Hx Alcohol Use: No Hx Substance Use: No Preferred Language: Kazakh Communication Ability: Effective Visual Impairment: No Limitations Hearing Ability: Hard of Hearing Provisioning Analyst Required: No Beliefs That Will Affect Care: None marital status: / Current Living Situation: Alone Current Living Situation Comment: in 2020 current occupational status: retired How many Children do You have: 4 Feels Safe at Home: Yes Childhood Exposure to Second-Hand Smoke: Yes Diet: low salt and other Diet Comment: low fiber caffeine: Yes (3 cups a day) during the past year weight has: remained stable Dental Care, Regularly: Yes Physical Activity Frequency: Does not Exercise Seatbelt Use: always Sunscreen Use: No Assistive Devices: Glasses Physical Exam Physical Exam: Physical Exam: General: In no acute distress, stated age, well-nourished, good hygiene HEENT: Normocephalic, atraumatic, no scleral icterus, pupils around round, symmetrical, and reactive to light, moist mucus membranes, trachea midline, no thyromegaly Chest/Pulm: No respiratory distress, symmetrical chest expansion, clear breath sounds throughout Cardiac: RRR, 4/6 systolic murmur noted, loudest in the aortic region Abdomen: Negative for ascites and bruising, normoactive bowel sounds, soft, tenderness with palpation of the epigastric region but otherwise non-tender Musculoskeletal: Symmetrical and without signs of acute trauma, upper and lower extremities with full ROM, no atrophy, spasticity, or flaccidity Extremities: Radial, dorsalis pedis, and posterior tibial pulses are intact and symmetrical, trace pitting edema noted in the BL LE's right > left (is his baseline) Skin: Warm, dry, no rashes , lesions, or scars noted Neuro: Alert and oriented to person, place, month, year, and president, no focal defects,no tremors noted Psych: No acute distress, calm and cooperative during the exam Results & Data Results & Data Vital Signs (Past 12 Hours) Vital Signs Temp Pulse Pulse Resp BP BP Pulse Ox 11/13/23 12:29 53 L 15 202/89 H 11/13/23 10:20 52 L 17 11/13/23 10:10 51 L 16 11/13/23 10:00 52 L 27 H 11/13/23 09:50 53 L 22 11/13/23 09:40 56 L 16 11/13/23 09:30 65 26 H 100 11/13/23 09:26 62 11/13/23 09:20 61 17 100 11/13/23 09:18 61 24 99 11/13/23 09:18 209/96 H 11/13/23 09:12 99 11/13/23 09:00 63 15 218/107 H 100 11/13/23 08:44 36.9 C 66 18 209/92 H 99 O2 Del Method O2 Flow Rate 11/13/23 12:29 11/13/23 10:20 11/13/23 10:10 11/13/23 10:00 11/13/23 09:50 11/13/23 09:40 11/13/23 09:30 11/13/23 09:26 11/13/23 09:20 11/13/23 09:18 11/13/23 09:18 11/13/23 09:12 Room Air 0 11/13/23 09:00 Room Air 11/13/23 08:44 Room Air Laboratory Results Abnormal lab results 11/13/23 11/13/23 Range/Units 08:55 08:58 WBC 4.78 L (4.8-10.8) K/ul RBC 4.05 L (4.70-6.10) M/uL Hgb 11.0 L (14.0-18.0) g/dl Hct 35.8 L (42.0-52.0) % MCHC 30.7 L (32.0-36.0) g/dL RDW Std Deviation 46.7 H (36.4-46.3) fL RDW Coeff of Victor Hugo 14.7 H (11.5-14.5) % Lymph # (Auto) 0.74 L (1.20-3.40) K/uL Chloride 110 H (98-107) mmol/L AST 12 L (13-39) U/L B-Natriuretic Peptide 352 H (0-100) pg/ml Globulin 2.3 L (2.5-4.0) gm/dl Diagnostic Findings Chest X-Ray 11/13/23 09:03 XR chest 1V portable CLINICAL HISTORY: Chest pain, nonspecific COMPARISON STUDY: Chest radiograph December 14, 2022. FINDINGS: Lung volumes are normal. Lungs are clear. There is no pneumothorax or pleural effusion. Cardiomegaly is unchanged. Mediastinal contours are normal. There is no evidence for pulmonary edema. IMPRESSION: No acute cardiopulmonary findings. ACT 112: Negative or not required by law. Electronically signed by: Mike Flores M.D. 11/13/2023 9:23 AM ECG Additional Comments: Normal sinus rhythm Left axis deviation Right bundle branch block Minimal voltage criteria for LVH, may be normal variant ( R in aVL ) Possible Inferior infarct , age undetermined Anterolateral infarct , age undetermined Abnormal ECG When compared with ECG of 14-DEC-2022 20:34, Premature ventricular complexes are no longer Present Right bundle branch block is now Present ... Code Status & VTE Plan Code Status DNR/DNI VTE Prophylaxis Plan VTE Prophylaxis will be ordered: Yes Supervising Physician Co-Signing Physician Notes Patient seen and examined, chart reviewed, case discussed with George Hinds and I agree with the assessment and plan as above except as otherwise noted above. PG Care Time/CCT Total # of Minutes Spent Total Time Spent with Patient: Total time spent is greater than 50% in coordination of care (as documented) at patient's floor/unit and/or counseling patient: Coding [place] [address] INT INP/OBS CARE 3/75MIN Patient Type Established Medical Decision Making High Complexity Diagnoses Hypertension I10 Chest pain R07.9 GERD (gastroesophageal reflux disease) K21.9 Swelling of lower extremity M79.89
--- NOTE | 2023-11-13 13:36 | Electrocardiogram Report ---
Test Reason : Blood Pressure : / mmHG Vent. Rate : 068 BPM Atrial Rate : 068 BPM P-R Int : 200 ms QRS Dur : 152 ms QT Int : 402 ms P-R-T Axes : 061 -31 -49 degrees QTc Int : 427 ms Normal sinus rhythm Left axis deviation Right bundle branch block Minimal voltage criteria for LVH, may be normal variant Anterolateral infarct , age undetermined Abnormal ECG When compared with ECG of 14-DEC-2022 20:34, Premature ventricular complexes are no longer Present Right bundle branch block is now Present Anterolateral infarct is now Present Confirmed by Adithya Isbell ([id number]) on 11/13/2023 1:36:30 PM Referred By: Confirmed By:Michael Isbell
[2023-11-13] MEDS: PANTOprazole 40 MG TAB PO STA (13:50)
[2023-11-13] MEDS: cloNIDine HCL 0.1 MG TAB PO STA (13:51)
[2023-11-13] MEDS: SUCRALFATE 1 GM TAB PO STA (13:51)
--- NOTE | 2023-11-13 15:02 | XCELERA ---
[id number] \\[id number]
[2023-11-13] MEDS ORDERED: CHOLESTYRAMINE LIGHT 4 GM PKT PO PRN (15:56)
[2023-11-13] MEDS: ENOXAPARIN INJ 40 MG/0.4 ML SYR SQ SCH (16:44)
[2023-11-13] MEDS: SUCRALFATE 1 GM TAB PO SCH (16:44)
[2023-11-13] MEDS: carvediloL 25 MG TAB PO SCH (16:54)
[2023-11-13] MEDS: cloNIDine HCL 0.1 MG TAB PO SCH (21:42)
[2023-11-13] MEDS: ACETAMINOPHEN 325 MG TAB PO PRN (21:57)
--- NOTE | 2023-11-14 07:54 | Hospitalist Progress Note ---
Date of Service November 14, 2023 Assessment & Plan (1) Hypertension: Plan: Arun is an 88 year old male with a PMH significant for HTN, HFrEF (LVEF of 34-40%), LBBB, moderate aortic stenosis, Prostate cancer S/P beam radiation therapy, GERD, and senile dementia of Alzheimers Type who presented to the [facility] ED on 11/13/23 with approximately 2 weeks of intermittent BL chest pain. He was noted to be hypertensive on arrival at 209/92 Hypertensive urgency - treated in ED and early on in admission and resolved. I do not think his chest pain was cardiac nor related to the hypertension. -cont carvedilol and losartan -clonidine increased to 0.2/0.1/0.2 [address] admission discussion with Dr[address] Estrada -resumed HCTZ/spironolactone but reduced to half tab daily (alternately 1 tab every other day) -follow up with PCP and public speaking teacher (2) Chest pain: Plan: -initially developed pain in R>L shoulders and accross upper chest after resuming golfing and going bowling - has been ongoing several weeks. Was taking frequent nsaids for this pain. -Has a known hx of gastritis, GERD, Duodenal ulcer, and Hiatial hernia -troponins were negative, no significant ECG changes compared to previous, TTE without wma's and EF improved compared to last one in August 2023 -upper chest / shoulder pain consistent with musculoskeletal pain and some epigastric pain GI in origin -Dr. Isbell consulted, no further testing recommended at this time, recommended consider SGLT-2 -follow up with Dr. Estrada for epigastric pain - likely NSAID induced gastritis -continue PPI and advised stopping nsaids -recommended voltaran gel and acetaminophen for MSK pain -follow up with PCP - consider referral for shoulder injection if still not improving (3) HFrEF (heart failure with reduced ejection fraction): Plan: Was not in exacerbation and was euvolemic Repeat TTE with some improvement in EF TTE 09/22 with EF 35-40%, mod , mild-mod AI, mod MR, mild diastolic dysfunction and mild concentric LVH -on b-wseta and ARB, diuretics resumed at lower dose as above, consider SGLT-2 (4) GERD (gastroesophageal reflux disease): Plan: -See chest pain (5) Swelling of lower extremity: Plan: -Long hx of venous stasis with right > left -Swelling consistently improves with elevation, compression socks, and diuretics -Had a negative venous doppler of the RLE on 09/29/23 -Continue compression stockings and elevation at this time, low dose diuretic resumed (6) Aortic stenosis: Plan: moderate, with mild-mod AR Admission and Anticipated Discharge Date Admission Date: November 13, 2023 Subjective no chest pain currently, only R>L shoulder pain no dyspnea Physical Exam 2 Physical Exam: PHYSICAL EXAMINATION Last 24h vital signs reviewed, see documentation in flowsheet General: comfortable appearing, no distress HEENT: Normocephalic, atraumatic, pupils round and equal, sclerae anicteric, no conjunctival injection, moist mucus membranes Lungs: Normal respiratory effort. Clear to auscultation bilaterally. No RRW Heart: Regular rate and rhythm, no murmurs. No JVD Abdomen: Soft, nontender, nondistended. Bowel sounds present. Extremities: Warm, dry, well-perfused. No extremity edema. Both shoulders mildly tender anteriorly but no erythema or effusion on exam Neuro: Alert and oriented x 4, face symmetric, moves 4 extremities well Psych: Normal affect and behavior Results & Data Results & Data Vital Signs (Past 12 Hours) Vital Signs Temp Pulse Pulse Resp BP Pulse Ox O2 Del Method 11/14/23 02:41 36.5 C 56 L 18 165/70 H 95 Room Air 11/14/23 00:21 Room Air 11/13/23 22:35 70 170/62 H 11/13/23 22:23 61 11/13/23 21:34 36.5 C 68 16 205/93 H 97 Room Air 11/13/23 21:32 70 Laboratory Results 11/13/23 08:55 11/13/23 08:55 PG Care Time/CCT Total # of Minutes Spent Total Time Spent with Patient: Total time spent is greater than 50% in coordination of care (as documented) at patient's floor/unit and/or counseling patient: Coding Level of Care Code None Diagnoses Hypertension I10 Chest pain R07.9 HFrEF (heart failure with reduced ejection fraction) I50.20 GERD (gastroesophageal reflux disease) K21.9 Swelling of lower extremity M79.89 Aortic stenosis I35.0
[2023-11-14 08:05] LABS: Basophils # (auto) 0.01 K/uL (0.00-0.20); Basophils % (auto) 0.2 %; Eosinophils # (auto) 0.08 K/uL (0.00-0.50); Eosinophils % (auto) 1.8 %; Hematocrit (blood only) 31.2 % (42.0-52.0); Hemoglobin 10.2 g/dl (14.0-18.0); Immature Granulocytes # (auto) 0.01 K/uL (0.01-0.20); Immature Granulocytes % (auto) 0.2 %; Lymphocytes # (auto) 0.66 K/uL (1.20-3.40); Lymphocytes % (auto) 14.5 %; Mean Corpuscular Hemoglobin 27.5 pg (25.0-34.0); Mean Corpuscular Hgb Conc 32.7 g/dL (32.0-36.0); Mean Corpuscular Volume 84.1 fL (80.0-100.0); Mean Platelet Volume 10.8 fL (9.4-12.4); Monocytes # (auto) 0.44 K/uL (0.11-0.59); Monocytes % (auto) 9.7 %; Neutrophils # (auto) 3.34 K/uL (1.40-6.50); Neutrophils % (auto) 73.6 %; Platelet Count 172 K/uL (130-400); RDW Coefficient of Variation 14.6 % (11.5-14.5); RDW Standard Deviation 43.9 fL (36.4-46.3); Red Blood Count 3.71 M/uL (4.70-6.10); White Blood Count 4.54 K/ul (4.8-10.8)
[2023-11-14 08:40] LABS: Albumin Globulin Ratio 1.8 (0.9-2); Albumin Level 3.5 gm/dl (3.4-5.0); BUN Creatinine Ratio 12.1 (10-20); Bilirubin,Total 0.5 mg/dl (0.2-1.0); Calcium 8.7 mg/dl (8.6-10.3); Creatinine Clr Calc Pharmacy 43.4 ml/min; Est GFR (African American) 65.3 ml/min; Est GFR (Non-African American) 56.3 ml/min; Magnesium 1.5 mg/dl (1.7-2.4); Potassium 3.7 mmol/L (3.5-5.1); Total Protein 5.5 gm/dl (6.0-8.3)
[2023-11-14] MEDS: PANTOprazole 40 MG TAB PO SCH (08:42)
[2023-11-14] MEDS: FERROUS SULFATE 325 MG TAB PO SCH (08:42)
[2023-11-14] MEDS: TAMSULOSIN HCL 0.4 MG CAP PO SCH (08:42)
[2023-11-14] MEDS: cloNIDine HCL 0.1 MG TAB PO SCH (12:09)
[2023-11-14] MEDS: MAGNESIUM SULFATE / D5W 1 GM/100 ML BAG IV SCH (12:09)
[2023-11-14 15:32] VITALS: BP 161/73; PULSE 75; RESP 16; TEMP 98.1; O2SAT 95
--- NOTE | 2023-11-14 15:53 | Cardiology Consultation ---
Date of Consultation November 14, 2023 Assessment & Plan (1) Chest pain: (2) Hypertension: (3) Cardiomyopathy: (4) Valvular heart disease: Plan 1. Chest pain: I think we can be confident that this is musculoskeletal in nature. It has been prolonged in duration over several weeks without any elevation in the cardiac biomarkers. Additionally, he is tender on palpation, the symptoms are positional and somewhat pleuritic. I think this can be treated symptomatic lately. Unfortunately, he appears to have had some side effect from chronic use of ibuprofen. Tylenol appears ineffective. Perhaps low-dose narcotics would be a reasonable option. 2. Cardiomyopathy: He is known to have an element of mildly reduced LV systolic function. Slightly improved from an echocardiogram performed in August of this year. Currently on carvedilol and losartan. I think would be reasonable to add an SG LT 2 inhibitor as well. Overall appears to be well compensated without evidence of pulmonary vascular congestion or exertional dyspnea. 3. Valvular heart disease: He has an element of aortic stenosis and mitral regurgitation. Neither of which are severe. 4. Hypertension: Notably hypertensive at the time of admission. However, he recently discontinued some medication. This was due to perceived side effect of fatigue. However, the blood pressure. We well controlled and his edema improved significantly on combination of spironolactone hydrochlorothiazide. Perhaps he can take half a tablet daily and monitor the effect. History of Present Illness Reason for Consultation: Chest pain, hypertension Requesting Physician: Lizet Attending Physician: Kerry Bonner MD History of Present Illness The patient is an 88-year-old gentleman with a history of hypertension and valvular heart disease who presented to the hospital with symptoms of chest p ain. The patient is quite active. He golfs regularly and often times walks on the golf course rather than riding in a cart. He can perform other activities such as extended walking without significant limitation. Occasionally he has an element of fatigue but does not have exertional chest pain or limiting dyspnea. No recent symptoms of palpitations. No dizziness or lightheadedness or recent syncope. Over the past few weeks the patient has been having discomfort primarily in both shoulders. This pain seems to radiate and word towards the chest. He has been taking some ibuprofen for relief. This is improved as symptoms mildly but not completely. Yesterday due to the persistent and recurrent nature of his symptoms he presented to the emergency room for evaluation. He was noted to be significantly hypertensive as well. Curiously, he was recently prescribed a different antihypertensive in order to improve lower extremity edema. Apparently this worked quite effectively but reduce his blood pressure enough that he felt somewhat fatigued and tired. He did not report overt orthostatic type symptoms. Currently feeling well. He has been up out of bed. He states that the lower extremity edema is present but mild. He continues to have symptoms of chest discomfort if he moves a certain way or takes deep breaths. Allergies Allergy/AdvReac Type Severity Reaction Status Date / Time penicillin G Allergy Unknown "YEARS Verified 10/09/23 13:56 AGO" - UNKNOWN Sulfa (Sulfonamide Allergy Unknown "YEARS Verified 10/09/23 13:56 Antibiotics) AGO" UNKNOWN REACTION Home Medications Medication Instructions Recorded Confirmed Type ferrous sulfate 325 mg (65 mg 650 mg PO Q OTHER DAY 10/10/18 11/13/23 History iron) tablet (FeroSul) mecobalamin (vitamin B12) 1,000 500 mcg sublingual HS 02/16/20 11/13/23 History mcg disintegrating tablet,sublingual cholecalciferol (vitamin D3) 50 2,000 unit PO QAM 11/08/22 11/13/23 History mcg (2,000 unit) tablet pantoprazole 40 mg tablet,delayed 40 mg PO DAILY 12/11/22 11/13/23 History release cholestyramine (with sugar) 4 gram See Rx Instructions .Route 12/14/22 11/13/23 History powder for susp in a packet .COMPLEX PRN Diarrhea losartan 100 mg tablet 100 mg PO DAILY #90 tabs 12/18/22 11/13/23 Rx carvedilol 25 mg tablet 25 mg PO BID #180 tabs 04/18/23 11/13/23 Rx nystatin-triamcinolone 100,000 1 applic topical BID #15 grams 09/20/23 11/13/23 Rx unit/g-0.1 % topical cream tamsulosin 0.4 mg capsule 0.4 mg PO DAILY #90 caps 09/20/23 11/13/23 Rx clonidine HCl 0.2 mg tablet 0.2 mg PO BID 10/04/23 11/13/23 History furosemide 40 mg tablet 20 mg PO UD 11/13/23 11/13/23 History Patient History Medical History (Updated 11/14/23 @ 15:50 by Adithya Isbell MD) HFrEF (heart failure with reduced ejection fraction) Lower urinary tract symptoms Cerumen impaction SDAT (senile dementia of Alzheimer's type) History of COVID-19 07/2021- DRY COUGH, FATIGUE, NO HOSPITALIZATION, NO CURRENT ISSUES Dysphagia Stasis dermatitis of both legs Heart murmur follows w/ Dr Estrada last visit 03/2022 Lumbar degenerative disc disease Erectile dysfunction GERD (gastroesophageal reflux disease) Aortic stenosis Moderate 07/2019 IBS (irritable bowel syndrome) Mitral regurgitation Tubular adenoma of colon Osteoarthritis Prostate cancer 04/2018--radiation Malignant melanoma of skin of nose Hypertension Anemia Bowel obstruction History of 11 sbo, 6 surgeries. Last sbo October,, resolved with conservative mgmt. Duodenal ulcer hx Surgical History History of removal of cyst off of face History of repair of left rotator cuff History of surgical removal of pilonidal cyst History of colonoscopy removal of polyp History of esophagogastroduodenoscopy (EGD) History of Mohs micrographic surgery for skin cancer History of prostate biopsy x3--malignant History of bilateral cataract extraction History of appendectomy History of eyelid surgery bilt History of bowel resection "x6" Family History Grandfather No problems noted. Grandmother No problems noted. Grandfather No problems noted. Grandmother No problems noted. Father No problems noted. Sister No problems noted. Brother No problems noted. Brother Stomach cancer Sister No problems noted. Sister No problems noted. Son Age: 65 No problems noted. Daughter Age: 56 No problems noted. Son Age: 61 No problems noted. Son Age: 55 No problems noted. Other No family history of adverse response to anesthesia Denies family history of Ovarian cancer Prostate cancer Coronary heart disease Myocardial infarction Breast cancer Colorectal cancer Social History Smoking Status: Former smoker Tobacco Type: Cigarettes Age Started Using Tobacco: 13; Age Quit Using Tobacco: 49; packs per day: 2; Cigarettes Per Day: 40; Smoking End Date: 40 years ago; Second Hand Exposure: No; Do You Dip or Chew Tobacco: No; Hx Alcohol Use: No Hx Substance Use: No Preferred Language: Vietnamese Communication Ability: Effective Visual Impairment: No Limitations Hearing Ability: Hard of Hearing Fiscal Services Manager Required: No Beliefs That Will Affect Care: None marital status: / Current Living Situation: Alone Current Living Situation Comment: in 2020 current occupational status: retired How many Children do You have: 4 Other Information That Helps Us Care for You: No Feels Safe at Home: Yes Safety Concerns: Feels Safe At This Time Childhood Exposure to Second-Hand Smoke: Yes Diet: low salt and other Diet Comment: low fiber caffeine: Yes (3 cups a day) during the past year weight has: remained stable Dental Care, Regularly: Yes Physical Activity Frequency: Does not Exercise Seatbelt Use: always Sunscreen Use: No Assistive Devices: Glasses Review of Systems Review of Systems: Per HPI Physical Exam Physical Exam: The patient is alert and oriented. Mood and affect appeared normal. He answered all questions appropriately. HEENT: Pupils are equal and reactive to light and accommodation. Extraocular movements are intact. The sclerae are anicteric. Neuro: Cranial nerves intact Lungs: Clear to auscultation bilaterally. He has good air movement without use of accessory muscles. No rales wheezes or rhonchi. Chest: Tender to palpation in the shoulders bilaterally. Mild tenderness across the precordium. Cardiac: Heart demonstrates a regular rate and rhythm. Normal S1 and S2. Crescendo systolic murmur. Pulses: The patient has palpable radial pulses bilaterally that are equal in intensity Extremities: There was no evidence of hypoperfusion. There is no cyanosis or clubbing. Right lower extremity slightly more edematous than the left. Skin: I did not appreciate any rashes on examination today. Results & Data Vital Signs (Past 12 Hours) Vital Signs Temp Pulse Pulse Resp BP Pulse Ox O2 Del Method 11/14/23 15:31 36.7 C 75 16 161/73 H 95 Room Air 11/14/23 12:00 36.6 C 77 18 155/77 H 98 Room Air 11/14/23 08:00 62 11/14/23 07:00 36.5 C 62 16 159/74 H 96 Room Air Laboratory Results Abnormal Lab Results 04/17/24 07:24 WBC 4.54 L RBC 3.71 L Hgb 10.2 L Hct 31.2 L MCV 84.1 MCH 27.5 MCHC 32.7 RDW Std Deviation 43.9 RDW Coeff of Victor Hugo 14.6 H Plt Count 172 MPV 10.8 Immature Gran % (Auto) 0.2 Neut % (Auto) 73.6 Lymph % (Auto) 14.5 [place] % (Auto) 9.7 Eos % (Auto) 1.8 Baso % (Auto) 0.2 Neut # (Auto) 3.34 Lymph # (Auto) 0.66 L [place] # (Auto) 0.44 Eos # (Auto) 0.08 Baso # (Auto) 0.01 Immature Gran # (Auto) 0.01 Sodium 143 Potassium 3.7 Chloride 109 H Carbon Dioxide 30 Anion Gap 4 BUN 14 Creatinine 1.16 Est Cr Clr Drug Dosing 43.4 Est GFR ( Amer) 65.3 Est GFR (Non-Af Amer) 56.3 BUN/Creatinine Ratio 12.1 Glucose 95 Calcium 8.7 Magnesium 1.5 L Total Bilirubin 0.5 AST 10 L ALT 8 Alkaline Phosphatase 58 Total Protein 5.5 L Albumin 3.5 Globulin 2.0 L Albumin/Globulin Ratio 1.8 Diagnostic Findings Echocardiogram performed 11/13/2023: Mildly reduced LV systolic function with ejection fraction of 40-45%. Mild LVH. Mild aortic regurgitation and moderate aortic stenosis. Mild to moderate mitral regurgitation. Elevated estimated pulmonary pressures are greater than 60 mm of mercury. Chest x-ray obtained the time of Admission not reveal acute cardiopulmonary findings. Study of the lower extremities dated 09/29/2023 did not demonstrate any evidence of DVT. ECG Additional Comments: EKG obtained the time admission revealed sinus rhythm With right bundle branch block and poor R-wave progression across the precordium. PG Care Time/CCT Total # of Minutes Spent Total Time Spent with Patient: Total time spent is greater than 50% in coordination of care (as documented) at patient's floor/unit and/or counseling patient: Coding Level of Care Code 17519 INT INP/OBS CARE 3/75MIN Diagnoses Chest pain R07.9 Hypertension I10 Cardiomyopathy I42.9 Valvular heart disease I38
--- NOTE | 2023-11-14 19:49 | Discharge Summary ---
Date of Service November 14, 2023 Admission HPI Per Admitting Provider Arun is an 88 year old male with a PMH significant for HTN, HFrEF (LVEF of 34-40%), LBBB, moderate aortic stenosis, Prostate cancer S/P beam radiation therapy, GERD, and senile dementia of Alzheimers Type who presented to the [facility] ED on 11/13/23 with approximately 2 weeks of intermittent BL chest pain. He was noted to be hypertensive on arrival at 209/92, tachypneic at 26, bradycardic with HR in the 50s, but otherwise stable. Labs were significant for a BNP of 352, initial high sen trop of 12 11.6 on 2 hour repeat. Chest xray was read as negative for acute findings. ECG showed NSR with new RBBB and possible age indeterminate inferior and anterolateral infarcts. The ED spoke with Cardiology who recommended admission for better BP management and repeat echo. Prior to admission the patient was given 324 mg Aspirin. At the time of the exam the patient was sitting in bed in no acute distress. States that he has been experiencing intermittent epigastric abdominal pain which radiates up the chest in the substernal region. Feels like heartburn, lasts for a few minutes, will either resolve on it's own or when he takes Prilosec. Denies recent symptoms with exertion and denies any other radiation of the pain. Last night he took prilosec before bed and was able to sleep throughout the night. Was supposed to go golfing this am but decided to come to the ED for evaluation as he didn't feel "quite right". Has a hx of duodenal ulcer and hiatial hernia. Recent antihypertensive regimen has been 0.2 mg clonidine BID, 100 mg Losartan daily, and 25 mg Carvedilol BID. Had been on daily lasix for LE swe lling right > left. He was switched to 25 mg HCTZ/Spironolactone instead of lasix which significantly improved his swelling. However, he experiencing lower BP's with systolics in the 100's and mild lightheadedness with standing. He called the Cardiology office who told him to hold the HCTZ/spironolactone and did not recommend he restart the lasix. Denies recent fever, chills cough, nausea, vomiting, abd pain, dysuria, hematuria, melena, and recent trauma. He is a DNR/DNI. He confirms he did have his am antihypertensives this am prior to arrival. Principal Diagnosis Hypertensive urgency, noncardiac chest pain Discharge Exam PHYSICAL EXAMINATION Last 24h vital signs reviewed, see documentation in flowsheet General: comfortable appearing, no distress HEENT: Normocephalic, atraumatic, pupils round and equal, sclerae anicteric, no conjunctival injection, moist mucus membranes Lungs: Normal respiratory effort. Clear to auscultation bilaterally. No RRW Heart: Regular rate and rhythm, no murmurs. No JVD Abdomen: Soft, nontender, nondistended. Bowel sounds present. Extremities: Warm, dry, well-perfused. No extremity edema. Both shoulders mildly tender anteriorly but no erythema or effusion on exam Neuro: Alert and oriented x 4, face symmetric, moves 4 extremities well Psych: Normal affect and behavior Discharge Data Allergies Allergy/AdvReac Type Severity Reaction Status Date / Time penicillin G Allergy Unknown "YEARS Verified 10/09/23 13:56 AGO" - UNKNOWN Sulfa (Sulfonamide Allergy Unknown "YEARS Verified 10/09/23 13:56 Antibiotics) AGO" UNKNOWN REACTION Consultations 11/13/23 12:35 ED Decision to Admit Stat 11/13/23 12:59 Consult Cardiology Routine Hospital Course (1) Hypertension: Arun is an 88 year old male with a PMH significant for HTN, HFrEF (LVEF of 34-40%), LBBB, moderate aortic stenosis, Prostate cancer S/P beam radiation therapy, GERD, and senile dementia of Alzheimers Type who presented to the [facility] ED on 11/13/23 with approximately 2 weeks of intermittent BL chest pain. He was noted to be hypertensive on arrival at / Hypertensive urgency - treated in ED and early on in admission and resolved. I do not think his chest pain was cardiac nor related to the hypertension. -cont carvedilol and losartan -clonidine increased to 0.2/0.1/0.[address] 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 Was taking frequent nsaids for this pain. -Has a known hx of gastritis, GERD, Duodenal ulcer, and Hiatial hernia -troponins were negative, no significant ECG changes compared to previous, TTE without wma's and EF improved compared to last one in August 2023 -upper chest / shoulder pain consistent with musculoskeletal pain and some epigastric pain GI in origin -Dr. Isbell consulted, no further testing recommended at this time, recommended consider SGLT-2 -follow up with Dr. Estrada for epigastric pain - likely NSAID induced gastritis -continue PPI and advised stopping nsaids -recommended voltaran gel and acetaminophen for MSK pain -follow up with PCP - consider referral for shoulder injection if still not improving (3) HFrEF (heart failure with reduced ejection fraction): Was not in exacerbation and was euvolemic Repeat TTE with some improvement in EF TTE 09/22 with EF 35-40%, mod , mild-mod AI, mod MR, mild diastolic dysfunction and mild concentric LVH -on b-sweta and ARB, diuretics resumed at lower dose as above, consider SGLT-2 (4) GERD (gastroesophageal reflux disease): -See chest pain (5) Swelling of lower extremity: -Long hx of venous stasis with right > left -Swelling consistently improves with elevation, compression socks, and diuretics -Had a negative venous doppler of the RLE on 09/29/23 -Continue compression stockings and elevation at this time, low dose diuretic r esumed (6) Aortic stenosis: moderate, with mild-mod AR Total Time Total Time Spent Total Time Spent (In Minutes): < 30 mionutes Discharge Plan Discharge Items Patient Disposition: Home - Self-Care Reason For Visit: INTERMITTENT CHEST PAIN, HYPERTENSION Discharge Diagnosis: Hypertensive urgency, noncardiac chest pain Activity: Resume your previous activity Non-emergency contact: Primary Care Provider and Ground [employer] Call non-emergency contact if: you have any medication questions and your symptoms worsen Follow-up/Referrals: Calr Estrada Jr, MD, [facility] [Physician] - 11/22/23 3:30 pm (Cardiology follow up: Dr. Kenney 11/22/23 @ 3:30) Martín Castorena DO [Primary Care Provider] - 11/20/23 1:30 pm (PCP follow up Dr Andre 11/20/23 1:30) Diet: Heart Healthy and Low Sodium (2gm) Addtl Attending Provider Instructions: You were treated for severe high blood pressure -resume your usual meds and add clonidine 0.1 mg at midday -try taking a half tab daily of the HCTZ/spironolactone. alternatively you could take it every other day Ground Hand consulted. We did not find evidence of a heart attack. Agree that the chest pain is likely musculoskeletal (upper chest and shoulders) and GI / gastritis from NSAIDS -avoid NSAIDs for now - these could have made your BP go up as well. NSAIDS include ibuprofen/motrin/advil and naproxen/aleve -acetaminophen is safe to take as directed. max 3000 mg per 24h -diclofenac (voltaran) gel is also safe to use on your upper chest - it is an NSAID but it is only absorbed locally and doesn't affect your stomach -keep taking prilosec until stomach pain resolves Please schedule follow up with primary care ideally within 1-2 weeks to check your BP. You could be referred for steroid injection if your shoulder is still bothering you a lot, if/once your stomach pain resolves also follow up with Dr. Estrada Pending Studies at Discharge: No Stand-Alone Forms: My [facility] [employer], Smoking Cessation Medications and DC Order Prescriptions: New clonidine HCl 0.1 mg Tablet 0.1 mg PO .noon Qty: 30 0RF Rx Instructions: in addition to clonidine 0.2 mg in AM and PM spironolacton-hydrochlorothiaz 25-25 mg tablet 0.5 tab PO DAILY Qty: 1 0RF Rx Instructions: resuming at reduced dose Continued ferrous sulfate [FeroSul] 325 mg (65 mg iron) tablet 650 mg PO Q OTHER DAY cholecalciferol (vitamin D3) 50 mcg (2,000 unit) tablet 2,000 unit PO QAM losartan 100 mg tablet 100 mg PO DAILY Qty: 90 3RF carvedilol 25 mg tablet 25 mg PO BID Qty: 180 3RF Rx Instructions: must administer with a meal/food clonidine HCl 0.2 mg tablet 0.2 mg PO BID tamsulosin 0.4 mg capsule 0.4 mg PO DAILY Qty: 90 3RF nystatin-triamcinolone 100,000-0.1 unit/g-% cream 1 applic topical BID Qty: 15 0RF mecobalamin (vitamin B12) 1,000 mcg tablet,disintegrating 500 mcg SL HS Rx Instructions: place tablet under tongue and allow to dissolve for at least30 secs before swallowing cholestyramine (with sugar) 4 gram powder in packet See Rx Instructions .ROUTE .COMPLEX PRN (Reason: Diarrhea) Rx Instructions: DISSOLVE & TAKE 1 PACKAGE BY MOUTH TWICE DAILY NEEDED FOR DIARRHEA . AVOID OTHER MEDS WITHIN 1 HOUR BEFORE OR 4-6 HOURS AFTER DOSE. TAKE WITH MEAL/FOOD pantoprazole 40 mg tablet,delayed release (DR/EC) 40 mg PO DAILY Discontinued furosemide 40 mg tablet 20 mg PO UD Discharge Orders: Discharge Order (Routine); Ordered 11/14/23 Ordered By: Kerry Bonner Admission Data Admit Date/Time: 11/13/23 12:39 Attending Provider: Kerry Bonner Admit Provider: Florentin Freeman Primary Care Provider: Martín Castorena Other Providers: Florentin Freeman; Adithya Isbell Other Interventions: Discharge Summary Assessment (RN) Last Done: 11/14/23 17:09 Coding Level of Care Code 29207 IN/OBS DISCH 30 MIN/LESS Diagnoses Hypertension I10 Chest pain R07.9 HFrEF (heart failure with reduced ejection fraction) I50.20 GERD (gastroesophageal reflux disease) K21.9 Swelling of lower extremity M79.89 Aortic stenosis I35.0
== END 2023-11-14 17:59 | disposition home or self-care (01) ==
LOC: EDINP 08:41 → ED 08:41 → SUATTDRO 12:39 → 2S 15:47